=== PATIENT | female | born 1955 | race Caucasian/White ===

== ENCOUNTER 2022-06-25 14:32 | Emergency (ER) | payer BC ==
--- OUTSIDE RECORDS SUMMARY | 2022-06-25 14:35 | XMS REPORT | Clinical Summary ---
:1955 Author Organization [facility] MD [facility] Address [address] [place] [address] Care Team Providers Name Role Phone Luis Marti MD Unavailable MD Mac Primary Care Provider Kade Johnson MD Unavailable Allergies Active Allergy Reactions Severity Noted Date Comments Antihistamines - GI Intolerance Low 06/07/2020 Alkylamine Codeine GI Intolerance Low 09/19/2018 Other reactio n(s): nausea/vomiting Etodolac GI Intolerance, Low 10/07/2018 Extreme diar sonny Diarrhea Hydralazine Analogues Other (See Comments) 10/31/2020 migraine Hydrocodone GI Intolerance Low 09/19/2018 Other reactio n(s): nausea/vomiting Ibuprofen GI Intolerance Low 09/19/2018 Other reactio n(s): nausea/vomiting Morphine GI Intolerance Low 09/19/2018 Fuzzy head, n ot sure where she is Other reaction( s): nausea/vomiting Nabumetone Low 09/19/2018 Other reaction( s): nausea/vomiting Medications Medication Sig Dispensed Refills Start Date End Date Status alendronate once a week. 0 03/29/2020 Acti ve (FOSAMAX) 70 mg tablet cholecalciferol, Take 2,000 0 Ac tive vitamin D3, 25 mcg Units by mouth (1,000 unit) every other capsule day. cyanocobalamin Take 1,000 mcg 0 Active (VITAMIN B-12) 1000 by mouth every mcg tablet other day. rosuvastatin Take 20 mg by 0 Act kenan (CRESTOR) 20 mg mouth daily. tablet amLODIPine twice daily. 0 10/19/2020 Activ e (NORVASC) 5 mg tablet loperamide (IMODIUM Take 2 mg by 0 Active A-D) 2 mg tablet mouth as needed for diarrhea. bisoprolol (ZEBETA) daily. 0 09/19/20 Discontinued 5 mg tablet 21 (Therapy completed) spironolactone daily. 0 10/03/2020 09/19/20 Disc ontinued (ALDACTONE) 25 mg 21 (T herapy tablet completed) magnesium oxide 500 Take 1 tablet 90 tablet 1 12/13/202009/19 Discontinued mg (500 mg) by 21 (Therapy tabletIndications: mouth twice completed) Malignant neoplasm daily. of unspecified part of left bronchus or lung, not otherwise specified, Hypomagnesemia mupirocin APPLY 22 g 0 01/16/2021 09/19/20 Discontin ued (BACTROBAN) 2% TOPICALLY TO 21 (T herapy ointmentIndications AFFECTED completed) : Malignant AREA(S) TWICE neoplasm of DAILY. unspecified part of left bronchus or lung, not otherwise specified triamcinolone Apply 454 g 0 12/31/2020 09/19/20 Disco ntinued (KENALOG) 0.1% topically to 21 (T herapy creamIndications: affected co mpleted) Rash area(s) twice daily. to itchy red areas of rash (avoid face, armpit, groin) clobetasol Apply 45 g 1 12/31/2020 09/19/20 Disconti nued (TEMOVATE) 0.05% topically to 21 (Therapy creamIndications: affected co mpleted) Rash area(s) twice daily. thin smear to areas of most severe itching,inflam mation (avoid face, armpit, groin) mupirocin Apply 15 g 0 12/31/2020 09/19/20 Discontin ued (BACTROBAN) 2% topically to 21 (T herapy ointmentIndications affected completed) : Malignant area(s) twice neoplasm of daily. unspecified part of left bronchus or lung, not otherwise specified Active Problems Patient Care Coordination Note Formatting of this note might be differe nt from the original. Patient declines COVID-19 testing before radiation. Her last negative test was 09/11/20. Problem Noted Date Hyposmolality and/or hyponatremia 12/13/2020 Last Assessment & Plan: Formatting of th is note might be different from the original. Likely secondary to volume depletion fro m chronic diarrhea. Improved with hydration and IVF. She remains asymptomatic. We will recheck labs on 12/13 when she returns to clinic. Hyponatremia should improve as diarrhea is controlled. 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 Borderline prolon ged SC interval. Borderline rt axis deviation. nonspec ST depression, anterior leads 06/07/20: CT CHEST: IMPRESSION: 1. Enlarging lobulated 3.2 cm left uppe r lobe mass, suspicious for primary lung malignancy. 2. Nonspecific small pulmonary nodules, including a left upper lobe nodular opacity adjacent to the left major fissure that appears slightly more prominent, a new a small right upper lobe nodule, and o ther small stable pulmonary nodules. Alt catina those nodules are more likely related to infectious/inflammatory process, metastatic disease is also a consideration. Short-term follow-up CT advised for further assessment. 06/07/20: PETCT: IMPRESSION: There is a left upper lobe mass suspicio us for a primary lung malignancy. Degradation of image quality as a result of respiratory motion precludes evaluation of small pulmonary nodules of uncertain etio logy detected on breath-held imaging. 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 Overview: Degeneration Menopause 12/01/2001 Peripheral arterial occlusive disease (aka Peripheral artery disease) Overview: rt femoral stent 2008 and left femoral s tent 2017 Current use of anticoagulant Overview: xarelto Arteriosclerosis of carotid artery Overview: carotid artery stent lacement 2008 Coronary arteriosclerosis Encounters Date Type Specialty Care Team Description 05/15/2022 Office Visit Thoracic Medicine Carmencita Salamanca MD Primary m ucinous adenocarcinoma of lung <Unspecifi ed side> (Primary Dx) 05/15/2022 Ancillary Procedure Radiology Jean Paul Arzate, ALEJANDRA Prima ry mucinous adenocarcinoma of lung <Unspecifi ed side> 05/15/2022 Documentation Thoracic Medicine Mallory Ham 05/15/2022 Travel 01/23/2022 Office Visit Thoracic Medicine Carmencita Salamanca MD Primary m ucinous adenocarcinoma of lung <Unspecified side> (Primary Dx); Primary mucinou s adenocarcinoma of lung <Right side> 01/23/2022 Ancillary Procedure Radiology Primary mucinous adenocarcinoma of lung <Right christy e> 01/23/2022 Travel 10/10/2021 Office Visit Radiation Lakesha Watts, Malignant ne oplasm of Oncology unspecified part of [place], [place], right bronchu s or lung, not other shore specified 10/10/2021 Travel 09/19/2021 Office Visit Thoracic Medicine Carmencita Salamanca MD Primary m ucinous adenocarcinoma of lung <Right side> (Primary Dx); Malignant neopl asm of unspecified part of unspecified bronchus or lung 09/19/2021 Ancillary Procedure Radiology Carmencita Salamanca MD Maligna nt neoplasm of unspecified par t of unspecified bro nchus or lung 09/19/2021 Travel after 06/25/2021 Immunizations Name Administration Dates Next Due Pfizer SARS-CoV-2 Vaccination (Purple Cap) 02/25/2021, 030 05/2021 Surgical History Surgery Date Site/Laterality Comments HIP ARTHROPLASTY 11/01/2008 Right hip SECTION, CLASSIC 12/01/1994 - 11/30/1995 SECTION, CLASSIC 12/01/1993 - 11/30/1994 CYST REMOVAL 12/01/1999 - gangliion cyst r emoved 11/30/2000 L&R feet TOTAL HIP ARTHROPLASTY 11/01/2008 Right CAROTID STENT 08/09/2009 FEMORAL ARTERY STENT 10/13/2009 WRIST SURGERY 12/01/2009 - Left 11/30/2010 WRIST SURGERY 04/13/2013 Right FEMORAL ARTERY STENT 10/09/2018 [facility] EB[facility] 09/12/2020 N/A Procedure : BRONCHOSCOPY DX/TX INTERVENTION PERPH WITH EB US PERIPHERAL LES LESION-RADIAL SC OBE; Surgeon: Lavon Fitzgerald MD; Location: M AIN PULM PROC; Service: PULMONARY [facility] EBUS GUIDED 09/12/2020 N/A Procedure : BRONCHOSCOPY SAMPL 3/> NODE WITH EBUS 3 OR M ORE STATION/STRUX NODES; Surgeon: Lavon Fitzgerald MD; Lo cation: MAIN PULM PROC; Service: PULMONARY Medical History Medical History Date Comments Hypertension 2005 Hyperlipidemia 2016 Tooth disorder 2002 Degeneration Menopause 2001 Anemia 2014 Hemachromatosis Osteoporosis 2012 Arthritis 2011 Coronary arteriosclerosis Peripheral arterial occlusive disease rt femoral stent 2008 and left femoral stent 2018 Current use of anticoagulant xarelto Arteriosclerosis of carotid artery carot id artery stent lacement 2008 Social History Tobacco Use Types Packs/Day Years Used Date Former Smoker Cigarettes 1.5 25 02/17/1983 - 0 06/19/2011 Smokeless Tobacco: Never Used Comments: No longer smokes. Alcohol Use Standard Drinks/Week Comments Yes 14 (1 standard drink = 0.6 oz pure alcoh ol) Sex Assigned at Date Recorded Not on file Job Start Date Occupation Industry Not on file Not on file Not on file Obstetrics History Last Filed Vital Signs Vital Sign Reading Time Taken Comments Blood Pressure 152/69 05/15/2022 2:18 PM CDT Pulse 77 05/15/2022 2:18 PM CDT Temperature 36.8 C (98.2 F) 05/15/2022 2:18 PM CDT Respiratory Rate 18 05/15/2022 2:18 PM CDT Oxygen Saturation - - Inhaled Oxygen Concentration - - Weight 66.9 kg (147 lb 7.8 oz) 05/15/2022 2:18 PM CDT Height - - Body Mass Index 25.49 10/19/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 Plan of Treatment Date Type Specialty Care Team Description 08/14/2022 Lab Lab Patti Hughes, [employer] [address] [place], [place] [address] (Wo rk) 08/14/2022 Ancillary Procedure Radiology Julien Hughes, [employer] [address] [place], [place] [address] (Wo rk) 08/14/2022 Office Visit Thoracic Medicine Carmencita Salamanca MD [address] [place], [place] [address] (Wo rk) Health Maintenance Due Date Last Done Comments COVID-19 Vaccination (3 - Pfizer risk 03/25/2021 02/25/2021 , 02/03/2021 series) Medical Devices Implanted Type Area Aviation Safety Officer Device Identifier Shelf Exp iration Model / Date Serial / L ot Rt Wrist Plate Procedures Procedure Name Priority Date/Time Associated Diagnosis Comme nts PETCT SUBSEQUENT Routine 05/15/2022 12:09 Primary mucinous Res ults for this TREATMENT STRATEGY PM CDT adenocarcinoma of proc edure are in lung <Unspecified the result s side> section. FRACTIONATED BILIRUBIN Routine 05/15/2022 10:14 Primary mucino us Results for this AM CDT adenocarcinoma of procedure are in lung <Unspecified the result s side> section. TOTAL PROTEIN Routine 05/15/2022 10:14 Primary mucinous Result s for this AM CDT adenocarcinoma of procedure are in lung <Unspecified the result s side> section. ASPARTATE Routine 05/15/2022 10:14 Primary mucinous Results for this AMINOTRANSFERASE AM CDT adenocarcinoma of proced ure are in lung <Unspecified the result s side> section. ALANINE Routine 05/15/2022 10:14 Primary mucinous Results for this AMINOTRANSFERASE AM CDT adenocarcinoma of proced ure are in lung <Unspecified the result s side> section. ALKALINE PHOSPHATASE Routine 05/15/2022 10:14 Primary mucinous Results for this AM CDT adenocarcinoma of procedure are in lung <Unspecified the result s side> section. ALBUMIN LEVEL Routine 05/15/2022 10:14 Primary mucinous Result s for this AM CDT adenocarcinoma of procedure are in lung <Unspecified the result s side> section. CALCIUM LEVEL TOTAL Routine 05/15/2022 10:14 Primary mucinous Results for this AM CDT adenocarcinoma of procedure are in lung <Unspecified the result s side> section. .GLOMERULAR FILTRATION Routine 05/15/2022 10:14 Primary mucino us Results for this RATE AM CDT adenocarcinoma of procedure are in lung <Unspecified the result s side> section. SERUM CREATININE Routine 05/15/2022 10:14 Primary mucinous Res ults for this AM CDT adenocarcinoma of procedure are in lung <Unspecified the result s side> section. ELECTROLYTE PANEL Routine 05/15/2022 10:14 Primary mucinous Re sults for this AM CDT adenocarcinoma of procedure are in lung <Unspecified the result s side> section. BLOOD UREA NITROGEN Routine 05/15/2022 10:14 Primary mucinous Results for this AM CDT adenocarcinoma of procedure are in lung <Unspecified the result s side> section. GLUCOSE LEVEL Routine 05/15/2022 10:14 Primary mucinous Result s for this AM CDT adenocarcinoma of procedure are in lung <Unspecified the result s side> section. MANUAL DIFFERENTIAL Routine 05/15/2022 10:14 Primary mucinous Results for this AM CDT adenocarcinoma of procedure are in lung <Unspecified the result s side> section. Results CBC Routine 05/15/2022 10:14 Primary mucinous Results for this AM CDT adenocarcinoma of procedure are in lung <Unspecified the result s side> section. MAGNESIUM LEVEL Routine 05/15/2022 10:14 Primary mucinous Resu lts for this AM CDT adenocarcinoma of procedure are in lung <Unspecified the result s side> section. COMPREHENSIVE METABOLIC Routine 05/15/2022 10:14 Primary mucin ous PANEL AM CDT adenocarcinoma of lung <Unspecified side> COMPLETE BLOOD COUNT W/ Routine 05/15/2022 10:14 Primary mucin ous DIFFERENTIAL AM CDT adenocarcinoma of lung <Unspecified side> FRACTIONATED BILIRUBIN Routine 01/23/2022 10:32 Primary mucino us Results for this AM UPSETTER HELPER adenocarcinoma of procedure are in lung <Right side> the result s section. TOTAL PROTEIN Routine 01/23/2022 10:32 Primary mucinous Result s for this AM UPSETTER HELPER adenocarcinoma of procedure are in lung <Right side> the result s section. ASPARTATE Routine 01/23/2022 10:32 Primary mucinous Results for this AMINOTRANSFERASE AM UPSETTER HELPER adenocarcinoma of proced ure are in lung <Right side> the result s section. ALANINE Routine 01/23/2022 10:32 Primary mucinous Results for this AMINOTRANSFERASE AM UPSETTER HELPER adenocarcinoma of proced ure are in lung <Right side> the result s section. ALKALINE PHOSPHATASE Routine 01/23/2022 10:32 Primary mucinous Results for this AM UPSETTER HELPER adenocarcinoma of procedure are in lung <Right side> the result s section. ALBUMIN LEVEL Routine 01/23/2022 10:32 Primary mucinous Result s for this AM UPSETTER HELPER adenocarcinoma of procedure are in lung <Right side> the result s section. CALCIUM LEVEL TOTAL Routine 01/23/2022 10:32 Primary mucinous Results for this AM UPSETTER HELPER adenocarcinoma of procedure are in lung <Right side> the result s section. .GLOMERULAR FILTRATION Routine 01/23/2022 10:32 Primary mucino us Results for this RATE AM UPSETTER HELPER adenocarcinoma of procedure are in lung <Right side> the result s section. SERUM CREATININE Routine 01/23/2022 10:32 Primary mucinous Res ults for this AM UPSETTER HELPER adenocarcinoma of procedure are in lung <Right side> the result s section. ELECTROLYTE PANEL Routine 01/23/2022 10:32 Primary mucinous Re sults for this AM UPSETTER HELPER adenocarcinoma of procedure are in lung <Right side> the result s section. BLOOD UREA NITROGEN Routine 01/23/2022 10:32 Primary mucinous Results for this AM UPSETTER HELPER adenocarcinoma of procedure are in lung <Right side> the result s section. GLUCOSE LEVEL Routine 01/23/2022 10:32 Primary mucinous Result s for this AM UPSETTER HELPER adenocarcinoma of procedure are in lung <Right side> the result s section. MANUAL DIFFERENTIAL Routine 01/23/2022 10:32 Primary mucinous Results for this AM UPSETTER HELPER adenocarcinoma of procedure are in lung <Right side> the result s section. Results CBC Routine 01/23/2022 10:32 Primary mucinous Results for this AM UPSETTER HELPER adenocarcinoma of procedure are in lung <Right side> the result s section. LACTATE DEHYDROGENASE Routine 01/23/2022 10:32 Primary mucinou s Results for this AM UPSETTER HELPER adenocarcinoma of procedure are in lung <Right side> the result s section. MAGNESIUM LEVEL Routine 01/23/2022 10:32 Primary mucinous Resu lts for this AM UPSETTER HELPER adenocarcinoma of procedure are in lung <Right side> the result s section. COMPREHENSIVE METABOLIC Routine 01/23/2022 10:32 Primary mucin ous PANEL AM UPSETTER HELPER adenocarcinoma of lung <Right side> COMPLETE BLOOD COUNT W/ Routine 01/23/2022 10:32 Primary mucin ous DIFFERENTIAL AM UPSETTER HELPER adenocarcinoma of lung <Right side> PETCT SUBSEQUENT Routine 01/23/2022 10:03 Primary mucinous Res ults for this TREATMENT STRATEGY AM UPSETTER HELPER adenocarcinoma of proc edure are in lung <Right side> the result s section. PETCT SUBSEQUENT Routine 09/19/2021 12:48 Malignant neoplasm o f Results for this TREATMENT STRATEGY PM CDT unspecified part of pr ocedure are in unspecified bronchus the res ults or lung section. FRACTIONATED BILIRUBIN Routine 09/19/2021 11:25 Malignant neop lasm of Results for this AM CDT unspecified part of procedur e are in unspecified bronchus the res ults or lung section. TOTAL PROTEIN Routine 09/19/2021 11:25 Malignant neoplasm of R esults for this AM CDT unspecified part of procedur e are in unspecified bronchus the res ults or lung section. ASPARTATE Routine 09/19/2021 11:25 Malignant neoplasm of Re sults for this AMINOTRANSFERASE AM CDT unspecified part of proc edure are in unspecified bronchus the res ults or lung section. ALANINE Routine 09/19/2021 11:25 Malignant neoplasm of Re sults for this AMINOTRANSFERASE AM CDT unspecified part of proc edure are in unspecified bronchus the res ults or lung section. ALKALINE PHOSPHATASE Routine 09/19/2021 11:25 Malignant neopla sm of Results for this AM CDT unspecified part of procedur e are in unspecified bronchus the res ults or lung section. ALBUMIN LEVEL Routine 09/19/2021 11:25 Malignant neoplasm of R esults for this AM CDT unspecified part of procedur e are in unspecified bronchus the res ults or lung section. CALCIUM LEVEL TOTAL Routine 09/19/2021 11:25 Malignant neoplas m of Results for this AM CDT unspecified part of procedur e are in unspecified bronchus the res ults or lung section. .GLOMERULAR FILTRATION Routine 09/19/2021 11:25 Malignant neop lasm of Results for this RATE AM CDT unspecified part of procedur e are in unspecified bronchus the res ults or lung section. SERUM CREATININE Routine 09/19/2021 11:25 Malignant neoplasm o f Results for this AM CDT unspecified part of procedur e are in unspecified bronchus the res ults or lung section. ELECTROLYTE PANEL Routine 09/19/2021 11:25 Malignant neoplasm of Results for this AM CDT unspecified part of procedur e are in unspecified bronchus the res ults or lung section. BLOOD UREA NITROGEN Routine 09/19/2021 11:25 Malignant neoplas m of Results for this AM CDT unspecified part of procedur e are in unspecified bronchus the res ults or lung section. GLUCOSE LEVEL Routine 09/19/2021 11:25 Malignant neoplasm of R esults for this AM CDT unspecified part of procedur e are in unspecified bronchus the res ults or lung section. MANUAL DIFFERENTIAL Routine 09/19/2021 11:25 Malignant neoplas m of Results for this AM CDT unspecified part of procedur e are in unspecified bronchus the res ults or lung section. Results CBC Routine 09/19/2021 11:25 Malignant neoplasm of Re sults for this AM CDT unspecified part of procedur e are in unspecified bronchus the res ults or lung section. MAGNESIUM LEVEL Routine 09/19/2021 11:25 Malignant neoplasm of Results for this AM CDT unspecified part of procedur e are in unspecified bronchus the res ults or lung section. COMPREHENSIVE METABOLIC Routine 09/19/2021 11:25 Malignant treasure plasm of PANEL AM CDT unspecified part of unspecified bronchus or lung COMPLETE BLOOD COUNT W/ Routine 09/19/2021 11:25 Malignant treasure plasm of DIFFERENTIAL AM CDT unspecified part of unspecified bronchus or lung POC GLUCOSE SCREEN Routine 09/19/2021 11:21 Resul ts for this AM CDT procedure are i n the results section. after 06/25/2021 Results PETCT Subsequent Treatment Strategy (05/15/2022 12:09 PM CDT)Only the most recent of3 resultswithin the time period is included. Anatomical Region Laterality Modality Whole Body Positron Emission To mography (PET) Specimen (Source) Anatomical Collection Method Collection Time Re ceived Time Location / / Volume Laterality 05/15/2022 1:24 PM CDT Impressions 05/15/2022 2:02 PM CDT Stable post radiation findings in the left upper lobe Increase in density and development of F DG uptake in a right lower lobe mix attenuation lesion. This may represent lung adenocarcinoma or inflammatory process. Consider tissue sampling for further evaluation Narrative 05/15/2022 2:02 PM CDT FULL RESULT: Examination: FDG-PET/CT, 05/15/2022 12:09 PM Tumor Type: Mucinous adenocarcinoma of l hiren Clinical History: Mucinous adenocarcinom a of lung Indication: FDG-PET/CT is obtained to as sess extent of disease prior to subsequent treatment decisions. Comparison: 01/23/2022 Technique: Radiopharmaceutical: F-18 fluorodeoxyglu cose Administered activity: 9.1 mCi Route of administration: Intravenous via the right antecubital vein Localization time: 64 minutes Scan range: Vertex of the skull to the p roximal thighs CT scanning: Dose-optimized noncontrast CT Findings: Head and Neck: Nonspecific small thyroid nodules are st able. There is no hypermetabolic lymph node in the neck. Chest: Left upper lobe opacity with associated volume loss is unchanged. 2.5 cm mixed attenuation lesion in the medial right lower lobe (image 244) has increased in density compared to 01/23/2022 and was not pr esent on CT of 02/19/2021. This lesion no w has SUV max of 3.0. There is no hypermetabolic mediastinal or hilar lymph nodes. Atherosclerotic calcification of aorta and coronary arteries is noted. Small hiatal hernia is noted. Abdomen and Pelvis: There is no hydronephrosis. Hypodense ri ght renal lesion is stable. Heterogeneous FDG uptake in the liver is likely physiologic. Physiologic FDG uptake is noted in the spleen. Adrenal glands are within normal limits Musculoskeletal: Right hip prosthesis is again noted with streak artifacts obscuring adjacent structures. There are degenerative changes of osseous structures noted. Procedure Note Scarlett Strickland MD - 05/15/2022 FULL RESULT: Examination: FDG-PET/CT, 05/15/2022 12:09 PM Tumor Type: Mucinous adenocarcinoma of l hiren Clinical History: Mucinous adenocarcinom a of lung Indication: FDG-PET/CT is obtained to as sess extent of disease prior to subsequent treatment decisions. Comparison: 01/23/2022 Technique: Radiopharmaceutical: F-18 fluorodeoxyglu cose Administered activity: 9.1 mCi Route of administration: Intravenous via the right antecubital vein Localization time: 64 minutes Scan range: Vertex of the skull to the p roximal thighs CT scanning: Dose-optimized noncontrast CT Findings: Head and Neck: Nonspecific small thyroid nodules are st able. There is no hypermetabolic lymph node in the neck. Chest: Left upper lobe opacity with associated volume loss is unchanged. 2.5 cm mixed attenuation lesion in the medial right lower lobe (image 244) has increased in density compared to 01/23/2022 and was not present on CT of 02/19/2021. This lesion now has SUV max o f 3.0. There is no hypermetabolic mediastinal or hilar lymph nodes. Atherosclerotic calcification of aorta and coronary arteries is noted. Small hiatal hernia is noted. Abdomen and Pelvis: There is no hydronephrosis. Hypodense ri ght renal lesion is stable. Heterogeneous FDG uptake in the liver is likely physiologic. Physiologic FDG uptake is noted in the spleen. Adrenal glands are within normal limits Musculoskeletal: Right hip prosthesis is again noted with streak artifacts obscuring adjacent structures. There are degenerative changes of osseous structures noted. IMPRESSION: Stable post radiation findings in the le ft upper lobe Increase in density and development of F DG uptake in a right lower lobe mix attenuation lesion. This may represent lung adenocarcinoma or inflammatory process. Consider tissue sampling for further evaluation Jean Paul Arzate NP IMG PETCT ORDERABLES .Serum Creatinine (05/15/2022 10:14 AM CDT)Only the most recent of3 results within the time period is included. athologist Signature Creatinine 0.53 0.51 - 0.95 [facility] mg/dL REGION Comment: Testing performed at [facility], [address], [place] [address] Specimen Anatomical Collection Method Collection Time Receive d Time (Source) Location / / Volume Laterality Blood 05/15/2022 10:14 05/15/2022 AM CDT 11:36 AM CDT Jean Paul Arzate NP LAB BLOOD ORDERABLES Performing Organization Address City/State/[place] [phone] (ABNORMAL) .CBC (05/15/2022 10:14 AM CDT)Only the most recent of3 resultswithin the time period is included. P athologist Signature WBC 7.5 4.0 - 11.0 [facility] K/uL REGION Comment: All components of the CBC perfo rmed at [facility], [address] [facility], [place] [address] RBC 3.28 (L) 4.00 - 5.50 M/uL [facility] Comment: All components of the CBC perfo rmed at [facility], [address] [facility], [place] [address] Hgb 11.6 (L) 12.0 - 16.0 gm/dL [facility] Comment: As part of CBC or as an individ ual orderable testing performed at [facility], [address] [place] [address] Hct 34.3 (L) 37.0 - 47.0 % [facility] REG ION Comment: As part of CBC or as an individ ual orderable testing performed at [facility], [address] [facility], [place] [address] MCV 105 (H) 82 - 98 fL [facility] Comment: All components of the CBC perfo rmed at [facility], [address] [facility], [place] [address] MCH 35.4 (H) 27.0 - 31.0 pg [facility] RE GIEL Comment: All components of the CBC perfo rmed at [facility], [address] [facility], [place] [address] MCHC 33.8 31.0 - 36.0 gm/dL [facility] Comment: All components of the CBC perfo rmed at [facility], [address] [facility], [place] [address] RDW-SD 53.3 (H) 35.1 - 46.3 fL [facility] RE GION Comment: All components of the CBC perfo rmed at [facility], [address] [facility], [place] [address] RDW-CV 13.9 12.0 - 15.5 % [facility] REG ION Comment: All components of the CBC perfo rmed at [facility], [address] [facility], [place] [address] Platelet count 327 140 - 440 K/uL [facility] REGION Comment: As part of CBC or as an individ ual orderable testing performed at [facility], [address] [facility], [place] [address] MPV 9.6 4.0 - 10.4 fL [facility] REG ION Comment: All components of the CBC perfo rmed at [facility], [address] [facility], [place] [address] Specimen Anatomical Collection Method Collection Time Receive d Time (Source) Location / / Volume Laterality Blood 05/15/2022 10:14 05/15/2022 AM CDT 11:34 AM CDT Jean Paul Arzate NP LAB BLOOD ORDERABLES Performing Organization Address City/State/[place] [address] [phone] [facility] Glomerular Filtration Rate (05/15/2022 10:14 AM CDT)Only the most recent of3 resultswithin the time period is included. athologist Signature eGFR-AA 114 >=60 [facility] mL/min/1.73 REGION sq. m Comment: Normal eGFR >= 60 mL/min/1.73 m2 Note: The eGFR is calculated using the C KD-EPI equation. The eGFR declines with age. eGFR <60 mL/min/1.73 m2 is considered as "decreased". This equation should only be used for patients 18 and older. According to the National [employer] ion's Kidney Disease Outcome Quality Initiative (KDOQI) classification and 2012 Kidney Disease Improving Global Outcomes (KDIGO) Clinical Practice Guideline, the stage of CKD should be categorized based on estimated GFR. Stage Description GFR mL/min/1. 73 m2 1 Normal or high GFR >=90 2 Mildly decreased GFR 60-89 3a Mildly to moderately decreased GFR 45-59 3b Moderately to severely decreased GFR 30-44 4 Severely decreased GFR 15-29 5 Kidney failure <15 Testing performed at [facility], [address] [facility], [place] [address] eGFR-RD 99 >=60 mL/min/1.73 sq. m [facility] Comment: Normal eGFR >= 60 mL/min/1.73 m2 Note: The eGFR is calculated using the C KD-EPI equation. The eGFR declines with age. eGFR <60 mL/min/1.73 m2 is considered as "decreased". This equation should only be used for patients 18 and older. According to the National [employer] ion's Kidney Disease Outcome Quality Initiative (KDOQI) classification and 2012 Kidney Disease Improving Global Outcomes (KDIGO) Clinical Practice Guideline, the stage of CKD should be categorized based on estimated GFR. Stage Description GFR mL/min/1. 73 m2 1 Normal or high GFR >=90 2 Mildly decreased GFR 60-89 3a Mildly to moderately decreased GFR 45-59 3b Moderately to severely decreased GFR 30-44 4 Severely decreased GFR 15-29 5 Kidney failure <15 Testing performed at [facility], [address] [place] [address] Specimen Anatomical Collection Method Collection Time Receive d Time (Source) Location / / Volume Laterality Blood 05/15/2022 10:14 05/15/2022 AM CDT 11:36 AM CDT Jean Paul Arzate NP LAB BLOOD ORDERABLES Performing Organization Address City/State/ZIP Code Phon e Number [facility] [place] [phone] [facility] Fractionated Bilirubin (05/15/2022 10:14 AM CDT)Only the most recent of3 results within the time period is included. athologist Signature Bili Total 0.7 <=1.2 mg/dL [facility] Comment: Indocyanine Green (ICG) may cause falsel y elevated bilirubin results. Total and direct bilirubin must not be measured from samples containing indocyanine green. False elevation of total bilirubin can b e seen in patients with IgG concentrations above 28 g/L. Testing [facility] [address] [facility] [place] [address] Bili Direct <0.2 <=0.3 mg/dL [facility] REG ION Comment: Indocyanine Green (ICG) may cause falsel y elevated bilirubin results. Total and direct bilirubin must not be measured from samples containing indocyanine green. Testing performed at [facility], [address] [facility], [place] [address] Bili Indirect See Note 0.0 - 0.9 mg/dL [facility] REGION Comment: Unable to calculate Indirect Bilirubin r esult due to some parameters are outside reportable range Testing performed at [facility], [address] [place] [address] Specimen Anatomical Collection Method Collection Time Receive d Time (Source) Location / / Volume Laterality Blood 05/15/2022 10:14 05/15/2022 AM CDT 11:36 AM CDT Jean Paul Arzate NP LAB BLOOD ORDERABLES Performing Organization Address City/State/Z[place] [address] [phone] [facility] (ABNORMAL) Differential (05/15/2022 10:14 AM CDT)Only the most recent of3 resultswithin the time period is included. athologist Signature Neutrophil % 69.3 (H) 42.0 - [facility] 66.0 % REGION Comment: As part of Differential perform ed at [facility], [address] [place] [address] Lymphocyte % 18.1 (L) 24.0 - 44.0 % [facility] Comment: As part of Differential perform ed at [facility], [address] [place] [address] Monocyte % 11.0 (H) 2.0 - 7.0 % [facility] CHANCE ON Comment: As part of Differential perform ed at [facility], [address] [place] [address] Eosinophil % 0.9 (L) 1.0 - 4.0 % [facility] RE GION Comment: As part of Differential perform ed at [facility], [address] [place] [address] Basophil % 0.4 0.0 - 1.0 % [facility] CHANCE ON Comment: As part of Differential perform ed at [facility], [address] [place] [address] IGRE % 0.3 0.0 - 0.4 % [facility] REGIO N Comment: IGRE % count includes Metamyelocytes, My elocytes, and Promyelocytes. As part of Differential performed at [facility], [address] [place] [address] Neutrophil Abs 5.18 1.70 - 7.30 K/uL [facility] REGION Comment: As part of Differential perform ed at [facility], [address] [place] [address] Lymphocyte Abs 1.35 1.00 - 4.80 K/uL [facility] REGION Comment: As part of Differential perform ed at [facility], [address], [place] [address] Monocyte Abs 0.82 (H) 0.08 - 0.70 K/uL [facility] Comment: As part of Differential perform ed at [facility], [address] [facility], [place] [address] Eosinophil Abs 0.07 0.04 - 0.40 K/uL [facility] REGION Comment: As part of Differential perform ed at [facility], [address] [facility], [place] [address] Basophil Abs 0.03 0.00 - 0.10 K/uL [facility] Comment: As part of Differential perform ed at [facility], [address] [facility], [place] [address] IG Abs 0.02 0.00 - 0.04 K/uL [facility] REGION Comment: As part of Differential perform ed at [facility], [address] [facility], [place] [address] Specimen Anatomical Collection Method Collection Time Receive d Time (Source) Location / / Volume Laterality Blood 05/15/2022 10:14 05/15/2022 AM CDT 11:34 AM CDT Jean Paul Arzate NP LAB BLOOD ORDERABLES Performing Organization Address City/State/[place] [phone] BUN (05/15/2022 10:14 AM CDT)Only the most recent of3 resultswithin the time period is included. P athologist Signature BUN 14 6 - 23 [facility] mg/dL REGION Comment: Testing performed at [facility], [address] [facility], [place] [address] Specimen Anatomical Collection Method Collection Time Receive d Time (Source) Location / / Volume Laterality Blood 05/15/2022 10:14 05/15/2022 AM CDT 11:36 AM CDT Jean Paul Arzate NP LAB BLOOD ORDERABLES Performing Organization Address City/State/[place] [phone] ALT (05/15/2022 10:14 AM CDT)Only the most recent of3 resultswithin the time period is included. P athologist Signature ALT 11 <=33 U/L [facility] Comment: Testing performed at [facility], [address], [place] [address] Specimen Anatomical Collection Method Collection Time Receive d Time (Source) Location / / Volume Laterality Blood 05/15/2022 10:14 05/15/2022 AM CDT 11:36 AM CDT Jean Paul Arzate NP LAB BLOOD ORDERABLES Performing Organization Address City/State/Z[place] [address] [phone] Aspartate Aminotransferase (05/15/2022 10:14 AM CDT)Only the most recent of3 resultswithin the time period is included. P athologist Signature AST 20 <=32 U/L [facility] Comment: Testing performed at [facility], [address], [place] [address] Specimen Anatomical Collection Method Collection Time Receive d Time (Source) Location / / Volume Laterality Blood 05/15/2022 10:14 05/15/2022 AM CDT 11:36 AM CDT Jean Paul Arzate NP LAB BLOOD ORDERABLES Performing Organization Address City/State/[place] [address] [phone] Total Protein (05/15/2022 10:14 AM CDT)Only the most recent of3 resultswithin the time period is included. P athologist Signature Total Protein 7.7 6.4 - 8.3 [facility] g/dL REGION Comment: Testing performed at [facility], [address] [facility], [place] [address] Specimen Anatomical Collection Method Collection Time Receive d Time (Source) Location / / Volume Laterality Blood 05/15/2022 10:14 05/15/2022 AM CDT 11:36 AM CDT Jean Paul Arzate NP LAB BLOOD ORDERABLES Performing Organization Address City/State/[place] [phone] (ABNORMAL) Alkaline Phosphatase (05/15/2022 10:14 AM CDT)Only the most recent of 3 resultswithin the time period is included. P athologist Signature Alk Phos 151 (H) 35 - 104 [facility] U/L REGION Comment: Testing performed at [facility], [address] [facility], [place] [address] Specimen Anatomical Collection Method Collection Time Receive d Time (Source) Location / / Volume Laterality Blood 05/15/2022 10:14 05/15/2022 AM CDT 11:36 AM CDT Jean Paul Arzate NP LAB BLOOD ORDERABLES Performing Organization Address City/State/[place] [phone] (ABNORMAL) Magnesium Level (05/15/2022 10:14 AM CDT)Only the most recent of3 resultswithin the time period is included. athologist [facility] Magnesium 1.4 (L) 1.6 - 2.6 [facility] mg/dL REGION Comment: Testing performed at [facility], [address], [place] [address] Specimen Anatomical Collection Method Collection Time Receive d Time (Source) Location / / Volume Laterality Blood 05/15/2022 10:14 05/15/2022 AM CDT 11:36 AM CDT Jean Paul Arzate NP LAB BLOOD ORDERABLES Performing Organization Address City/State/[place] [phone] (ABNORMAL) Glucose Level (05/15/2022 10:14 AM CDT)Only the most recent of3 resultswithin the time period is included. P athologist Signature Glucose Level 106 (H) 70 - 99 [facility] mg/dL REGION Comment: Effective 06/26/16, the glucose reference intervals have been updated based on [place] [employer] guidelines (Standards of Medical Care in Diabetes 2016. Diabetes Care 2016; 39: S13-S22). Fasting blood glucose: Normal: 70-99 mg/dL Impaired fasting glucose (increased risk for diabetes or pre-diabetes): 100- 125 mg/dL Diabetes mellitus: >/=126 mg/dL Random blood glucose: Normal: 70-199 mg/dL Note: Random glucose >100 mg/dL is assoc iated with increased risk for diabetes Testing performed at [facility], [address] [place] [address] Specimen Anatomical Collection Method Collection Time Receive d Time (Source) Location / / Volume Laterality Blood 05/15/2022 10:14 05/15/2022 AM CDT 11:36 AM CDT Jean Paul Arzate NP LAB BLOOD ORDERABLES Performing Organization Address City/State/[place] [phone] Calcium Level (05/15/2022 10:14 AM CDT)Only the most recent of3 resultswithin the time period is included. P athologist Signature Calcium Lvl 10.2 8.4 - 10.2 [facility] mg/dL REGION Comment: Testing performed at [facility], [address] [facility], [place] [address] Specimen Anatomical Collection Method Collection Time Receive d Time (Source) Location / / Volume Laterality Blood 05/15/2022 10:14 05/15/2022 AM CDT 11:36 AM CDT Jean Paul Arzate NP LAB BLOOD ORDERABLES Performing Organization Address City/[facility]/ZIP [place] [phone] Albumin Level (05/15/2022 10:14 AM CDT)Only the most recent of3 resultswithin the time period is included. P athologist Signature Albumin Lvl 4.4 3.5 - 5.2 [facility] gm/dL REGION Comment: Testing performed at [facility], [address] [facility], [place] [address] Specimen Anatomical Collection Method Collection Time Receive d Time (Source) Location / / Volume Laterality Blood 05/15/2022 10:14 05/15/2022 AM CDT 11:36 AM CDT Jean Paul Arzate NP LAB BLOOD ORDERABLES Performing Organization Address City/State/[place] [phone] (ABNORMAL) Electrolyte Panel (05/15/2022 10:14 AM CDT)Only the most recent of3 resultswithin the time period is included. athologist Signature Sodium Lvl 139 136 - 145 [facility] mEq/L REGION Comment: Testing performed at [facility], [address] [facility], [place] [address] Potassium Lvl 3.4 (L) 3.5 - 5.1 mEq/L [facility] ON REGION Comment: Testing performed at [facility], [address] [facility], [place] [address] Chloride 97 (L) 98 - 107 mEq/L [facility] RE GION Comment: Testing performed at [facility], [address] [facility], [place] [address] CO2 30 (H) 22 - 29 mEq/L [facility] REG ION Comment: Testing performed at [facility], [address] [facility], [place] [address] Anion Gap 12 4 - 14 mEq/L [facility] CHANCE ON Comment: Testing performed at [facility], [address] [facility], [place] [address] Specimen Anatomical Collection Method Collection Time Receive d Time (Source) Location / / Volume Laterality Blood 05/15/2022 10:14 05/15/2022 AM CDT 11:36 AM CDT Jean Paul Arzate NP LAB BLOOD ORDERABLES Performing Organization Address City/State/Z[place] [phone] LDH (01/23/2022 10:32 AM UPSETTER HELPER) athologist Signature LDH 171 135 - 214 [facility] U/L Comment: Results greater than 1651 U/L may not be reliable due to matrix effect with extended dilution as it exceeds the dyeing machine feeder s recommended limit. Caution should be exercised when interpreting such fouzia ues and done in conjunction with clinica l context. Testing performed at [facility], [address] [place] [address] Specimen Anatomical Collection Method Collection Time Receive d Time (Source) Location / / Volume Laterality Blood 01/23/2022 10:32 01/23/2022 AM UPSETTER HELPER 10:39 AM UPSETTER HELPER Jean Paul Arzate NP LAB BLOOD ORDERABLES Performing Organization Address City/State/ZIP Code Phon e Number [facility] [place] [address] [address] [facility] [place] [address] [facility] (ABNORMAL) POC Glucose Screen (09/19/2021 11:21 AM CDT) athologist Signature POC Glucose 116 (H) 70 - 99 POC [facility] mg/dL Comment: Capillary blood samples, e.g. obtained b y fingerstick, may have inaccurate results in patients with decreased peripheral blood flow. Method description: All results are mimi ured using Electrochemistry test methodology. The glucose in the sample mixes with the reagents on the test strip. The reaction produces an electric current. The amount of current produced is proportion al to the glucose concentration in the blood. PO Sample Type Venous POC [facility] Performing Lab [facility] POC [facility] Comment: Diagnostic Imaging [facility], [address] [place] [address]; Point of Care Loan Originator: Meron Alston MD Specimen Anatomical Collection Method Collection Time Receive d Time (Source) Location / / Volume Laterality Blood 09/19/2021 11:21 09/19/2021 AM CDT 11:21 AM CDT Carmencita Salamanca MD POCT ORDERABLES - DEVICE Performing Organization Address City/State/ZIP Code Phon e Number POC [facility] after 06/25/2021 Insurance Payer Benefit Plan / Subscriber ID Effective Dates Phone Addre ss Type Group [employer] PPO POS [id number] 1995-Present [address] [place] [address] Guarantor Name Account Type Relation to Date of Phone Bill ing Patient Address Jesusita Rodriguez Personal/Family Self 1955 [address] (Home) [place] [address] Jesusita Rodriguez Personal/Family Self 1955 [address]) [place] [address] Care Teams Pumper Gager Relationship Specialty Start Date End Date Luis Marti MD PCP - External Internal Medicine 05/23/[address] [place] [id number] Lakesha Watts MD PCP - General Cardiothoracic Surgery 05/23/20 [address] [place], [place] [id number] Medardo Johnson 09/20/20 MD [address]ade
--- OUTSIDE RECORDS SUMMARY | 2022-06-25 14:37 | XMS REPORT | Continuity of Care Document ---
:1955 Author Organization [facility] t Address [address] [place] [address] Care Team Providers Name Role Phone [phone] Primary Care Physician Unavailable SYSTEM, NOT IN Attending Clinician Unavailable JOSE Attending Clinician Unavailable ROBSON Attending Clinician Unavailable Cheikh JULES Attending Clinician Ne ROBERTS Attending Clinician Jitendra Attending Clinician Unavailable CHEIKH Attending Clinician Unavailable Mac JULES Attending Clinician Christi JULES Attending Clinician MAC Attending Clinician Unavailable CHRISTI Attending Clinician Unavailable NE Attending Clinician Unavailable Andrea CARDENAS Attending Clinician Unavailable Dilcia FOSS Attending Clinician Unavailable Fortunato ARGUETA Attending Clinician Unavailable Spencer TALBOT Attending Clinician Unavailable DAMON MARTINEZ Attending Clinician Unavailable Andrea CARDENAS Admitting Clinician Unavailable Payers Payer Name Policy Type Policy Number Effective Date Expiration Date S ource [place] POS [id number] 1995 00:00:00 Problems Condition Condition Condition Status Onset Resolution Last Treating Co mments Source Name Details Category Date Date Treatment Clinician Date Hyposmolal Hyposmolal Disease Active Last U nivers ity and/or ity and/or 1-13 Assessmen ity of hyponatrem hyponatrem 00:00: t & Plan: [place] 00 Formatroge JULES g of this Anders note n might be Cancer different Center from the original. Likely secondary to volume depletion from chronic diarrhea. Improved with hydration and IVF. She remains asymptoma tic. We will recheck labs on 12/13 when she returns to clinic. Hyponatre tasha should improve as diarrhea is controlle d. 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 Center 06/27/20: EK, SR. Borderlin e prolonged [place] interval. Borderlin e rt axis deviation . nonspec ST depressio n, anterior leads 06/07/20: CT CHEST: IMPRESSIO N:1. Enlarging lobulated 3.2 cm left upper lobe mass, suspiciou s for primary lung malignanc y.2. Nonspecif ic small pulmonary nodules, including a left upper lobe nodular opacity adjacent to the left major fissure that appears slightly more prominent , a new a small right upper lobe nodule, and other small stable pulmonary nodules. Although those nodules are more likely related to infectiou s/inflamm atory process, metastati c disease is also a considera tion. Short-ter m follow-up CT advised for further assessmen t. 0: PETCT: IMPRESSIO N:There is a left upper lobe mass suspiciou s for a primary lung malignanc y. Degradati on of image quality as a result of respirato ry motion precludes evaluatio n of small pulmonary nodules of uncertain etiology detected on breath-he ld imaging. There are no chu or distant-e xtrathora cic systemic metastase s Hypertensi Hypertensi Disease Active U nivers on on 06-07 ity of 00:00: [place] 00 MD [facility] Stented Stented Disease Active Overview: Univ ers artery artery 06-07 Formattin ity of 00:00: g of this note might be Andshermano different n from the Cancer original. Center Bilateral femoral Anticoagul Anticoagul Disease Active 2020- U [place]by ant ant 7 ity of therapy therapy 00:00: MD [facility] Cerebrovas Cerebrovas Disease Active 2020-0 U [place] cular cular 06-07 ity of disease disease 00:00: 00 MD [facility] Peripheral Peripheral Disease Active 2020-0 U [place] vascular vascular 06-07 ity of disease disease 00:00: 00 MD [facility] Other Other Disease Active Univers dietary dietary 06-07 ity of vitamin vitamin 00:00: [place] B12 B12 00 deficiency deficiency An derso anemia anemia n Cancer Center Lung mass Lung mass Disease Active Uni vers 6-30 ity of 00:00: 00 MD [facility] 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 0-16 ity of pain pain 00:00: [place] syndrome syndrome 00 of lower of lower Percy o limb limb n Cancer Center Myofascial Myofascial Disease Active 2018-12 U nivsherman pain pain 0-16 ity of 00:00: [place] 00 MD [facility] Pain in Pain in Disease Active 2018-12 Univers left knee left knee 0-16 ity of 00:00: 00 MD [facility] Hyperlipid Hyperlipid Disease Active U shelby emia emia 12-01 ity of 00:00: [place] 00 MD [facility] Anemia Anemia Disease Active Overview: Univer s 12-01 Formattin ity of 00:00: g of this note might be Anderso different n from the Cancer original. 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 Center Degenerat ion Menopause Menopause Disease Active Uni vers 12-01 ity of 00:00: [place] 00 MD [facility] [place] Peripheral Peripheral Disease Active Overview : Univers arterial arterial Formattin ity of occlusive occlusive g of this [place] disease disease note (aka (aka might be Anderso Peripheral Peripheral different n artery artery from the Cancer disease) disease) original. [address] ter rt femoral stent 2008 and left femoral stent 2017 Current Current Disease Active Overview: Univ ers use of use of Formattin ity of anticoagul anticoagul g of this [place] ant ant note might be Anderso different n from the Cancer original. [place] xarelto Arterioscl Arterioscl Disease Active Overview : Univers erosis of erosis of Formattin i ty of carotid carotid g of this [place] artery artery note might be Anderso different n from the Cancer original. Center carotid artery stent lacement 2008 Coronary Coronary Disease Active Unive rs arterioscl arterioscl it y of erosis erosis [place] MD [facility] Allergies, Adverse Reactions, Alerts Allergy Allergy Status Severity Reaction(s) Onset Inactive Treating Comm ents Source Name Type Date Date Clinician Hydralaspencer Propmadhavi Active Other (See 2019-12 migraine Univers ine ty to Comments) 01-01 ity of Analogue adverse 00:00: [place] s reaction 00 MD samantha [facility]ant[facility] Antihist Drug Active GI Univers amines - Allergy Intolerance 06-07 it y of Alkylami 00:00: [place] ne 00 MD Aec santana [facility] Etodolac Drug Active Diarrhea 2017-12 Extreme Unive rs Allergy 12-07 diarrhea ity of 00:00: [place] 00 MD [facility] etodolac DA Active SV 2017-12 [facility] 12-07 [place] 00:00: [address] etodolac DA Active SV DIARRHEA 2017-12 [facility] 12-07 [place] 00:00: [address] ibuprofe DA Active SV 2017-12 [facility] n 0-20 [place] 00:00: [address] nabumeto DA Active SV 2017-12 [facility] ne 0-20 [place] 00:00: [address] antiflam DA Active SV 2017-12 [facility] matory 0-20 [place] medicati 00:00: [address] morphine DA Active SV nausea/vomit 2017-12 HC A ing 0-20 00:00: [address] codeine DA Active SV nausea/vomit 2017-12 [facility] ing 0-20 00:00: [address] hydrocod DA Active SV nausea/vomit 2017-12 HC A one ing 0-20 West 00:00: [address] ibuprofe DA Active SV nausea/vomit 2017-12 HC A n ing 0-20 00:00: [address] nabumeto DA Active SV nausea/vomit 2017-12 HC A ne ing 0-20 West 00:00: [address] Codeine Drug Active GI 2017-12 Other Univers Allergy Intolerance 0-20 reaction( i ty of 00:00: s): [place] nausea/vo MD robin Bello [facility] Hydrocod Drug Active GI 2017-12 Other Univers one Allergy Intolerance 0-20 reaction( i ty of 00:00: s): [place] nausea/vo MD robin santana [facility] Ibuprofe Drug Active GI 2017-12 Other Univers n Allergy Intolerance 0-20 reaction( i ty of 00:00: s): [place] nausea/vo MD robin santana [facility] Morphine Drug Active GI 2017-12 Fuzzy Univers Allergy Intolerance 0-20 head, not i ty of 00:00: sure [place] where she MD Finesse Bello reaction( n s): Cancer nausea/vo Center [facility] Nabumeto Drug Active 2017-12 Other Univers ne Allergy 0-20 reaction( ity of 00:00: s): [place] nausea/vo MD robin Bello [facility] morphine DA Active SV 2017-12 [facility] 0-20 [place] 00:00: [address] codeine DA Active SV 2017-12 [facility] 0-20 [place] 00:00: [address] hydrocod DA Active SV 2017-12 [facility] one 0-20 00:00: [address] ANTIHIST DA Active U 2003-0 [facility] AMINE - 00:00: [address] No Known DA Active U 2003-0 [facility] Contrast - [place] Allergie 00:00: [address] No Known DA Active U 2003-0 [facility] Food - [place] Allergie 00:00: [address] No Known DA Active U 2003-0 [facility] Other 6-02 [place] Allergie 00:00: [address] Social History Social Habit Start Date Stop Date Quantity Comments Source Alcohol intake 2022-01-22 2022-01-22 Current drinker Unive rsity of 00:00:00 00:00:00 of alcohol [facility] ([facility] Cigarettes smoked 2020-06-07 2020-06-07 Univers ity of current (pack per 00:00:00 00:00:00 [place] Fortunato Raza Jimbo ) - Reported Cancer Ce nter Cigarette 2020-06-07 2020-06-07 University of pack-years 00:00:00 00:00:00 Ethan sanderson [facility] Tobacco use and 2020-06-07 2020-06-07 Smokeless Universit y of exposure 00:00:00 00:00:00 tobacco non-user [facility] Tobacco Comment 2020-06-07 2020-06-07 No longer Universit y of 00:00:00 00:00:00 smokes. Ethan sanderson [facility] History of tobacco 1983-02-17 2011-06-19 Current smoker Un iversity of use 00:00:00 00:00:00 Ethan sanderson [facility] Sex [birth year] Universit y of 00:00:00 00:00:00 Ethan sanderson [facility] Smoking Status Start Date Stop Date Source Ex-smoker 2020-06-07 00:00:00 2020-06-07 00:00:00 Universi ty of [facility] Medications Ordered Filled Start Stop Current Ordering Indication Dosage Frequency Signature Comments Components Source Medication Medication Date Date Medication? Clinician (SIG) Name Name cholecalcif Yes 2000U Take 2,000 Univers ramírez, 6-15 Units by ity of vitamin D3, 14:39: mouth [place] 25 mcg 02 every MD (1,000 other day. Anderso unit) n capsule Cancer Center cyanocobala Yes 1000ug Take 1,000 Univers min 6-15 mcg by ity of (VITAMIN 14:39: mouth [place] B-12) 1000 02 every MD mcg tablet other day. And erso n Cancer Center rosuvastati Yes 20mg Take 20 mg Univers n (CRESTOR) 6-15 by mouth ity of 20 mg 14:39: daily. [place] tablet 02 MD [facility] loperamide Yes 2mg Take 2 mg Un [place] (IMODIUM 6-15 by mouth ity of A-D) 2 mg 14:39: as needed Doug as tablet 02 for MD [facility] bisoprolol 2020-12- No daily. Univ ers (ZEBETA) 5 0-20 10-20 ity of mg tablet 15:16: 00:00 [place] 30 :00 MD Ace [facility] mupirocin 2020- No Malignant APPLY U nivers (BACTROBAN) 2-16 10-20 neoplasm of TOPICALLY ity of 2% ointment 00:00: 00:00 unspecified TO [place] 00 :00 part of AFFECTED MD left AREA(S) Anderso bronchus or TWICE n lung, not DAILY. Cancer otherwise Center specified triamcinolo 2020- No Rash Apply Univ ers ne 12-31 10-20 topically ity of (KENALOG) 00:00: 00:00 to [place] 0.1% cream 00 :00 affected MD area(s) Anderso twice n daily. to Cancer itchy red Center areas of rash (avoid face, armpit, groin) clobetasol 2020- No Rash Apply Unive rs (TEMOVATE) 12-31 10-20 topically ity of 0.05% cream 00:00: 00:00 to [place] 00 :00 affected MD area(s) Anderso twice n daily. Cancer thin smear Center to areas of most severe itching,in flammation (avoid face, armpit, groin) mupirocin 2020- No Malignant Apply U nivers (BACTROBAN) 12-31 10-20 neoplasm of topically ity of 2% ointment 00:00: 00:00 unspecified to [place] 00 :00 part of affected MD left area(s) Anderso bronchus or twice n lung, not daily. Cancer otherwise Center specified magnesium 2020- No Hypomagnese 500mg Take 1 Univers oxide 500 1-13 10-20 tasha tablet ity of mg tablet 00:00: 00:00 (500 mg) Doug as 00 :00 by mouth MD twice Ace daily. n Cancer Center amLODIPine 2019-12 Yes twice Univer s (NORVASC) 5 1-19 daily. ity of mg tablet 00:00: [place] 00 MD [facility] spironolact 2019-12- No daily. Uni vers one 12-03 10-20 ity of (ALDACTONE) 00:00: 00:00 [place] 25 mg 00 :00 MD [facility] alendronate Yes once a Univ ers (FOSAMAX) 4-29 week. ity of 70 mg 00:00: [place] tablet 00 MD [facility] Immunizations Ordered Filled Immunization Date Status Comments Sour e Immunization Name Name Pfizer SARS-CoV-2 2021-02-25 Completed Univer sity of Vaccination (Purple 00:00:00 Etahn [facility]) [facility] Pfizer SARS-CoV-2 2021-02-03 Completed Univer sity of Vaccination (Purple 00:00:00 [place] MD Choi [facility]) [facility] Center Vital Signs Vital Name Observation Time Observation Value Comments Source WEIGHT 2020-09-20 10:48:12 70.4 kg WEIGHT 2020-09-06 08:50:00 71.1 kg WEIGHT 2020-06-27 13:44:00 71.2 kg HEIGHT 2020-06-07 00:00:00 162 cm WEIGHT 2020-06-07 00:00:00 72 kg Systolic blood 2022-05-15 19:18:00 152 mm[Hg] Univer sity of pressure [facility] Diastolic blood 2022-05-15 19:18:00 69 mm[Hg] Unive rsity of pressure [facility] Heart rate 2022-05-15 19:18:00 77 /min Universi ty [facility] Body temperature 2022-05-15 19:18:00 36.78 [place] Univ ersity Oxana [facility] Respiratory rate 2022-05-15 19:18:00 18 /min Univ ersity Oxana [facility] Body weight 2022-05-15 19:18:00 66.9 kg Universi ty [facility] BMI 2022-05-15 19:18:00 25.49 kg/m2 Universi ty [facility] Procedures Procedure Date / Time Performing Clinician Source Performed PETCT SUBSEQUENT TREATMENT 2022-05-15 17:09:55 Jean Paul Arzate [facility] STRATEGY [facility] COMPLETE BLOOD COUNT W/ 2022-05-15 15:14:00 Jean Paul Arzate [facility] DIFFERENTIAL [facility] COMPREHENSIVE METABOLIC 2022-05-15 15:14:00 Jean Paul Arzate [facility] PANEL [facility] Center MAGNESIUM LEVEL 2022-05-15 15:14:00 Jean Paul Arzate [facility] Results CBC 2022-05-15 15:14:00 Iván Arzateharjinder [facility] Center MANUAL DIFFERENTIAL 2022-05-15 15:14:00 Jean Paul Arzate [facility] GLUCOSE LEVEL 2022-05-15 15:14:00 Jean Paul Arzate [facility] BLOOD UREA NITROGEN 2022-05-15 15:14:00 Jean Paul Arzate [facility] ELECTROLYTE PANEL 2022-05-15 15:14:00 Iván Arzateharjinder [facility] SERUM CREATININE 2022-05-15 15:14:00 Iván Arzateharjinder [facility] .GLOMERULAR FILTRATION 2022-05-15 15:14:00 Jean Paul Arzate [facility] RATE [facility] CALCIUM LEVEL TOTAL 2022-05-15 15:14:00 Jean Paul Arzate [facility] Center ALBUMIN LEVEL 2022-05-15 15:14:00 Jean Paul Arzate [facility] Center ALKALINE PHOSPHATASE 2022-05-15 15:14:00 Jean Paul Arzate [facility] ALANINE AMINOTRANSFERASE 2022-05-15 15:14:00 [facility] ASPARTATE AMINOTRANSFERASE 2022-05-15 15:14:00 Jean Paul Arzate [facility] TOTAL PROTEIN 2022-05-15 15:14:00 Jean Paul Arzate o [facility] FRACTIONATED BILIRUBIN 2022-05-15 15:14:00 [facility] ELECTROL[facility]TE PANEL 2022-01-23 16:32:00 Jean Paul Arzate [facility] SERUM CREATININE 2022-01-23 16:32:00 Jean Paul Arzate [facility] .GLOMERULAR FILTRATION 2022-01-23 16:32:00 [facility] [place] R[facility] CALCIUM LEVEL TOTAL 2022-01-23 16:32:00 Jean Paul Arzate [facility] ALBUMIN LEVEL 2022-01-23 16:32:00 Jean Paul Arzate [facility] ALKALINE PHOSPHATASE 2022-01-23 16:32:00 Jean Paul Arzate y [facility] ALANINE AMINOTRANSFERASE 2022-01-23 16:32:00 [facility] ASPARTATE AMINOTRANSFERASE 2022-01-23 16:32:00 [facility] TOTAL PROTEIN 2022-01-23 16:32:00 Jean Paul Arzate [facility] FRACTIONATED BILIRUBIN 2022-01-23 16:32:00 [facility] COMPLETE BLOOD COUNT W/ 2022-01-23 16:32:00 Jean Paul Arzate [facility] DIFFERENTIAL [facility] COMPREHENSIVE METABOLIC 2022-01-23 16:32:00 Jean Paul Arzate [facility] PANEL [facility] MAGNESIUM LEVEL 2022-01-23 16:32:00 Jean Paul Arzate [facility] LACTATE DEHYDROGENASE 2022-01-23 16:32:00 Jean Paul Arzate sity [facility] Results CBC 2022-01-23 16:32:00 Jean Paul Arzate [facility] MANUAL DIFFERENTIAL 2022-01-23 16:32:00 [facility] GLU[facility]SE LEV[facility] 2022-01-23 16:32:00 Ne [facility] BLOOD UREA NITROGEN 2022-01-23 16:32:00 Jean Paul Arzate [facility] PETCT SUBSEQUENT TREATMENT 2022-01-23 16:03:30 Jean Paul Arzate [facility] PETCT SUBSEQUENT TREATMENT 2021-09-19 17:48:13 Tu, Carmencita [facility] COMPLETE BLOOD COUNT W/ 2021-09-19 16:25:00 Tu, [facility] DIFFERENTIAL [facility] COMPREHENSIVE METABOLIC 2021-09-19 16:25:00 Tu, [facility] PANEL [facility] MAGNESIUM LEVEL 2021-09-19 16:25:00 Tu, [facility] Results CBC 2021-09-19 16:25:00 Tu, [facility] MANUAL DIFFERENTIAL 2021-09-19 16:25:00 Tu, [facility] GLUCOSE LEVEL 2021-09-19 16:25:00 Tu, [facility] BLOOD UREA NITROGEN 2021-09-19 16:25:00 Tu, [facility] ELECTROLYTE PANEL 2021-09-19 16:25:00 Tu, [facility] SERUM CREATININE 2021-09-19 16:25:00 Tu, [facility] .GLOMERULAR FILTRATION 2021-09-19 16:25:00 Tu, [facility] RATE [facility] CALCIUM LEVEL TOTAL 2021-09-19 16:25:00 Tu, [facility] ALBUMIN LEVEL 2021-09-19 16:25:00 Tu, [facility] ALKALINE PHOSPHATASE 2021-09-19 16:25:00 Tu, [facility] ALANINE AMINOTRANSFERASE 2021-09-19 16:25:00 Tu, Carmencita [facility] ASPARTATE AMINOTRANSFERASE 2021-09-19 16:25:00 Tu, [facility] TOTAL PROTEIN 2021-09-19 16:25:00 Tu, Carmencita Dolan o f [facility] FRACTIONATED BILIRUBIN 2021-09-19 16:25:00 Tu, Carmencita [facility] POC GLUCOSE SCREEN 2021-09-19 16:21:00 Tu, Carmencita [facility] Plan of Care Planned Activity Planned Date Details Comments Source Future Scheduled 2022-06-04 COVID-19 Vaccination [facility] Test 12:17:41 (3 - Pfizer risk [facility] Cancer series) [code = Center COVID-19 Vaccination (3 - Pfizer risk series)] Encounters Start End Encounter Admission Attending Care Care Encounter Source Date/Time Date/Time Type Type Clinicians Facility Department ID 2020-07-05 Outpatient MDA MDA [id number] 11:29:30 Anderso n 2020-07-03 Outpatient SYSTEM, MDA MDA [id number] 11:53:52 PROVIDER Percy o n 2020-06-28 Outpatient MDA MDA [id number] 08:32:30 Anderso n 2020-06-26 Outpatient GARCIA, MDA MDA [id number] 16:03:21 LISA Anderso n 2020-06-23 Outpatient ROBSON, MDA MDA [id number] 13:17:57 LORETA Montelongoer so n 2020-06-13 Outpatient MDA MDA [id number] 10:17:31 Anderso n 2020-05-23 Outpatient SYSTEM, MDA MDA [id number] 15:10:39 PROVIDER Percy o n 2022-05-15 2022-05-15 Office Carmencita Salamanca 1.2.840.1 [id number] [facility] 15:00:00 15:23:06 Visit 26731.1.1 ity of 3.412.2.7 [place] .3.902925 MD .8 [facility]o n [facility] 2022-05-15 2022-05-15 Ancillary Jean Paul Arzate 1.2.840.1 [id number] Univers 10:00:00 12:30:00 Procedure [id number] it y of 3.412.2.7 [place] .3.913044 MD Johnston [facility] 2022-05-15 2022-05-15 Documentat Jitendra, 1.2.840.1 [id number] Univers 00:00:00 00:00:00 ion Mallory 20704.1.1 ity of 3.412.2.7 [place] .3.035637 MD Johnston [facility] 2022-05-15 2022-05-15 Travel 1.2.840.1 [id number] Univers 00:00:00 00:00:00 73135.1.1 350.1.13.41 ity of 3.412.2.7 2.2.7.3.698 [place] .3.299393 084.8 MD Johnston [facility] 2022-01-23 2022-01-23 Office Carmencita Salamanca 1.2.840.1 [id number] Univers 15:00:00 15:15:00 Visit 37564.1.1 ity of 3.412.2.7 [place] .3.317415 MD Johnston [facility] 2022-01-23 2022-01-23 Outpatient CHEIKH CARMENCITA [facility] MDA [id number] 10:44:37 10:44:37 Percy o n 2022-01-23 2022-01-23 Outpatient MDA MDA [id number] MD 10:32:23 10:34:33 Percy o n 2022-01-23 2022-01-23 Ancillary 1.2.840.1 [id number] Univers 08:00:00 10:30:00 Procedure 59834.1.1 it y of 3.412.2.7 [place] .3.386454 MD Johnston [facility] 2022-01-23 2022-01-23 Outpatient [facility] MDA [id number] 08:26:20 08:26:20 Percy o n 2022-01-23 2022-01-23 Travel 1.2.840.1 [id number] Univers 00:00:00 00:00:00 86616.1.1 350.1.13.41 ity of 3.412.2.7 2.2.7.3.698 [place] .3.439983 084.8 MD Carballo8 [facility] 2021-10-10 2021-10-10 Office Lakehsa Watts 1.2.840.1 [id number] [facility] 08:30:00 08:46:32 Visit Sofia Barraza 70758.1.1 ity of 3.412.2.7 [place] .3.430836 MD Carballo8 [facility] 2021-10-10 2021-10-10 Outpatient CELINA WATTS MDA MDA [id number] 08:09:46 08:46:32 LAKESHA [facility] 2021-10-10 2021-10-10 Travel 1.2.840.1 [id number] Univers 00:00:00 00:00:00 [id number] 350.1.13.41 ity of 3.412.2.7 2.2.7.3.698 [place] .3.657755 084.8 MD Johnston [facility] 2021-09-19 2021-09-19 Office Carmencita Salamanca 1.2.840.1 [id number] [facility] 15:15:00 15:30:00 Visit 03575.1.1 ity of 3.412.2.7 [place] .3.325069 MD Carballo8 [facility] 2021-09-19 2021-09-19 Outpatient CARMENCITA SALAMANCA [facility] [id number] 14:32:01 14:32:01 [facility] 2021-09-19 2021-09-19 Ancillary Carmencita Salamanca 1.2.840.1 [id number] Univers 11:00:00 13:30:00 Procedure [id number] it y of 3.412.2.7 [place] .3.935230 .[address] [facility] 2021-09-19 2021-09-19 Outpatient CARMENCITA KIM MDA MDA [id number] 10:31:30 10:31:30 Percy o max 2021-09-19 2021-09-19 Outpatient CARMENCITA KIM MDA MDA [id number] 10:31:15 10:31:15 Percy o max 2021-09-19 2021-09-19 Travel 1.2.840.1 [id number] [id number] [facility] [place] 00:00:00 00:00:00 [id number] ity of [id number] [place] .[id number] [facility] 2021-06-06 2021-06-06 Outpatient CARMENCITA KIM MDA MDA [id number] 09:36:19 09:36:19 Percy o max 2021-06-06 2021-06-06 Outpatient CELINA BARRAZA MDA MDA [id number] 08:58:18 09:27:46 SOFIA Greer o max 2021-06-06 2021-06-06 Outpatient JEAN PAUL CORMIER MDA MDA [id number] 08:38:45 08:53:53 Percy o max 2021-06-05 2021-06-05 Outpatient JEAN PAUL CORMIER MDA MDA [id number] 15:30:44 15:30:44 Percy o max 2020-09-20 2020-09-20 Outpatient CARMENCITA KIM MDA MDA [id number] 14:00:41 14:11:49 Percy o max 2020-09-20 2020-09-20 Outpatient CELINA BARRAZA MDA MDA [id number] 12:38:39 14:08:08 SOFIA Greer o max 2020-09-20 2020-09-20 Outpatient CELINA WATTS MDA MDA [id number] 10:41:33 11:05:43 LAKESHA Greer o max 2020-09-20 2020-09-20 Outpatient CARMENCITA KIM MDA MDA [id number] 11:04:03 11:04:03 Percy santana 2020-09-12 2020-09-12 Outpatient EL RONALD, MDA [facility] [id number] 07:05:00 13:50:00 SANDEE santana 2020-09-12 2020-09-12 Outpatient EL RONALD, MDA MDA [id number] 07:43:13 07:43:13 SANDEE Greer o max 2020-09-11 2020-09-11 Outpatient EL PRUDENCE, MDA MDA [id number] 10:43:27 23:59:00 EB Greer o max 2020-09-11 2020-09-11 Outpatient EL PRUDENCE, MDA MDA [id number] 12:15:33 12:15:33 EB Greer o max 2020-09-11 2020-09-11 Outpatient EL RONALD, MDA MDA [id number] 11:02:26 12:10:53 SANDEE santana 2020-09-07 2020-09-07 Outpatient EL ELLIE, MDA MDA [id number] 11:32:06 11:32:06 TOM Palacios so max 2020-09-06 2020-09-06 Outpatient EL ANTONOFF, MDA MDA [id number] 08:38:10 09:13:32 LAKESHA Greer o max 2020-09-05 2020-09-05 Outpatient EL ELLIE, MDA MDA [id number] MD 09:46:29 09:46:29 TOM Palacios so max 2020-06-30 2020-06-30 Outpatient EL MDA MDA [id number] 14:08:23 23:59:00 Percy o max 2020-06-30 2020-06-30 Outpatient EL MDA MDA [id number] MD 12:13:14 14:07:00 Percy o max 2020-06-30 2020-06-30 Outpatient EL ELLIE, MDA MDA [id number] MD 09:14:58 12:12:00 TOM Palacios so max 2020-06-30 2020-06-30 Outpatient EL ELLIE, MDA MDA [id number] MD 00:00:00 00:00:00 TOM Palacios so max 2020-06-28 2020-06-28 Outpatient EL ANTONOFF, MDA MDA [id number] MD 08:00:00 23:59:00 LAKESHA santana 2020-06-28 2020-06-28 Outpatient EL MAC, MDA MDA [id number] 00:00:00 00:00:00 LAKESHA santana 2020-06-27 2020-06-27 Outpatient CELINA TALBOT, MDA MDA [id number] 12:52:57 23:59:00 EPHRAIM santana 2020-06-27 2020-06-27 Outpatient CELINA MARTINEZ, MDA MDA [id number] 13:35:38 16:04:41 MARKY santana 2020-06-27 2020-06-27 Outpatient CELINA TALBOT, MDA MDA [id number] MD 13:36:09 14:34:39 EPHRAIM santana 2020-06-27 2020-06-27 Outpatient CELINA MARTINEZ, MDA MDA [id number] 12:55:03 13:17:30 MARKY santana 2020-06-27 2020-06-27 Outpatient CELINA TALBOT, MDA MDA [id number] 12:35:50 12:45:28 EPHRAIM santana 2020-06-27 2020-06-27 Outpatient CELINA WATTS, MDA MDA [id number] 00:00:00 00:00:00 LAKESHA santana 2020-06-19 2020-06-19 Outpatient ELLIE, MDA MDA [id number] MD 00:00:00 00:00:00 TOM santana 2020-06-16 2020-06-16 Outpatient CELINA TALBOT, MDA MDA [id number] MD 00:00:00 00:00:00 EPHRAIM santana 2020-06-16 2020-06-16 Outpatient EL DAHIANA, MDA MDA [id number] MD 00:00:00 00:00:00 EPHRAIM santana 2020-06-08 2020-06-08 Outpatient EL ELLIE, MDA MDA [id number] 06:48:42 23:59:00 TOM santana 2020-06-07 2020-06-07 Outpatient EL ELLIE, MDA MDA [id number] MD 12:50:20 12:50:20 TOM santana 2020-06-07 2020-06-07 Outpatient EL ELLIE, MDA MDA [id number] 12:15:53 12:15:53 TOM santana 2020-06-07 2020-06-07 Outpatient EL ELLIE, MDA MDA [id number] MD 09:47:40 09:56:03 TOM Palacios so max 2020-06-07 2020-06-07 Outpatient EL ANTONOFF, MDA MDA [id number] MD 09:53:41 09:53:41 LAKESHA santana 2020-06-07 2020-06-07 Outpatient EL ANTONOFF, MDA MDA [id number] MD 09:53:40 09:53:40 LAKESHA santana 2020-06-07 2020-06-07 Outpatient EL ANTONOFF, MDA MDA [id number] MD 09:53:36 09:53:36 LAKESHA santana 2020-06-07 2020-06-07 Outpatient EL ANTONOFF, MDA MDA [id number] MD 09:53:35 09:53:35 LAKESHA santana 2020-06-07 2020-06-07 Outpatient EL ANTONOFF, MDA MDA [id number] MD 09:53:35 09:53:35 LAKESHA santana 2020-06-07 2020-06-07 Outpatient EL ANTONOFF, MDA MDA [id number] MD 09:53:33 09:53:33 LAKESHA santana 2020-06-07 2020-06-07 Outpatient EL ANTONOFF, MDA MDA [id number] 09:53:32 09:53:32 LAKESHA santana 2020-06-07 2020-06-07 Outpatient EL ANTONOFF, MDA MDA [id number] 08:38:11 09:51:09 LAKESHA santana 2020-06-07 2020-06-07 Outpatient EL ANTONOFF, MDA MDA [id number] 08:31:44 08:31:51 LAKESHA santana 2020-06-03 2020-06-03 Outpatient EL ANTONOFF, MDA MDA [id number] 10:58:20 11:05:59 LAKESHA santana 2020-06-03 2020-06-03 Outpatient EL ANTONOFF, MDA MDA [id number] MD 00:00:00 00:00:00 LAKESHA santana 2020-06-03 2020-06-03 Outpatient EL ANTONOFF, MDA MDA [id number] 00:00:00 00:00:00 LAKESHA santana Results Test Description Test Time Test Comments Results Result Comments Source POC Glucose Screen 2021-09-19 16:32:54 Test Item Value Reference Range Interpretation Comme nts POC Glucose (test code = 16573-1) 116 mg/dL 70-99 H Capillary blood samples, e.g. obtained by zainab dc, may have inaccurate resu lts in patients with decreased peripheral blood flow. Method de scription: All results are pawan sured using Electrochemistr y test methodology. The glucose in the sample mixes with the reagen ts on the test strip. The reac tion produces an electric curren t. The amount of current produce d is proportional to the glucose concentration in the blood. PO Sample Type (test code = 9554) Venous Performing Lab (test code = DI [facility] [address]) [facility] [address] [place] [address]; Point of Care Lab Dir uri: Meron Alston MD Lab Interpretation (test code = Abnormal 88654-5) [facility] GlenVERONICA [id number] 14:15:00 RUN DATE: 10/12/18 [facility] - Lab PAGE 1 RUN TIME: 1415 Specimen Inquiry RUN USER: INTERFACE PATIENT: NATHAN MONTEJO LOC: MARS U #: [id number] AGE/SX: 62/F ROOM: [facility] RE10/09/18REG DR: Timoteo Kang MD : 53 BED: A DIS: 10/11/18 STATUS: DIS IN TLOC: SPEC #: [id number] RECD: 10/11/18 STATUS: RADHA CABALLERO #: [id number] KOURTNEY: 10/09/[address]: Timoteo Kang MD ENTERED: 10/11/18 SP TYPE: ARTERY, PL OTHR DR: Jessica Madsen MD, Gregory S MDORDERED: DECAL, SURG PATH LVL 3 CODES: [id number] - ARTERY, NOS [id number] - ARTERY, NOS DEGENERATION, N [id number] - ARTERY, NOS NEOPLASM, MALIG [id number] - LEFT POPLITEAL PLAQUE, NOS [place]IES [place]: [place] [address] [place] [address] [place] [id number] [facility] [address] [place] [address] [place] [address] [facility] [address] [place] [id number] PROCEDURES: DECAL (10/12/18841) SURG PATH LVL 3 (10/11/18) TISSUES: A. ARTERY, NOS - PLAQUE LT POPLITEAL ARTERY CLINICAL HISTORY SEVERE PERIPHERAL VASCULAR DISEASE CPT CODES CPT CODE(S): 81582 , 14598 , , , , , FINAL DIAGNOSIS Plaque, left popliteal artery, endarterectomy: ATHEROMATOUS PLAQUE WITH CALCIFIC DEGENERATION. NO ATYPIA. CONTINUED ON NEXT PAGE RUN DATE: 10/12/18 [facility] - Lab PAGE 2 RUN TIME: 141 Specimen Inquiry RUN USER: INTERFACE CARMELO Wong #: [id number] PATIENT: NATHAN MONTEJO #[id number] (Continued) FINAL DIAGNOSIS (Continued) NO MALIGNANCY. GROSS DESCRIPTION Plaque from the left popliteal. The specimen consists of several pieces of yellow-ma calcified plaque measuring in aggregate 2.5 x 1.3 x 0.6 cm. Sections submitted for brief decalcification as A1. /tc/pdb MICROSCOPIC DESCRIPTION Plaque from the left popliteal. Benign vascular tissue with dense stromal sclerosis and moderate to marked dystrophic calcification. No atypia. No malignancy. /cm Signed SIGNATURE ON FILE Marcelo Moulton 10/12/18 3686 END OFREPORT
[2022-06-25] MEDS ORDERED: BUPIVACAINE 0.5% PF 10 ML VIAL ONE (14:58)
[2022-06-25] MEDS ORDERED: LIDOCAINE 1% 20 ML MDV ONE (14:58)
--- NOTE | 2022-06-25 15:31 | RAD REPORT ---
EXAM DESCRIPTION: RAD - Knee Left 3 View - 06/25/2022 3:15 pm CLINICAL HISTORY: lacerationin patella and patella tendon region COMPARISON: No comparisons FINDINGS: No fracture of the distal femur, proximal tibia or proximal fibula seen. No acute bone fin ding in the structures. Fracture of the patella is not identifiable. No avulsion from the inferior ma rgin of the patella. Dense bandaging is in place obscuring visualization of the patella tendon. The p atella is in a slightly altered configuration. The possibility of a patella tendon injury cannot be e xcluded and needs correlation with exam findings. No joint effusion or evidence for hemarthrosis. Eloisa in film findings do not indicate the laceration extended into the joint space.Surgical clips are pres ent from prior vein harvesting. Arterial tree calcifications are present. No joint space narrowing. N o soft tissue abnormality. IMPRESSION: No acute bone finding identifiable. No plain film finding to indicate laceration extends intra-articular. The patella tendon is obscured. Partial-thickness or full-thickness tear of the tendon cannot be excl uded.
--- NOTE | 2022-06-25 16:46 | ER ---
Nurse's Notes [facility] Name: Jesusita Rodriguez Age: 66 yrs Sex: Female : 1955 Arrival Date: 06/25/2022 Time: 14:35 Bed 10 Private MD: Luis Marti Diagnosis: Laceration without foreign body, left knee Presentation: 06/25 14:41 Chief complaint: Left knee pain after mechanical fall from standing yesterday. Large hb laceration noted to left knee, bleeding controlled. Coronavirus screen: At this time, the client does not indicate any symptoms associated with coronavirus-19. Ebola Screen: No symptoms or risks identified at this time. Initial Sepsis Screen: Does the patient meet any 2 criteria? No. Patient's initial sepsis screen is negative. Does the patient have a suspected source of infection? No. Patient's initial sepsis screen is negative. Risk Assessment: Do you want to hurt yourself or someone else? Patient reports no desire to harm self or others. Onset of symptoms was June 04, 2022. 14:41 Method Of Arrival: Wheelchair hb 14:41 Acuity: ROSMERY 4 hb Triage Assessment: 14:42 General: Appears in no apparent distress. Behavior is calm, cooperative. Pain: Pain hb currently is 8 out of 10 on a pain scale. Neuro: Level of Consciousness is awake, alert, obeys commands, Oriented to person, place, time, situation. Musculoskeletal: Reports left knee pain. Historical: - Allergies: 14:42 Antihistamine; hb 14:42 antinflammatory; hb 14:42 Codeine; hb 14:42 HYDROCODONE; hb 14:42 Ibuprofen; hb 14:42 Morphine; hb 14:42 relafen; hb - Home Meds: 14:42 candasartine [Active]; Chlorthalidone Oral [Active]; hb - PMHx: 14:42 DVT; Hypertension; hb - Immunization history:: Adult Immunizations up to date. - Social history:: Smoking status: Patient denies any tobacco usage or history of. Screenin:00 Abuse screen: Denies threats or abuse. Denies injuries from another. Nutritional ld1 screening: No deficits noted. Tuberculosis screening: No symptoms or risk factors identified. Fall Risk None identified. Assessment: 15:00 General: Appears in no apparent distress. uncomfortable, Behavior is calm, cooperative, ld1 appropriate for age. Pain: Complains of pain in left knee Pain does not radiate. Pain currently is 8 out of 10 on a pain scale. Neuro: Level of Consciousness is awake, alert, obeys commands, Oriented to person, place, time, situation. Cardiovascular: Capillary refill < 3 seconds Patient's skin is warm and dry. Respiratory: Airway is patent Respiratory effort is even, unlabored, Respiratory pattern is regular, symmetrical. GI: Abdomen is flat, non-distended. : No signs and/or symptoms were reported regarding the genitourinary system. EENT: No signs and/or symptoms were reported regarding the EENT system. Derm: No signs and/or symptoms reported regarding the dermatologic system. Musculoskeletal: No signs and/or symptoms reported regarding the musculoskeletal system. 15:00 Injury Description: Laceration sustained to left knee. ld1 Vital Signs: 14:41 BP 149 / 58; Pulse 82; Resp 16; Temp 97.7; Pulse Ox 100% ; Weight 66.22 kg; Height 5 hb ft. 4 in. (162.56 cm); Pain 8/10; 15:00 BP 139 / 62; Pulse 81; Resp 18; Pulse Ox 100% ; Pain 8/10; ld1 14:41 Body Mass Index 25.06 (66.22 kg, 162.56 cm) hb ED Course: 14:35 Patient arrived in ED. mr 14:35 Luis Marti MD is Private Physician. mr 14:42 Triage completed. hb 14:42 Arm band placed on. hb 14:47 Clay Solares NP is PHCP. pm1 14:47 Rigoberto Choi MD is Attending Physician. pm1 14:58 Rubina Richard, LORENZA is Primary Nurse. ld1 15:00 Patient has correct armband on for positive identification. Placed in gown. Bed in low ld1 position. Call light in reach. Side rails up X2. technical assistance consultant on. Pulse ox on. NIBP on. Door closed. Noise minimized. Visitors limited. Warm blanket given. 15:00 Assist provider with laceration repair on left leg using sutures. Set up tray. ld1 Performed by Clay Solares TOLL TICKET CLERK Dressed with 4X4s, Patient tolerated well. 15:17 Knee Left 3 View XRAY In Process Unspecified. EDMS 16:58 Patient did not have IV access during this emergency room visit. ld1 Administered Medications: 16:06 Drug: Marcaine (bupivacaine) (0.5 %) 10 ml {Note: Administered by Clay Solares NP ld1 .} Volume: 10 ml; Route: Infiltration; 16:07 Follow up: Response: No adverse reaction ld1 16:07 Drug: Lidocaine (1 %) 5 ml {Note: Administered by Clay Solares NP.} Volume: 5 ml; ld1 Route: Infiltration; 16:07 Follow up: Response: No adverse reaction ld1 Medication: 16:58 VIS not applicable for this client. ld1 Outcome: 16:45 Discharge ordered by MD. pm1 16:57 Discharged to home via wheelchair, with family. ld1 16:57 Condition: stable 16:57 Discharge instructions given to patient, Instructed on discharge instructions, follow up and referral plans. medication usage, Demonstrated understanding of instructions, follow-up care, medications. 16:58 Patient left the ED. ld1 Signatures: Dispatcher [employer] [facility] Awilda Clark Clay Solares NP TOLL TICKET CLERK pm1 Mayra Gallegos, RN RN Rubina Richard, LORENZA RN ld1 Corrections: (The following items were deleted from the chart) 14:45 14:41 Chief complaint: Left knee pain after mechanical fall from standing yesterday. hb hb 14:45 14:41 Pulse Ox 100%; 66.22 kg; Height 5 ft. 4 in.; BMI: 25.0; Pain 8/10; hb hb 15:01 15:00 VIS not applicable for this client. ld1 ld1
--- NOTE | 2022-06-25 16:46 | EDPHYS ---
Physician Documentation [facility] Name: Jesusita Rodriguez Age: 66 yrs Sex: Female : 1955 Arrival Date: 06/25/2022 Time: 14:35 Bed 10 Private MD: Luis Marti ED Physician Rigoberto Choi HPI: 06/25 14:49 This 66 yrs old Female presents to ER via Wheelchair with complaints of Knee Injury. pm1 14:49 The patient presents with a laceration, irregular. The complaints affect the left knee. pm1 Context: The problem was sustained outdoors, resulted from the patient tripping, the patient can fully bear weight, the patient is able to ambulate. Onset: The symptoms/episode began/occurred yesterday, 22 hour(s) ago. Modifying factors: The symptoms are alleviated by nothing. Associated signs and symptoms: Pertinent negatives numbness, swelling, tingling. Treatment prior to arrival includes: yola wrap. Severity of symptoms: in the emergency department the symptoms are unchanged. The patient has not experienced similar symptoms in the past. The patient has not recently seen a physician. 66-year-old patient presents to the ER with complaints of left knee laceration. Patient was working in her garden and tripped resulting in fall onto one of her ceramic gnomes. Patient with laceration that occurred yesterday approximately 22 hours ago. Historical: - Allergies: 14:42 Antihistamine; hb 14:42 antinflammatory; hb 14:42 Codeine; hb 14:42 HYDROCODONE; hb 14:42 Ibuprofen; hb 14:42 Morphine; hb 14:42 relafen; hb - Home Meds: 14:42 candasartine [Active]; Chlorthalidone Oral [Active]; hb - PMHx: 14:42 DVT; Hypertension; hb - Immunization history:: Adult Immunizations up to date. - Social history:: Smoking status: Patient denies any tobacco usage or history of. ROS: 14:49 Constitutional: Negative for fever, chills, and weight loss, Cardiovascular: Negative pm1 for chest pain, palpitations, and edema, Respiratory: Negative for shortness of breath, cough, wheezing, and pleuritic chest pain, Abdomen/GI: Negative for abdominal pain, nausea, vomiting, diarrhea, and constipation, Back: Negative for injury and pain. 14:49 Neuro: Negative for headache, weakness, numbness, tingling, and seizure. 14:49 MS/extremity: Positive for laceration, of the left knee, Negative for decreased range of motion, deformity. 14:49 Skin: Positive for laceration(s), of the left knee. 14:49 All other systems are negative. Exam: 14:49 Constitutional: This is a well developed, well nourished patient who is awake, alert, pm1 and in no acute distress. Head/Face: Normocephalic, atraumatic. 14:49 Cardiovascular: Exam negative for acute changes, Rate: normal, Rhythm: regular, Pulses: no pulse deficits are appreciated. 14:49 Respiratory: Exam negative for acute changes, respiratory distress, shortness of breath. 14:49 Musculoskeletal/extremity: Extremities: grossly normal except: noted in the left knee: laceration. 14:49 Skin: Appearance: normal except for affected area, injury, laceration(s), that can be described as clean, no foreign body, irregular, without bleeding, 10 cm irregular shaped with skin tear approximately 2 cm at lateral aspect of wound. 14:49 Neuro: Exam negative for acute changes, Orientation: is normal, Mentation: is normal, Motor: is normal, moves all fours. Vital Signs: 14:41 BP 149 / 58; Pulse 82; Resp 16; Temp 97.7; Pulse Ox 100% ; Weight 66.22 kg; Height 5 hb ft. 4 in. (162.56 cm); Pain 8/10; 15:00 BP 139 / 62; Pulse 81; Resp 18; Pulse Ox 100% ; Pain 8/10; ld1 14:41 Body Mass Index 25.06 (66.22 kg, 162.56 cm) hb Laceration: 16:43 Wound Repair of 10cm ( 3.9in ) subcutaneous laceration to left knee. Irregularly pm1 shaped.. Distal neuro/vascular/tendon intact. Anesthesia: Local anesthetic administered with 10 mls of Lido/Marcaine. Wound prep: Extensive cleansing with betadine with hibiclenz by me, Wound irrigation with saline by ut, Wound explored extensively, Copious irrigation. Skin closed with 8 3-0 Prolene using simple sutures and sterile technique. Dressed with 4x4's, yola wrap. Patient tolerated well. MDM: 14:47 Patient medically screened. pm1 16:44 Data reviewed: vital signs. Data interpreted: Pulse oximetry: on room air is 100 %. pm1 Interpretation: normal. Counseling: I had a detailed discussion with the patient and/or guardian regarding: the historical points, exam findings, and any diagnostic results supporting the discharge/admit diagnosis, radiology results, the need for outpatient follow up, a family practitioner, to return to the emergency department if symptoms worsen or persist or if there are any questions or concerns that arise at home. 16:44 Special discussion: I discussed in detail with the patient the higher chance of wound pm1 infection based on his presenting history. 16:44 ED course: Wound closed loosely to allow drainage yet provide ability to reduce the pm1 size of scarring and to prevent infection. 06/25 14:48 Order name: Knee Left 3 View XRAY; Complete Time: 15:34 pm1 06/25 16:43 Order name: Dressing - Wound; Complete Time: 16:43 pm1 06/25 16:43 Order name: Gloves, Sterile; Complete Time: 16:43 pm1 06/25 16:43 Order name: Prolene, Sutures; Complete Time: 16:43 pm1 06/25 16:43 Order name: Setup Suture Tray; Complete Time: 16:43 pm1 Administered Medications: 16:06 Drug: Marcaine (bupivacaine) (0.5 %) 10 ml {Note: Administered by Clay Solares NP ld1 .} Volume: 10 ml; Route: Infiltration; 16:07 Follow up: Response: No adverse reaction ld1 16:07 Drug: Lidocaine (1 %) 5 ml {Note: Administered by Clay Solares NP.} Volume: 5 ml; ld1 Route: Infiltration; 16:07 Follow up: Response: No adverse reaction ld1 Disposition Summary: 06/25/22 16:45 Discharge Ordered Location: Home pm1 Problem: new pm1 Symptoms: have improved pm1 Condition: Stable pm1 Diagnosis - Laceration without foreign body, left knee pm1 Followup: pm1 - With: Emergency Department - When: As needed - Reason: Worsening of condition Followup: pm1 - With: Private Physician - When: 10 - 14 days - Reason: Recheck today's complaints, Continuance of care, Staple/Suture removal, Re-evaluation by your physician Discharge Instructions: - Discharge Summary Sheet pm1 - Laceration Care, Adult pm1 Forms: - Medication Reconciliation Form pm1 - Thank You Letter pm1 - Antibiotic Education pm1 - Prescription Opioid Use pm1 Prescriptions: - Cephalexin 500 mg Oral Capsule - take 1 capsule by ORAL route every 6 hours for 10 days; 40 capsule; Refills: 0, pm1 Product Selection Permitted - Bactrim DS 800-160 mg Oral Tablet - take 1 tablet by ORAL route every 12 hours for 10 days; 20 tablet; Refills: 0, pm1 Product Selection Permitted - Tylenol-Codeine #3 300 mg-30 mg Oral - take 1 tablet by ORAL route every 6 hours As needed; 20 tablet; Refills: 0, pm1 Product Selection Permitted Signatures: Dispatcher [employer] EDClay Benites NP MACHINE CLOTHING WORKER pm1 Mayra Gallegos, RN RN Rubina Richard RN RN ld1
[2022-06-25 17:08] VITALS: TEMP 97.7; O2SAT 100
[2022-06-25 17:10] VITALS: BP 139/62
== END 2022-06-25 16:58 | disposition home or self-care (01) ==
LOC: ER 14:32
PROC: 0JQP0ZZ Repair Left Lower Leg Subcutaneous Tissue and Fascia, Open Approach (ICD-10-PCS; principal; 2022-06-25)
DX: S81.012A Laceration without foreign body, left knee, initial encounter (principal); I10 Essential (primary) hypertension; Z86.718 Personal history of other venous thrombosis and embolism; Z88.5 Allergy status to narcotic agent; Z88.6 Allergy status to analgesic agent; Z88.8 Allergy status to other drugs, medicaments and biological substances
CPT/HCPCS: 99284

== ENCOUNTER 2022-08-13 15:26 | Inpatient (IN) | payer BC ==
--- OUTSIDE RECORDS SUMMARY | 2022-08-13 15:30 | XMS REPORT | Clinical Summary ---
:1955 Author Organization [facility] MD [facility] Center Address [address] [place] [address] Care Team Providers Name Role Phone Luis Marti MD Unavailable Lakesha Watts MD Primary Care Provider Medardo Johnson MD Unavailable Allergies Active Allergy Reactions [...] Overview: 06/27/20: EK, SR. Borderline prolon ged NH interval. Borderline rt axis deviation. nonspec ST depression, anterior leads 06/07/20: CT CHEST: IMPRESSION: 1. Enlarging lobulated 3.2 cm left upper lobe mass, suspicious for primary lung malignancy. 2. Nonspecific small pulmonary nodules, including a left upper lobe nodular opacity adjacent to the left major fissure that appears slightly more prominent, a new a small right upper lobe nodule, and ot her small stable pulmonary nodules. 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) 05/15/2022 Office Visit Thoracic Medicine Carmencita Salamanca [...] of Christi, Sofia, right bronchu s or MD lung, not other shore specified 10/10/2021 Travel 09/19/2021 Office Visit Thoracic Medicine Carmencita Salamanca MD Primary m ucinous adenocarcinoma of lung <Right side> (Primary Dx); Malignant neopl asm of unspecified part of unspecified bronchus or lung 09/19/2021 Ancillary Procedure Radiology Carmencita Salamanca MD Maligna nt neoplasm of unspecified par t of unspecified bro nchus or lung 09/19/2021 Travel after 08/13/2021 Immunizations Name Administration Dates Next Due Pfizer SARS-CoV-2 Vaccination (Purple Cap) 02/25/2021, 05/2021 Surgical History Surgery Date Site/Laterality Comments HIP ARTHROPLASTY 11/01/2008 Right hip SECTION, CLASSIC 12/01/1994 - 11/30/1995 SECTION, CLASSIC 12/01/1993 - 11/30/1994 CYST REMOVAL 12/01/1999 - gangliion cyst r emoved 11/30/2000 L&R feet TOTAL HIP ARTHROPLASTY 11/01/2008 Right CAROTID STENT 08/09/2009 FEMORAL ARTERY STENT 10/13/2009 WRIST SURGERY 12/01/2009 - Left 11/30/2010 WRIST SURGERY 04/13/2013 Right FEMORAL ARTERY STENT 10/09/2018 [facility] EBUS 09/12/2020 N/A Procedure : BRONCHOSCOPY DX/TX INTERVENTION PERPH WITH EB US PERIPHERAL LES LESION-RADIAL NH OBE; Surgeon: Lavon Fitzgerald MD; Location: [place] IN PULM PROC; Service: P ULMONARY [facility] EBUS GUIDED 09/12/2020 N/A Procedure : BRONCHOSCOPY SAMPL 3/> NODE WITH EBUS 3 OR M ORE STATION/STRUX NODES; Surgeon: Lavon Fitzgerald MD; Locat ion: MAIN PULM PROC; Servi ce: PULMONARY Medical History Medical History Date Comments Hypertension 2006 Hyperlipidemia 2017 Tooth disorder 2002 Degeneration Menopause 2001 Anemia 2015 Hemachromatosis Osteoporosis 2012 Arthritis 2012 Coronary arteriosclerosis Peripheral arterial occlusive disease rt femoral stent 2008 and left femoral stent 2017 Current use of anticoagulant xarelto Arteriosclerosis of [...] Body Mass Index 25.49 10/19/2020 9:30 AM [employer]GER Plan of Treatment Date Type Specialty Care Team Description 08/30/2022 Ancillary Procedure Radiology Saul Julien tyshawn, HAND STONE POLISHER [address] [facility] [address] [place] [address] (Wo rk) 08/30/2022 Lab Lab Saul, Patti, HAND STONE POLISHER [address] [facility] [address] [place], [place] [address] (Wo rk) 08/30/2022 Office Visit Thoracic Medicine Carmencita Salamanca MD [address] [place], [place] [address] (Wo rk) Health Maintenance Due Date Last Done Comments COVID-19 Vaccination (3 - Pfizer risk 03/25/2021 02/25/2021 , 02/03/2021 series) Medical Devices Implanted Type Area Reed Repairer Device Identifier Shelf Exp iration Model / [...] Primary mucino us Results for this AM [employer]GER adenocarcinoma of procedure are in lung <Right side> the result s section. TOTAL PROTEIN Routine 01/23/2022 10:32 Primary mucinous Result s for this AM [employer] adenocarcinoma of procedure are in lung <Right side> the result s section. ASPARTATE Routine 01/23/2022 10:32 Primary mucinous Results for this AMINOTRANSFERASE AM [employer] adenocarcinoma of proced ure are in lung <Right side> the result s section. ALANINE Routine 01/23/2022 10:32 Primary mucinous Results for this AMINOTRANSFERASE AM [employer] adenocarcinoma of proced ure are in lung <Right side> the result s section. ALKALINE PHOSPHATASE Routine 01/23/2022 10:32 Primary mucinous Results for this AM [employer]GER adenocarcinoma of procedure are in lung <Right side> the result s section. ALBUMIN LEVEL Routine 01/23/2022 10:32 Primary mucinous Result s for this AM [employer] adenocarcinoma of procedure are in lung <Right side> the result s section. CALCIUM LEVEL TOTAL Routine 01/23/2022 10:32 Primary mucinous Results for this AM [employer] adenocarcinoma of procedure are in lung <Right side> the result s section. .GLOMERULAR FILTRATION Routine 01/23/2022 10:32 Primary mucino us Results for this RATE AM [employer]GER adenocarcinoma of procedure are in lung <Right side> the result s section. SERUM CREATININE Routine 01/23/2022 10:32 Primary mucinous Res ults for this AM [employer] adenocarcinoma of procedure are in lung <Right side> the result s section. ELECTROLYTE PANEL Routine 01/23/2022 10:32 Primary mucinous Re sults for this AM [employer] adenocarcinoma of procedure are in lung <Right side> the result s section. BLOOD UREA NITROGEN Routine 01/23/2022 10:32 Primary mucinous Results for this AM [employer] adenocarcinoma of procedure are in lung <Right side> the result s section. GLUCOSE LEVEL Routine 01/23/2022 10:32 Primary mucinous Result s for this AM [employer] adenocarcinoma of procedure are in lung <Right side> the result s section. MANUAL DIFFERENTIAL Routine 01/23/2022 10:32 Primary mucinous Results for this AM [employer]GER adenocarcinoma of procedure are in lung <Right side> the result s section. Results CBC Routine 01/23/2022 10:32 Primary mucinous Results for this AM [employer] adenocarcinoma of procedure are in lung <Right side> the result s section. LACTATE DEHYDROGENASE Routine 01/23/2022 10:32 Primary mucinou s Results for this AM [employer] adenocarcinoma of procedure are in lung <Right side> the result s section. MAGNESIUM LEVEL Routine 01/23/2022 10:32 Primary mucinous Resu lts for this AM [employer]GER adenocarcinoma of procedure are in lung <Right side> the result s section. COMPREHENSIVE METABOLIC Routine 01/23/2022 10:32 Primary mucin ous PANEL AM [employer]GER adenocarcinoma of lung <Right side> COMPLETE BLOOD COUNT W/ Routine 01/23/2022 10:32 Primary mucin ous DIFFERENTIAL AM [employer] adenocarcinoma of lung <Right side> PETCT SUBSEQUENT Routine 01/23/2022 10:03 Primary mucinous Res ults for this TREATMENT STRATEGY AM [employer] adenocarcinoma of proc edure are in lung [...] are i n the results section. after 08/13/2021 Results PETCT Subsequent Treatment Strategy (05/15/2022 12:09 [...] athologist Signature Creatinine 0.53 0.51 - 0.95 [facility] mg/dL REGION Comment: [facility], [address], [place] [address] Specimen Anatomical Collection Method Collection Time Receive d Time (Source) Location / / Volume Laterality Blood 05/15/2022 10:14 05/15/2022 AM CDT 11:36 AM CDT Jean Paul Arzate NP LAB BLOOD ORDERABLES Performing Organization Address City/State/[place] [address] [phone] (ABNORMAL) .CBC (05/15/2022 10:14 AM CDT)Only the most recent of3 resultswithin the time period is included. athologist Signature WBC 7.5 4.0 - 11.0 [facility] K/uL REGION Comment: All components of the CBC perfo rmed at [facility], [address], [place] [address] RBC 3.28 (L) 4.00 - 5.50 M/uL [facility] Comment: All components of the CBC perfo rmed at [facility], [address] [facility], [place] [address] Hgb 11.6 (L) 12.0 - 16.0 gm/dL [facility] Comment: As part of CBC or as an individ ual orderable testing performed at [facility], [address] [facility], [place] [address] Hct 34.3 (L) 37.0 - 47.0 % [facility] REG ION Comment: As part of CBC or as an individ ual orderable testing performed at [facility], [address] [facility], [place] [address] MCV 105 (H) 82 - 98 fL [facility] Comment: All components of the CBC perfo rmed at [facility], [address] [facility], [place] [address] MCH 35.4 (H) 27.0 - 31.0 pg [facility] JOSEFINA BRUNNER Comment: All components of the CBC perfo rmed at [facility], [address] [facility], [place] [address] MCHC 33.8 31.0 - 36.0 gm/dL [facility] Comment: All components of the CBC perfo rmed at [facility], [address] [facility], [place] [address] RDW-SD 53.3 (H) 35.1 - 46.3 fL [facility] JOSEFINA BRUNNER Comment: All components of the CBC perfo rmed at [facility], [address], [place] [address] RDW-CV 13.9 12.0 - 15.5 % [facility] REG ION Comment: All components of the CBC perfo rmed at [facility], [address] [facility], [place] [address] Platelet count 327 140 - 440 K/uL [facility] ON REGION Comment: As part of CBC or as an individ ual orderable testing performed at [facility], [address] [facility], [place] [address] MPV 9.6 4.0 - 10.4 fL [facility] REG ION Comment: All components of the CBC perfo rmed at [facility], [address] [facility] [place] [address] Specimen Anatomical Collection Method Collection Time Receive d Time (Source) Location / / Volume Laterality Blood 05/15/2022 10:14 05/15/2022 AM CDT 11:34 AM CDT Jean Paul Arzate NP LAB BLOOD ORDERABLES Performing Organization Address City/State/[place] [phone] [facility] Glomerular Filtration Rate (05/15/2022 10:14 AM CDT)Only the most recent of3 resultswithin the time period is included. P athologist Signature eGFR-AA 114 >=60 [facility] mL/min/1.73 REGION sq. m Comment: Normal [...] 5 Kidney failure <15 Testing performed at [facility], [address] [facility] [place] [address] eGFR-RD 99 >=60 mL/min/1.73 sq. m [facility] Comment: Normal eGFR >= 60 mL/min/1.73 [...] 5 Kidney failure <15 Testing performed at [facility], [address] [place] [address] Specimen Anatomical Collection Method Collection Time Receive d Time (Source) Location / / Volume Laterality Blood 05/15/2022 10:14 05/15/2022 AM CDT 11:36 AM CDT Jean Paul Arzate NP LAB BLOOD ORDERABLES Performing Organization Address City/State/ZIP Code Phon e Number [facility] [place] [address] [phone] Fractionated Bilirubin (05/15/2022 10:14 AM CDT)Only the [...] concentrations above 28 g/L. Testing performed at [facility], [address] [facility], [place] [address] Bili Direct <0.2 <=0.3 mg/dL [facility] REG ION Comment: Indocyanine Green (ICG) may cause falsel y elevated bilirubin results. Total and direct bilirubin must not be measured from samples containing indocyanine green. Testing performed at [facility], [address], [place] [address] Bili Indirect See Note 0.0 - 0.9 mg/dL [facility] [place] [facility] Comment: Unable to calculate Indirect Bilirubin r esult due to some parameters are outside reportable range Testing performed at [facility], [address] [place] [address] Specimen Anatomical Collection Method Collection Time Receive d Time (Source) Location / / Volume Laterality Blood 05/15/2022 10:14 05/15/2022 AM CDT 11:36 AM CDT Jean Paul Arzate NP LAB BLOOD ORDERABLES Performing Organization Address City/State/[place] [phone] [address] (ABNORMAL) Differential (05/15/2022 10:14 AM CDT)Only the most recent of3 resultswithin the time period is included. athologist Signature Neutrophil % 69.3 (H) 42.0 - [facility] 66.0 % REGION Comment: As part of Differential perform ed at [facility], [address] [place] [address] Lymphocyte % 18.1 (L) 24.0 - 44.0 % [facility] REGION Comment: As part of Differential perform ed at [facility], [address] [place] [address] Monocyte % 11.0 (H) 2.0 - 7.0 % [facility] CHANCE ON Comment: As part of Differential perform ed at [facility], [address] [place] [address] Eosinophil % 0.9 (L) 1.0 - 4.0 % [facility] RE GION Comment: As part of Differential perform ed at [facility], [address] [place] [address] Basophil % 0.4 0.0 - 1.0 % [facility] CHANCE ON Comment: As part of Differential perform ed at [facility], [address] [place] [address] IGRE % 0.3 0.0 - 0.4 % [facility] REGIO N Comment: IGRE % count includes Metamyelocytes, My elocytes, and Promyelocytes. As part of Differential performed at [facility], [address] [place] [address] Neutrophil Abs 5.18 1.70 - 7.30 K/uL [facility] REGION Comment: As part of Differential perform ed at [facility], [address] [place] [address] Lymphocyte Abs 1.35 1.00 - 4.80 K/uL [facility] REGION Comment: As part of Differential perform ed at [facility], [address], [place] [address] Monocyte Abs 0.82 (H) 0.08 - 0.70 K/uL [facility] Comment: As part of Differential perform ed at [facility], [address] [place] [address] Eosinophil Abs 0.07 0.04 - 0.40 K/uL [facility] REGION Comment: As part of Differential perform ed at [facility], [address] [facility], [place] [address] Basophil Abs 0.03 0.00 - 0.10 K/uL [facility] Comment: As part of Differential perform ed at [facility], [address] [place] [address] IG Abs 0.02 0.00 - 0.04 K/uL [facility] REGION Comment: As part of Differential perform ed at [facility], [address] [facility], [place] [address] Specimen Anatomical Collection Method Collection Time Receive d Time (Source) Location / / Volume Laterality Blood 05/15/2022 10:14 05/15/2022 AM CDT 11:34 AM CDT Jean Paul Arzate NP LAB BLOOD ORDERABLES Performing Organization Address City/State/[place] [phone] [address] BUN (05/15/2022 10:14 AM CDT)Only the most recent of3 resultswithin the time period is included. P athologist Signature BUN 14 6 - 23 [facility] mg/dL REGION Comment: Testing performed at [facility], [address] [facility], [place] [address] Specimen Anatomical Collection Method Collection Time Receive d Time (Source) Location / / Volume Laterality Blood 05/15/2022 10:14 05/15/2022 AM CDT 11:36 AM CDT Jaimy Huey RIB[employer] CLEANER LAB BLOOD ORDERABLES Performing Organization Address City/[facility]/[place] [phone] ALT (05/15/2022 10:14 AM CDT)Only the most recent of3 resultswithin the time period is included. P athologist Signature ALT 11 <=33 U/L [facility] Comment: Testing performed at [facility], [address], [place] [address] Specimen Anatomical Collection Method Collection Time Receive d Time (Source) Location / / Volume Laterality Blood 05/15/2022 10:14 05/15/2022 AM CDT 11:36 AM CDT Jean Paul Arzate [employer] CLE[employer]ER LAB BLOOD ORDERABLES Performing Organization Address City/[facility]/[place] [phone] Aspartate Aminotransferase (05/15/2022 10:14 AM CDT)Only the most recent of3 resultswithin the time period is included. athologist Signature AST 20 <=32 U/L [facility] Comment: Testing performed at [facility], [address], [place] [address] Specimen Anatomical Collection Method Collection Time Receive d Time (Source) Location / / Volume Laterality Blood 05/15/2022 10:14 05/15/2022 AM CDT 11:36 AM CDT Jean Paul Arzate R[employer] LAB BLOOD ORDERABLES Performing Organization Address City/[facility]/[place] [phone] Total Protein (05/15/2022 10:14 AM CDT)Only the most recent of3 resultswithin the time period is included. P athologist Signature Total Protein 7.7 6.4 - 8.3 [facility] g/dL REGION Comment: Testing performed at [facility], [address], [place] [address] Specimen Anatomical Collection Method Collection Time Receive d Time (Source) Location / / Volume Laterality Blood 05/15/2022 10:14 05/15/2022 AM CDT 11:36 AM CDT Jean Paul Arzate R[employer] CLE[employer]ER LAB BLOOD ORDERABLES Performing Organization Address City/[facility]/[place] [phone] (ABNORMAL) Alkaline Phosphatase (05/15/2022 10:14 AM CDT)Only the most recent of 3 resultswithin the time period is included. athologist Signature Alk Phos 151 (H) 35 - 104 [facility] U/L REGION Comment: Testing performed at [facility], [address] [facility], [place] [address] Specimen Anatomical Collection Method Collection Time Receive d Time (Source) Location / / Volume Laterality Blood 05/15/2022 10:14 05/15/2022 AM CDT 11:36 AM CDT Jean Paul Arzate R[employer] CLE[employer]ER LAB BLOOD ORDERABLES Performing Organization Address [facility] [place] [phone] (ABNORMAL) Magnesium Level (05/15/2022 10:14 AM CDT)Only the most recent of3 resultswithin the time period is included. athologist [facility] Magnesium 1.4 (L) 1.6 - 2.6 [facility] mg/dL REGION Comment: Testing performed at [facility], [address] [facility], [place] [address] Specimen Anatomical Collection Method Collection Time Receive d Time (Source) Location / / Volume Laterality Blood 05/15/2022 10:14 05/15/2022 AM CDT 11:36 AM CDT Jean Paul Arzate [employer] LAB BLOOD ORDERABLES Performing Organization Address City/[facility]/[place] [phone] (ABNORMAL) Glucose Level (05/15/2022 10:14 AM CDT)Only the most recent of3 resultswithin the time period is included. P athologist Signature Glucose Level 106 (H) 70 - 99 [facility] mg/dL REGION Comment: Effective 06/26/16, the glucose reference intervals have been updated based on [place] [employer] guidelines (Standards of Medical Care in Diabetes 2016. Diabetes Care 2016; 39: S13-S22). Fasting blood glucose: Normal: 70-99 mg/dL Impaired fasting glucose (increased risk for diabetes or pre-diabetes): 100- 125 mg/dL Diabetes mellitus: >/=126 mg/dL Random blood glucose: Normal: 70-199 mg/dL Note: Random glucose >100 mg/dL is assoc iated with increased risk for diabetes Testing performed at [facility], [address] [place] [address] Specimen Anatomical Collection Method Collection Time Receive d Time (Source) Location / / Volume Laterality Blood 05/15/2022 10:14 05/15/2022 AM CDT 11:36 AM CDT Jean Paul Arzate NP LAB BLOOD ORDERABLES Performing Organization Address City/State/[place] [phone] Calcium Level (05/15/2022 10:14 AM CDT)Only the most recent of3 resultswithin the time period is included. athologist Signature Calcium Lvl 10.2 8.4 - 10.2 [facility] mg/dL REGION Comment: Testing performed at [facility], [address] [facility], [place] [address] Specimen Anatomical Collection Method Collection Time Receive d Time (Source) Location / / Volume Laterality Blood 05/15/2022 10:14 05/15/2022 AM CDT 11:36 AM CDT Jean Paul Arzate NP LAB BLOOD ORDERABLES Performing Organization Address City/[facility]/[place] [phone] Albumin Level (05/15/2022 10:14 AM CDT)Only the most recent of3 resultswithin the time period is included. P athologist Signature Albumin Lvl 4.4 3.5 - 5.2 [facility] gm/dL REGION Comment: Testing performed at [facility], [address] [facility], [place] [address] Specimen Anatomical Collection Method Collection Time Receive d Time (Source) Location / / Volume Laterality Blood 05/15/2022 10:14 05/15/2022 AM CDT 11:36 AM CDT Jean Paul Arzate NP LAB BLOOD ORDERABLES Performing Organization Address [facility]/[place] [phone] [address] (ABNORMAL) Electrolyte Panel (05/15/2022 10:14 AM CDT)Only the most recent of3 resultswithin the time period is included. athologist [facility] Sodium Lvl 139 136 - 145 [facility] mEq/L REGION Comment: Testing performed at [facility], [address] [facility], [place] [address] Potassium Lvl 3.4 (L) 3.5 - 5.1 mEq/L [facility] ON REGION Comment: Testing performed at [facility], [address] [facility], [place] [address] Chloride 97 (L) 98 - 107 mEq/L [facility] RE GION Comment: Testing performed at [facility], [address] [facility] [place] [address] CO2 30 (H) 22 - 29 mEq/L [facility] REG ION Comment: Testing performed at [facility], [address] [facility], [place] [address] Anion Gap 12 4 - 14 mEq/L [facility] CHANCE ON Comment: Testing performed at [facility], [address] [address] [facility], [place] [address] Specimen Anatomical Collection Method Collection Time Receive d Time (Source) Location / / Volume Laterality Blood 05/15/2022 10:14 05/15/2022 AM CDT 11:36 AM CDT Jean Paul Arzate NP LAB BLOOD ORDERABLES Performing Organization Address City/State/[place] [id number] [facility] (01/23/2022 10:32 AM [facility] WEDGER) [facility] [phone] [facility] [place] U/L Comment: Results greater than 1651 U/L may not be reliable due to matrix effect with extended dilution as it exceeds the optometry professor s recommended limit. Caution should be exercised when interpreting such fouzia ues and done in conjunction with clinica l context. [facility] [address] [facility], [place] [address] Specimen Anatomical Collection Method Collection Time Receive d Time (Source) Location / / Volume Laterality Blood 01/23/2022 10:32 01/23/2022 AM [facility]ER AND WEDGER 10:39 AM [employer] AND WEDGER Jean Paul Arzate NP LAB BLOOD ORDERABLES Performing Organization Address City/[facility]/ZIP [facility] [place] [address] [address] [facility] [place] [place] [address] [address] [facility] (ABNORMAL) POC Glucose Screen (09/19/2021 11:21 [...] Sample Type Venous POC [facility] Performing Lab [facility] POC [facility] Comment: Diagnostic [facility], [address] [place] [address]; Point of Care [employer] Mechanical Designer: Meron Alston MD Specimen Anatomical Collection Method Collection Time Receive d Time (Source) Location / / Volume Laterality Blood 09/19/2021 11:21 09/19/2021 AM CDT 11:21 AM CDT Carmencita Salamanca MD POCT ORDERABLES - DEVICE Performing Organization Address City/[facility]/ZIP [facility] Phon e Number POC [facility] after 08/13/2021 Insurance Payer Benefit Plan / Subscriber ID Effective Dates Phone Addre ss Type Group [employer] PPO POS [id number] 1995-Present [address] [place] [address] Guarantor Name Account Type Relation to Date of Phone Bill ing Patient Address Jesusita Rodriguez Personal/Family Self 1955 [address] (Home) [place] [address] Med Rodriguezma Personal/Family Self 1955 [address] [place] [address] Care Teams Director Digital Strategy Relationship Specialty Start Date End Date Luis Marti MD PCP - External Internal Medicine 05/23/[address] [place] [phone] Lakesha Watts MD PCP - General Cardiothoracic Surgery 05/23/[address] [place] [id number] Medardo Johnson 09/20/20 MD Kade
--- OUTSIDE RECORDS SUMMARY | 2022-08-13 15:31 | XMS REPORT | Continuity of Care Document ---
:1955 Author Organization [facility] t Address [address] [place] [address] Care Team Providers Name Role Phone Lakesha Watts MD Primary Care Physician SYSTEM, PROVIDER NOT IN Attending Clinician Unavailable LISA GARCIA Attending Clinician Unavailable LORETA CHANCE Attending Clinician Unavailable Mallory Ham Attending Clinician Unavailable Estela Salamanca MD Attending Clinician Jean Paul Olivia NP Attending Clinician Lakesha Watts MD Attending Clinician Sofia Barraza MD Attending Clinician ESTELA SALAMANCA Attending Clinician Unavailable SOFIA BARRAZA Attending Clinician Unavailable JEAN PAUL OLIVIA Attending Clinician Unavailable LAKESHA WATTS Attending Clinician Unavailable SANDEE CARDENAS Attending Clinician Unavailable EB FOSS Attending Clinician Unavailable TOM ARGUETA Attending Clinician Unavailable EPHRAIM TALBOT Attending Clinician Unavailable MARKY MARTINEZ Attending Clinician Unavailable SANDEE CARDENAS Admitting Clinician Unavailable Payers Payer Name Policy Type Policy Number Effective Date Expiration Date S [facility] [place] PPO POS [id number] 1995 00:00:00 Problems Condition Condition Condition Status Onset Resolution Last Treating Co mments Source Name Details Category Date Date Treatment Clinician Date Hyposmolal Hyposmolal Disease Active Last U nivers ity and/or ity and/or 12-13 Assessmen ity of hyponatrem hyponatrem 00:00: t & Plan: [place] ia ia 00 Formattin MD g of this Anderso note n might be Cancer different Center [...] [place] noma of [facility] Claustroph Disease Active 2019-12 U nivers obia obia 0-07 ity of 00:00: [place] 00 [facility] Other Other Disease Active Overview: Univer s specified specified 06-27 Formattin i ty of preoperati preoperati 00:00: g of this [place] ve ve 00 note examinatio examinatio might be Ace santana n different n from the Cancer original. Center 06/27/20: EK, SR. Borderlin e prolonged AK interval. Borderlin e rt axis deviation . [...] systemic metastase s Hypertensi Hypertensi Disease Active 2020-0 U nivers on on 06-07 ity of 00:00: 00 MD [facility] Stented Stented Disease Active Overview: Univ ers artery artery 06-07 Formattin ity of 00:00: g of this note might be Anderso different n from the Cancer original. Center Bilateral femoral Anticoagul Anticoagul Disease Active 2020-0 U nivers ant ant 06-07 ity of therapy therapy 00:00: MD [facility] Cerebrovas Cerebrovas Disease Active 2020-0 U nivers cular cular 06-07 ity of disease disease 00:00: MD [facility] Peripheral Peripheral Disease Active 2020-0 U nivers vascular vascular 06-07 ity of disease disease 00:00: MD [facility] Other Other Disease Active 2020-0 Univers dietary dietary 06-07 ity of vitamin vitamin 00:00: [place] B12 B12 00 deficiency deficiency An derso anemia anemia n Cancer Center Lung mass Lung mass Disease Active 2019- Uni vers 6-30 ity of 00:00: 00 MD [facility] 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 [place] Degenerat ion Menopause Menopause Disease Active Uni vers 12-01 ity of 00:00: [place] 00 MD [facility] Peripheral Peripheral Disease Active Overview : Univers [...] Anderso different n from the Cancer original. [place] xarelto Arterioscl Arterioscl Disease Active Overview : Univers erosis of erosis of Formattin i ty of carotid carotid g of this [place] artery artery note might be Anderso different n from the Cancer original. [place] carotid artery stent lacement 2008 Coronary Coronary Disease [facility] arterioscl arterioscl it y of erosis erosis [place] MD Ace santana [facility] Center Allergies, Adverse Reactions, Alerts Allergy Allergy Status Severity Reaction(s) Onset Inactive Treating Comm ents Source Name Type Date Date Clinician Tomas Bocanegra Active Other (See 2019-12 migraine Univers ine ty to Comments) 01-01 ity of Analogue adverse 00:00: [place] s reaction 00 MD samantha santana [facility] Center Antihist Drug Active GI Univers amines - Allergy Intolerance 06-07 it y of Alkylami 00:00: [place] ne 00 MD Ace santana [facility] etodolac DA Active SV 2017-12 [facility] 12-07 [facility] 00:00: [address] Etodolac Drug Active Diarrhea 2017-12 Extreme Unive rs Allergy 12-07 diarrhea ity of 00:00: [place] 00 MD Ace santana [facility] etodolac DA Active SV DIARRHEA 2017-12 [facility] 1-07 [place] 00:00: [address] ibuprofe DA Active SV 2017-12 [facility] n 0-20 [facility] 00:00: [address] nabumeto DA Active SV 2017-12 [facility] ne 0-20 [facility] 00:00: [address] antiflam DA Active SV 2017-12 [facility] matory 0-20 [place] medicati 00:00: [address] morphine DA Active SV nausea/vomit 2017-12 HC A ing 0-20 [place] 00:00: [address] codeine DA Active SV nausea/vomit 2017-12 [facility] ing 0-20 [facility] 00:00: [address] hydrocod DA Active SV nausea/vomit 2017-12 HC A one ing 0-20 [place] 00:00: [address] ibuprofe DA Active SV nausea/vomit 2017-12 HC A n ing 0-20 West 00:00: [address] nabumeto DA Active SV nausea/vomit 2017-12 HC A ne ing 0-20 West 00:00: [address] Codeine Drug Active GI 2017-12 Other Univers Allergy Intolerance 0-20 reaction( i ty of 00:00: s): nausea/vo MD robin santana [facility] Hydrocod Drug Active GI 2017-12 Other Univers one Allergy Intolerance 0-20 reaction( i ty of 00:00: s): nausea/vo MD robin santana [facility] Ibuprofe Drug Active GI 2017-12 Other Univers n Allergy Intolerance 0-20 reaction( i ty of 00:00: s): nausea/vo MD robin santana [facility] Morphine Drug Active GI 2017-12 Fuzzy Univers Allergy Intolerance 0-20 head, not i ty of 00:00: sure [place] where she MD Finesse Bello reaction( n s): Cancer nausea/vo [facility] Nabumeto Drug Active 2017-12 Other Univers ne Allergy 0-20 reaction( ity of 00:00: s): nausea/vo MD robin santana [facility] Center morphine DA Active SV 2017-12 [facility] 0-20 [facility] 00:00: [address] codeine DA Active SV 2017-12 [facility] 0-20 [facility] 00:00: [address] hydrocod DA Active SV 2017-12 [facility] one 0-20 [facility] 00:00: [address] ANTIHIST DA Active U 2002- [facility] AMINE 6- [place] 00:00: [address] No Known DA Active U [facility] Contrast 05-02 [place] Allergie 00:00: [address] No Known DA Active U [facility] Food 05-02 [place] Allergie 00:00: [address] No Known DA Active U [facility] Other 05-02 [place] Allergie 00:00: [address] Social History Social Habit Start Date Stop Date Quantity Comments Source Alcohol intake 2022-01-22 2022-01-22 Current drinker Unive rsity of 00:00:00 00:00:00 of alcohol [facility]erson ([facility] Cigarettes smoked 2020-06-07 2020-06-07 Univers ity of current (pack per 00:00:00 00:00:00 [place] Fortunato Raza ) - Reported Cancer Ce nter Cigarette 2020-06-07 2020-06-07 University of pack-years 00:00:00 00:00:00 Ethan sanderson [facility] Tobacco use and 2020-06-07 2020-06-07 Smokeless Universit y of exposure 00:00:00 00:00:00 tobacco non-user [facility] Tobacco Comment 2020-06-07 2020-06-07 No longer Universit y of 00:00:00 00:00:00 smokes. Ethan sanderson [facility] History of tobacco 1983-02-17 2011-06-19 Cigarette Smoker University of use 00:00:00 00:00:00 [place] MD Philip sanderson [facility] Sex [birth year] Universit y of 00:00:00 00:00:00 Ethan sanderson [facility] Smoking Status Start Date Stop Date Source Ex-smoker 2020-06-07 00:00:00 2020-06-07 00:00:00 Universi ty of [facility] Medications Ordered Filled Start Stop Current Ordering Indication Dosage Frequency Signature Comments Components Source Medication Medication Date Date Medication? Clinician (SIG) Name Name cholecalcif Yes 2000U Take 2,000 Univers ramírez, 6-15 Units by ity of vitamin D3, 14:39: mouth [place] 25 mcg 02 every MD (1,000 other day. Anderso unit) n capsule Cancer Center cyanocobala 2022-0 Yes 1000ug Take 1,000 Univers min 6-15 mcg by ity of (VITAMIN 14:39: mouth [place] B-12) 1000 02 every MD mcg tablet other day. [facility] rosuvastati Yes 20mg Take 20 mg Univers n (CRESTOR) 6-15 by mouth ity of 20 mg 14:39: daily. [place] tablet 02 [facility] loperamide Yes 2mg Take 2 mg Un [place] (IMODIUM 6-15 by mouth ity of A-D) 2 mg 14:39: as needed Doug as tablet 02 for MD diarrhea. [facility] cholecalcif Yes 2000U Take 2,000 Univers ramírez, 6-15 Units by ity of vitamin D3, 14:39: mouth [place] 25 mcg 02 every MD (1,000 other day. Anderso unit) n capsule [facility] cyanocobala Yes 1000ug Take 1,000 Univers min 6-15 mcg by ity of (VITAMIN 14:39: mouth [place] B-12) 1000 02 every MD mcg tablet other day. And [facility] rosuvastati Yes 20mg Take 20 mg Univers n (CRESTOR) 6-15 by mouth ity of 20 mg 14:39: daily. tablet 02 [facility] loperamide Yes 2mg Take 2 mg Un [place] (IMODIUM 6-15 by mouth ity of A-D) 2 mg 14:39: as needed Doug as tablet 02 for diarrhea. [facility] bisoprolol 2020-12- No daily. [facility] ers (ZEBETA) 5 0-20 10-20 ity of mg tablet 15:16: 00:00 [place] 30 :00 [facility] bisoprolol 2020-12- No daily. [facility] ers (ZEBETA) 5 0-20 10-20 ity of mg tablet 15:16: 00:00 [place] 30 :00 [facility] mupirocin 2020- No Malignant APPLY U nivers (BACTROBAN) 2-16 10-20 neoplasm of TOPICALLY ity of 2% ointment 00:00: 00:00 unspecified TO [place] 00 :00 part of AFFECTED MD left AREA(S) Anderso bronchus or TWICE n lung, not DAILY. Cancer otherwise Center specified mupirocin 2020- No Malignant APPLY U nivers [...] lung, not daily. Cancer otherwise Center specified triamcinolo 2020- No [...] Hypomagnese 500mg Take 1 Univers oxide 500 12-13 10-20 tasha tablet ity of mg tablet 00:00: 00:00 (500 mg) Doug as 00 :00 by mouth MD polo Bello daily. n Cancer Center magnesium 2020- No Hypomagnese 500mg Take 1 Univers oxide 500 12-13 10-20 tasha tablet ity of mg tablet 00:00: 00:00 (500 mg) Doug as 00 :00 by mouth MD polo Bello daily. n Cancer Center amLODIPine 2019-12 Yes twice Univer s (NORVASC) 5 1-19 daily. ity of mg tablet 00:00: [place] 00 MD Ace santana [facility] amLODIPine 2019-12 Yes twice Univer s (NORVASC) 5 1-19 daily. ity of mg tablet 00:00: [place] 00 MD Ace santana [facility] spironolact 2019-12- No daily. Uni vers one - 10-20 ity of (ALDACTONE) 00:00: 00:00 [place] 25 mg 00 :00 MD eli Bello [facility] spironolact 2019-12- No daily. Uni vers one 12-03 10-20 ity of (ALDACTONE) 00:00: 00:00 [place] 25 mg 00 :00 MD eli Bello [facility] alendronate 2020-0 Yes once a Univ ers (FOSAMAX) 4-29 week. ity of 70 mg 00:00: [place] tablet 00 MD Bello [facility] alendronate 2020-0 Yes once a Univ ers (FOSAMAX) 4-29 week. ity of 70 mg 00:00: [place] tablet 00 MD Bello [facility] Immunizations Ordered Filled Immunization Date Status Comments Sour e Immunization Name Name [employer] SARS-CoV-2 2021-02-25 Completed Univer sity of Vaccination (Purple 00:00[facility] Pfizer SARS-CoV-2 2021-02-25 Completed Univer sity of Vaccination (Purple 00:00:00 [facility] Pfizer SARS-CoV-2 2021-02-03 Completed Univer sity of Vaccination (Purple 00:00:00 [facility] Pfizer SARS-CoV-2 2021-02-03 Completed Univer sity of Vaccination (Purple 00:00:00 [facility] Vital Signs Vital Name Observation Time Observation Value Comments Source WEIGHT 2020-09-20 10:48:12 70.4 kg WEIGHT 2020-09-06 08:50:00 71.1 kg WEIGHT 2020-06-27 13:44:00 71.2 kg HEIGHT 2020-06-07 00:00:00 162 cm WEIGHT 2020-06-07 00:00:00 72 kg Systolic blood 2022-05-15 19:18:00 152 mm[Hg] Univer sity of pressure [facility] Diastolic blood 2022-05-15 19:18:00 69 mm[Hg] Unive rsity of pressure [place] MD [facility] Heart rate 2022-05-15 19:18:00 77 [facility] Body temperature 2022-05-15 19:18:00 36.78 Trinidad [facility] ersity [facility] Respiratory rate 2022-05-15 19:18:00 18 /min [facility] Body weight 2022-05-15 19:18:00 66.9 kg [facility] BMI 2022-05-15 19:18:00 25.49 kg/m2 [facility] [place] MD [facility] [place] Procedures Procedure Date / Time Performing Clinician Source Performed PETCT SUBSEQUENT TREATMENT 2022-05-15 17:09:55 Jean Paul [facility] STRATEGY [facility] COMPLETE BLOOD COUNT W/ 2022-05-15 15:14:00 [facility] COMPREHENSIVE METABOLIC 2022-05-15 15:14:00 Jean [facility] PANEL [facility] MAGNESIUM LEVEL 2022-05-15 15:14:00 Jean Paul Olivia [facility] Results CBC 2022-05-15 15:14:00 Jean Paul Olivia [facility] MANUAL DIFFERENTIAL 2022-05-15 15:14:00 Jean Paul Olivia [facility] [place] [facility] GLUCOSE LEVEL 2022-05-15 15:14:00 Jean Paul Olivia [facility] BLOOD UREA NITROGEN 2022-05-15 15:14:00 Jean Paul Olivia [facility] [place] [facility] ELECTROLYTE PANEL 2022-05-15 15:14:00 Jean Paul Olivia [facility] [place] [facility] SERUM CREATININE 2022-05-15 15:14:00 Iván Oliviaharjinder [facility] [place] [facility] .GLOMERULAR FILTRATION 2022-05-15 15:14:00 Jean Paul [facility] [place] RATE [facility] CALCIUM LEVEL TOTAL 2022-05-15 15:14:00 Jean Paul Olivia [facility] ALBUMIN LEVEL 2022-05-15 15:14:00 Jean Paul Olivia [facility] ALKALINE PHOSPHATASE 2022-05-15 15:14:00 Jean Paul Olivia y of [facility] ALANINE AMINOTRANSFERASE 2022-05-15 15:14:00 Jean Paul Olivia Uni versity of [facility] ASPARTATE AMINOTRANSFERASE 2022-05-15 15:14:00 Jean Paul Olivia [facility] TOTAL PROTEIN 2022-05-15 15:14:00 Jean Paul Olivia [facility] FRACTIONATED BILIRUBIN 2022-05-15 15:14:00 Jean Paul [facility] COMPLETE BLOOD COUNT W/ 2022-01-23 16:32:00 Jean Paul [facility] [place] DIFFERENTIAL [facility] COMPREHENSIVE METABOLIC 2022-01-23 16:32:00 Jean Paul Olivia [facility] PANEL [facility] MAGNESIUM LEVEL 2022-01-23 16:32:00 Jean Paul Olivia [facility] LACTATE DEHYDROGENASE 2022-01-23 16:32:00 Jean Paul Olivia [facility] Results CBC 2022-01-23 16:32:00 Jean Paul Olivia [facility] MANUAL DIFFERENTIAL 2022-01-23 16:32:00 Jean Paul Olivia [facility] [place] [facility] GLUCOSE LEVEL 2022-01-23 16:32:00 Jean Paul Olivia [facility] BLOOD UREA NITROGEN 2022-01-23 16:32:00 Jean Paul Olivia [facility] [place] [facility] ELECTROLYTE PANEL 2022-01-23 16:32:00 Jean Paul Olivia [facility] [place] [facility] SERUM CREATININE 2022-01-23 16:32:00 Jean Paul Olivia [facility] [place] [facility] .GLOMERULAR FILTRATION 2022-01-23 16:32:00 Jean Paul Olivia [facility] RATE [facility] CALCIUM LEVEL TOTAL 2022-01-23 16:32:00 Jean Paul Olivia [facility] [place] [facility] ALBUMIN LEVEL 2022-01-23 16:32:00 Jean Paul Olivia [facility] ALKALINE PHOSPHATASE 2022-01-23 16:32:[address] [facility] ALANINE AMINOTRANSFERASE 2022-01-23 16:32:00 [facility] ASPARTATE AMINOTRANSFERASE 2022-01-23 16:32:00 Jean Paul Olivia [facility] TOTAL PROTEIN 2022-01-23 16:32:00 Jean Paul Olivia [facility] FRACTIONATED BILIRUBIN 2022-01-23 16:32:00 Jean Paul Olivia [facility] PETCT SUBSEQUENT TREATMENT 2022-01-23 16:03:30 [facility]AT[facility] 2021-09-19 17:48:13 Tu, [facility] ASPARTATE AMINOTRANSFERASE 2021-09-19 16:25:00 Tu, Estela [facility] TOTAL PROTEIN 2021-09-19 16:25:00 Tu, [place] [facility] FRACTIONATED BILIRUBIN 2021-09-19 16:25:00 Tu, [facility] COMPLETE BLOOD COUNT W/ 2021-09-19 16:25:00 Tu, [facility] DIFFERENTIAL [facility] COMPREHENSIVE METABOLIC 2021-09-19 16:25:00 Tu, [facility] PANEL [facility] MAGNESIUM LEVEL 2021-09-19 16:25:00 Tu, [place] [facility] Results CBC 2021-09-19 16:25:00 Tu, [facility] MANUAL DIFFERENTIAL 2021-09-19 16:25:00 Tu, [facility] GLUCOSE LEVEL 2021-09-19 16:25:00 Tu, [place] [facility] BLOOD UREA NITROGEN 2021-09-19 16:25:00 Tu, [facility] ELECTROLYTE PANEL 2021-09-19 16:25:00 Tu, [facility] SERUM CREATININE 2021-09-19 16:25:00 Tu, [facility] .GLOMERULAR FILTRATION 2021-09-19 16:25:00 Tu, [facility] RATE [facility] CALCIUM LEVEL TOTAL 2021-09-19 16:25:00 Tu, [facility] ALBUMIN LEVEL 2021-09-19 16:25:00 Tu, [place] [facility] ALKALINE PHOSPHATASE 2021-09-19 16:25:00 Tu, [facility] ALANINE AMINOTRANSFERASE 2021-09-19 16:25:00 [facility] POC GLUCOSE SCREEN 2021-09-19 16:21:00 Estela Salamanca y of [facility] Plan of Care Planned Activity Planned Date Details Comments Source Future Scheduled 2022-08-13 COVID-19 [facility] Test 10:17:12 (3 - Pfizer risk MD Jimbo Cancer series) [code = Center COVID-19 Vaccination (3 - Pfizer risk series)] Future Scheduled 2022-06-04 COVID-19 Vaccination Uni versity of [place] Test 12:17:41 (3 - Pfizer risk MD Jimbo Cancer series) [code = Center COVID-19 Vaccination (3 - Pfizer risk series)] Encounters Start End Encounter Admission Attending Care Care Encounter Source Date/Time Date/Time Type Type Clinicians Facility Department ID 2020-07-05 Outpatient MDA MDA [id number] 11:29:30 Anderso max 2020-07-03 Outpatient SYSTEM, [facility] MDA [id number] 11:53:52 PROVIDER Percy santana 2020-06-28 Outpatient MDA MDA [id number] 08:32:30 Anderso n 2020-06-26 Outpatient GARCIA, MDA MDA [id number] 16:03:21 LISA santana 2020-06-23 Outpatient ROBSON, MDA MDA [id number] 13:17:57 LORETA santana 2020-06-13 Outpatient MDA MDA [id number] 10:17:31 Anderso n 2020-05-23 Outpatient SYSTEM, MDA MDA [id number] 15:10:39 PROVIDER Percy o max 2022-08-07 2022-08-07 Orders Jitendra, 1.2.840.1 [id number] Univers 00:00:00 00:00:00 Only Moushumi 12403.1.1 ity of 3.412.2.7 [place] .3.890869 .8 Andliz santana [facility] [place] 2022-05-15 2022-05-15 Office Estela Salamanca 1.2.840.1 [id number] Univers 15:00:00 15:23:06 Visit 03623.1.1 ity of 3.412.2.7 [place] .3.263750 MD Johnston [facility] 2022-05-15 2022-05-15 Office Estela Salamanca 1.2.840.1 [id number] Univers 15:00:00 15:23:06 Visit 66730.1.1 ity of 3.412.2.7 [place] .3.410078 MD Carballo8 [facility] 2022-05-15 2022-05-15 Ancillary Jean Paul Olivia 1.2.840.1 [id number] Univers 10:00:00 12:30:00 Procedure 33111.1.1 it y of 3.412.2.7 [place] .3.959430 MD Carballo8 [facility] 2022-05-15 2022-05-15 Ancillary Jean Paul Olivia 1.2.840.1 [id number] Univers 10:00:00 12:30:00 Procedure 22973.1.1 it y of 3.412.2.7 [place] .3.883371 MD Johnston [facility] 2022-05-15 2022-05-15 Documentat Jitendra, 1.2.840.1 [id number] Univers 00:00:00 00:00:00 ion Moushumi 19283.1.1 ity of 3.412.2.7 [place] .3.628903 MD Johnston [facility] 2022-05-15 2022-05-15 Travel 1.2.840.1 [id number] [id number] Univers 00:00:00 00:00:00 00827.1.1 350.1.13.41 ity of 3.412.2.7 2.2.7.3.698 [place] .3.553506 084.8 MD Johnston [facility] 2022-05-15 2022-05-15 Documentat Jitendra, 1.2.840.1 [id number] Univers 00:00:00 00:00:00 ion Moushumi 93790.1.1 ity of 3.412.2.7 [place] .3.571019 MD Johnston [facility] 2022-05-15 2022-05-15 Travel 1.2.840.1 1.2.762.151 [id number] Univers 00:00:00 00:00:00 23054.1.1 350.1.13.41 ity of 3.412.2.7 2.2.7.3.698 [place] .3.154939 084.8 .8 [facility] 2022-01-23 2022-01-23 Office EL Estela Salamanca 1.2.840.1 [id number] Univers 15:00:00 15:15:00 Visit 98473.1.1 ity of 3.412.2.7 [place] .3.422032 MD Carballo8 [facility] 2022-01-23 2022-01-23 Office Estela Salamanca 1.2.840.1 [id number] Univers 15:00:00 15:15:00 Visit 83151.1.1 ity of 3.412.2.7 [place] .3.104383 MD Carballo8 [facility] 2022-01-23 2022-01-23 Outpatient EL MDA MDA [id number] MD 10:32:23 10:34:33 [facility] 2022-01-23 2022-01-23 Ancillary EL 1.2.840.1 [id number] Univers 08:00:00 10:30:00 Procedure 37457.1.1 it y of 3.412.2.7 [place] .3.846350 MD Johnston [facility] 2022-01-23 2022-01-23 Ancillary 1.2.840.1 [id number] Univers 08:00:00 10:30:00 Procedure 63055.1.1 it y of 3.412.2.7 [place] .3.729326 MD Johnston [facility] 2022-01-23 2022-01-23 Travel 1.2.840.1 1.2.869.696 [id number] Univers 00:00:00 00:00:00 44530.1.1 350.1.13.41 ity of 3.412.2.7 2.2.7.3.698 [place] .3.781867 084.8 MD Johnston [facility] 2022-01-23 2022-01-23 Travel 1.2.840.1 1.2.689.082 [id number] Univers 00:00:00 00:00:00 92023.1.1 350.1.13.41 ity of 3.412.2.7 2.2.7.3.698 [place] .3.645206 084.8 MD Carballo8 [facility] 2021-10-10 2021-10-10 Office Lakesha Thomas 1.2.840.1 [id number] Univers 08:30:00 08:46:32 Visit Sofia Barraza 35938.1.1 ity of 3.412.2.7 [place] .3.606110 MD Johnston [facility] 2021-10-10 2021-10-10 Office Lakesha Watts 1.2.840.1 [id number] Univers 08:30:00 08:46:32 Visit Sofia Barraza 83471.1.1 ity of 3.412.2.7 [place] .3.760717 MD Johnston [facility] 2021-10-10 2021-10-10 Travel 1.2.840.1 1.2.182.173 [id number] Univers 00:00:00 00:00:00 88677.1.1 350.1.13.41 ity of 3.412.2.7 [place]7.3.698 [place] .3.562301 084.8 MD Carballo8 [facility] 2021-10-10 2021-10-10 Travel 1.2.840.1 1.2.404.465 [id number] Univers 00:00:00 00:00:00 46318.1.1 350.1.13.41 ity of 3.412.2.7 [place]3.698 [place]3.895215 084.8 .[place] [facility] 2021-09-19 2021-09-19 Office Estela Salamanca 1.2.840.1 [id number] Univers 15:15:00 15:30:00 Visit 04233.1.1 ity of 3.412.2.7 [place] .3.796142 MD Carballo8 [facility] 2021-09-19 2021-09-19 Office Estela Salamanca 1.2.840.1 [id number] Univers 15:15:00 15:30:00 Visit 99717.1.1 ity of 3.412.2.7 [place] .3.345217 MD Carballo8 [facility] 2021-09-19 2021-09-19 Ancillary Estela Salamanca 1.2.840.1 [id number] Univers 11:00:00 13:30:00 Procedure 04155.1.1 it y of 3.412.2.7 [place] .3.247795 MD Johnston [facility] 2021-09-19 2021-09-19 Ancillary Estela Salamanca 1.2.840.1 [id number] Univers 11:00:00 13:30:00 Procedure 38896.1.1 it y of 3.412.2.7 [place] .3.745611 MD Carballo8 [facility] 2021-09-19 2021-09-[address] [facility] [id number] 10:31:15 10:31:15 [facility] 2021-09-19 2021-09-19 Travel 1.2.840.1 1.2.407.401 [id number] Univers 00:00:00 00:00:00 77629.1.1 350.1.13.41 ity of 3.412.2.7 2.[place]7.3.698 [place] .3.158836 084.8 MD Johnston [facility] 2021-09-19 2021-09-19 Travel 1.2.840.1 1.2.810.252 [id number] Univers 00:00:00 00:00:00 36290.1.1 350.1.13.41 ity of 3.412.2.7 2.[place]7.3.698 [place] .3.331331 084.8 MD .8 Ace santana [facility] 2021-06-06 2021-06-06 Outpatient ESTELA KIM MDA MDA [id number] 09:36:19 09:36:19 Percy o max 2021-06-06 2021-06-06 Outpatient CELINA BARRAZA MDA MDA [id number] 08:58:18 09:27:46 SOFIA Greer o max 2021-06-06 2021-06-06 Outpatient JEAN PAUL CORMIER MDA MDA [id number] 08:38:45 08:53:53 Percy santana 2021-06-05 2021-06-05 Outpatient JEAN PAUL CORMIER MDA MDA [id number] 15:30:44 15:30:44 Percy o max 2020-09-20 2020-09-20 Outpatient ESTELA KIM MDA MDA [id number] 14:00:41 14:11:49 Percy o max 2020-09-20 2020-09-20 Outpatient CELINA BARRAZA MDA MDA [id number] 12:38:39 14:08:08 SOFIA Greer o max 2020-09-20 2020-09-20 Outpatient CELINA WATTS MDA MDA [id number] 10:41:33 11:05:43 LAKESHA Greer o max 2020-09-20 2020-09-20 Outpatient ESTELA KIM MDA MDA [id number] 11:04:03 11:04:03 Percy o max 2020-09-12 2020-09-12 Outpatient CELINA CARDENAS, MDA Pul Med [id number] 07:05:00 13:50:00 SANDEE santana 2020-09-12 2020-09-12 Outpatient CELINA CARDENAS, MDA MDA [id number] 07:43:13 07:43:13 SANDEE santana 2020-09-11 2020-09-11 Outpatient CELINA FOSS MDA MDA [id number] 10:43:27 23:59:00 EB santana 2020-09-11 2020-09-11 Outpatient EL PRUDENCE, MDA MDA [id number] 12:15:33 12:15:33 EB santana 2020-09-11 2020-09-11 Outpatient EL RONALD, MDA MDA [id number] 11:02:26 12:10:53 SANDEE santana 2020-09-07 2020-09-07 Outpatient EL ELLIE, MDA MDA [id number] 11:32:06 11:32:06 TOM Palacios so max 2020-09-06 2020-09-06 Outpatient EL ANTONOFF, MDA MDA [id number] 08:38:10 09:13:32 LAKESHA santana 2020-09-05 2020-09-05 Outpatient EL ELLIE, MDA MDA [id number] MD 09:46:29 09:46:29 TOM Palacios so max 2020-06-30 2020-06-30 Outpatient EL MDA MDA [id number] 14:08:23 23:59:00 Percy santana 2020-06-30 2020-06-30 Outpatient EL MDA MDA [id number] 12:13:14 14:07:00 Percy santana 2020-06-30 2020-06-30 Outpatient EL ELLIE, MDA MDA [id number] MD 09:14:58 12:12:00 TOM santana 2020-06-30 2020-06-30 Outpatient EL ELLIE, MDA MDA [id number] MD 00:00:00 00:00:00 TOM Palacios so max 2020-06-28 2020-06-28 Outpatient EL ANTONOFF, MDA MDA [id number] 08:00:00 23:59:00 LAKESHA Greer o max 2020-06-28 2020-06-28 Outpatient EL ANTONOFF, MDA MDA [id number] 00:00:00 00:00:00 LAKESHA santana 2020-06-27 2020-06-27 Outpatient EL DAHIANA, MDA MDA [id number] MD 12:52:57 23:59:00 EPHRAIM santana 2020-06-27 2020-06-27 Outpatient EL MARTINEZ, MDA MDA [id number] 13:35:38 16:04:41 MARKY Greer o max 2020-06-27 2020-06-27 Outpatient EL DAHIANA, MDA MDA [id number] 13:36:09 14:34:39 EPHRAIM santana 2020-06-27 2020-06-27 Outpatient EL JUAN, MDA MDA [id number] 12:55:03 13:17:30 MARKY santana 2020-06-27 2020-06-27 Outpatient EL DAHIANA, MDA MDA [id number] 12:35:50 12:45:28 EPHRAIM santana 2020-06-27 2020-06-27 Outpatient EL ANTONOFF, MDA MDA [id number] 00:00:00 00:00:00 LAKESHA santana 2020-06-19 2020-06-19 Outpatient ELLIE, MDA MDA [id number] MD 00:00:00 00:00:00 TOM santana 2020-06-16 2020-06-16 Outpatient EL DAHIANA, MDA MDA [id number] MD 00:00:00 00:00:00 EPHRAIM santana 2020-06-16 2020-06-16 Outpatient EL DAHIANA, MDA MDA [id number] MD 00:00:00 00:00:00 EPHRAIM santana 2020-06-08 2020-06-08 Outpatient EL ELLIE, MDA MDA [id number] 06:48:42 23:59:00 TOM santana 2020-06-07 2020-06-07 Outpatient EL ELLIE, MDA MDA [id number] 12:50:20 12:50:20 TOM santana 2020-06-07 2020-06-07 Outpatient EL ELLIE, MDA MDA [id number] MD 12:15:53 12:15:53 TOM santana 2020-06-07 2020-06-07 Outpatient EL ELLIE, MDA MDA [id number] MD 09:47:40 09:56:03 TOM santana 2020-06-07 2020-06-07 Outpatient EL ANTONOFF, MDA MDA [id number] 09:53:41 09:53:41 LAKESHA santana 2020-06-07 2020-06-07 Outpatient EL ANTONOFF, MDA MDA [id number] 09:53:40 09:53:40 LAKESHA santana 2020-06-07 2020-06-07 Outpatient EL ANTONOFF, MDA MDA [id number] 09:53:36 09:53:36 LAKESHA Montelongoers o n 2020-06-07 2020-06-07 Outpatient EL ANTONOFF, MDA MDA [id number] 09:53:35 09:53:35 LAKESHA Montelongoers o n 2020-06-07 2020-06-07 Outpatient EL ANTONOFF, MDA MDA [id number] 09:53:35 09:53:35 LAKESHA Montelongoers o n 2020-06-07 2020-06-07 Outpatient EL ANTONOFF, MDA MDA [id number] 09:53:33 09:53:33 LAKESHA Percy o n 2020-06-07 2020-06-07 Outpatient EL ANTONOFF, MDA MDA [id number] 09:53:32 09:53:32 LAKESHA Greer o n 2020-06-07 2020-06-07 Outpatient EL ANTONOFF, MDA MDA [id number] 08:38:11 09:51:09 LAKESHA Montelongoers o n 2020-06-07 2020-06-07 Outpatient EL ANTONOFF, MDA MDA [id number] 08:31:44 08:31:51 LAKESHA Montelongoers o n 2020-06-03 2020-06-03 Outpatient EL ANTONOFF, MDA MDA [id number] 10:58:20 11:05:59 LAKESHA Greer o max 2020-06-03 2020-06-03 Outpatient EL ANTONOFF, MDA MDA [id number] 00:00:00 00:00:00 LAKESHA santana 2020-06-03 2020-06-03 Outpatient EL ANTONOFF, MDA MDA [id number] 00:00:00 00:00:00 LAKESHA santana Results Test Description Test Time Test Comments Results Result Comments Source POC Glucose Screen 2021-09-19 16:32:54 Test Item Value Reference Range Interpretation Comme nts POC Glucose (test code = 93621-4) 116 mg/dL 70-99 H Capillary blood samples, e.g. obtained by [place], may have inaccurate resu lts in patients [...] Venous Performing Lab (test code = DI [facility] [address]) of [place] -[facility], [address] [place] [address]; Point of Care Lab Dir uri: Meron Alston MD Lab Interpretation (test code = Abnormal 15813-3) [facility] Glucose [id number] 16:32:54 Test Item Value Reference Range Interpretation Comments POC Glucose (test 116 mg/dL 70-99 H Capillary blood code = 32416-3) samples, e.g . obtained by fingerstick, may have inaccurate results in patients wit h decreased perip heral blood flow. Met hod description: Al bernie results are apwan sured using Electroch emistry test methodolog y. The glucose in the sample mixes with the reagents on the test str ip. The reaction produc es an electric curren t. The amount of curre nt produced is proportional to the glucose concent ration in the blood. PO Sample Type (test Venous code = 9554) Performing Lab (test DI [facility] [place] code = 05010) [facility], [address] [place], [place] [address]; Point of Care L ab Director: Meron lewis MD Lab Interpretation Abnormal (test code = 78687-5) [facility],[id number] 14:15:00 RUN DATE: 10/12/18 [facility] - Lab PAGE 1 RUN TIME: 1415 Specimen Inquiry RUN USER: INTERFACE PATIENT: NATHAN MONTEJO LOC: MARS U #: [id number] AGE/SX: 62/F ROOM: [facility] RE10/09/18REG DR: Timoteo Kang MD : 53 BED: A DIS: 10/11/18 STATUS: DIS IN TLOC: SPEC #: [id number] RECD: 10/11/18 STATUS: RADHA REQ #: [id number] KOURTNEY: 10/09/[address] [facility] DR: Timoteo Kang MD ENTERED: 10/11/18 SP TYPE: ARTERY, PL OTHR DR: Jessica Madsen MD, Gregory S MDORDERED: DECAL, SURG PATH LVL 3 CODES: T70377 - ARTERY, NOS [id number] - ARTERY, NOS DEGENERATION, N S77013 U75754 - ARTERY, NOSNEOPLASM, MALIG [id number] [id number] - LEFT POPLITEAL PLAQUE, NOS COPIES [place]: [place] [address] [place] [address] [place] [id number] [facility] [address] [place], [place] [phone] [place] [address] [facility] [address] [place], [place] [id number] PROCEDURES:DECAL (10/12/18) SURG PATH LVL 3 (10/11/18) TISSUES: A. ARTERY, NOS - PLAQUE LT POPLITEAL ARTERY CLINICAL HISTORY SEVERE PERIPHERAL VASCULAR DISEASE CPT CODES CPT CODE(S): 91810 , 45816 , , , , , FINAL DIAGNOSIS Plaque, left popliteal artery, endarterectomy: ATHEROMATOUS PLAQUE WITH CALCIFIC DEGENERATION. NO ATYPIA. CONTINUED ON NEXT PAGE RUN DATE: 10/12/18 [facility] PAGE 2 RUN TIME: 1415 Specimen Inquiry RUN USER: INTERFACE SPEC #: [id number] PATIENT: NATHAN MONTEJO #[id number] (Continued ) FINAL DIAGNOSIS (Continued) NO MALIGNANCY. GROSS DESCRIPTION [...] Signed SIGNATURE ON FILE Marcelo Moulton 10/12/18 1415 - END OF REPORT
[2022-08-13 15:55] LABS: Hematocrit 38.3 % (36.0-45.0); Lymphocytes % 10.8 % (15.3-44.8); MCV 106.8 fL (80-100); MPV 7.4 fL (7.6-11.3); RBC Red Blood Cell Count 3.59 M/uL (3.86-4.86)
[2022-08-13 16:11] LABS: Albumin 3.3 g/dL (3.4-5.0); Bilirubin Total 1.2 mg/dL (0.2-1.0); Potassium 3.4 mmol/L (3.5-5.1); Protein, Total 7.6 g/dL (6.4-8.2)
--- NOTE | 2022-08-13 16:28 | RAD REPORT ---
EXAM DESCRIPTION: RAD - Femur Left - 08/13/2022 4:10 pm CLINICAL HISTORY: DEFORMITY Fall, pain COMPARISON: No comparisons FINDINGS: Intratrochanteric fracture is seen of the proximal left femur. Mild varus angulation.
--- NOTE | 2022-08-13 16:28 | RAD REPORT ---
EXAM DESCRIPTION: RAD - Knee Right 3 View - 08/13/2022 4:10 pm CLINICAL HISTORY: DEFORMITY Pain and swelling COMPARISON: Femur Left dated 08/13/2022 FINDINGS: Diffuse osteopenia is noted. Soft tissue swelling is seen anterior to the left knee. Heavy atherosclerosis. No fracture or dislocation seen.
--- NOTE | 2022-08-13 18:00 | ER ---
Nurse's Notes [facility] Name: Jesusita Rodriguez Age: 66 yrs Sex: Female : 1955 Arrival Date: 08/13/2022 Time: 15:27 Bed 27 Private MD: Diagnosis: Intertrochanteric fracture of femur Presentation: 08/13 15:29 Chief complaint: Patient states: Pt fell 24 hours ago outside on gravel and grass. jh5 OBVIOUS DEFORMITY to left femur. Coronavirus screen: Vaccine status: Patient reports receiving the 2nd dose of the covid vaccine. Client denies travel out of the [place] in the last 14 days. Ebola Screen: Patient negative for fever greater than or equal to 101.5 degrees Fahrenheit, and additional compatible Ebola Virus Disease symptoms Patient denies exposure to infectious person. Patient denies travel to an Ebola-affected area in the 21 days before illness onset. Initial Sepsis Screen: Does the patient meet any 2 criteria? No. Patient's initial sepsis screen is negative. Does the patient have a suspected source of infection? No. Patient's initial sepsis screen is negative. Risk Assessment: Do you want to hurt yourself or someone else? Patient reports no desire to harm self or others. 15:29 Method Of Arrival: EMS: [facility] 15:29 Acuity: ROSMERY 2 5 15:36 Onset of symptoms was August 12, 2022. 5 Triage Assessment: 15:32 General: Appears uncomfortable, well groomed, Behavior is calm, cooperative, jh5 appropriate for age. Pain: Complains of pain in left leg. Historical: - Allergies: 15:32 Antihistamine; jh5 15:32 antinflammatory; jh5 15:32 Codeine; jh5 15:32 HYDROCODONE; jh5 15:32 Ibuprofen; jh5 15:32 Morphine; jh5 15:32 relafen; 5 - PMHx: 15:32 DVT; Hypertension; 5 - Immunization history:: Adult Immunizations up to date. - Social history:: Smoking status: Patient reports the use of cigarette tobacco products, denies chronic smoking, but will smoke occasionally. Screenin:33 Abuse screen: Denies threats or abuse. Denies injuries from another. Nutritional 5 screening: No deficits noted. Tuberculosis screening: No symptoms or risk factors identified. Fall Risk None identified. Assessment: 19:27 Reassessment: No changes from previously documented assessment. Patient and/or family ll3 updated on plan of care and expected duration. Pain level reassessed. Patient is alert, oriented x 3, equal unlabored respirations, skin warm/dry/pink. States pain is only with movement. Vital Signs: 15:29 BP 167 / 64; Pulse 80; Resp 18; Temp 98.6; Pulse Ox 97% ; Weight 74.84 kg; Height 5 ft. jh5 5 in. (165.10 cm); Pain 10/10; 16:28 BP 150 / 55; Pulse 79; Pulse Ox 98% ; ap3 17:29 BP 160 / 58; Pulse 79; Pulse Ox 97% ; ap3 18:51 BP 153 / 59; Pulse 75; Pulse Ox 98% on R/A; ap3 19:27 BP 145 / 57; Pulse 72; Resp 18; Pulse Ox 97% on R/A; ll3 15:29 Body Mass Index 27.46 (74.84 kg, 165.10 cm) [facility] ED Course: 15:27 Patient arrived in ED. 5 15:29 Dyan Sultana, LORENZA is Primary Nurse. 5 15:32 Rambo Parsons PA is PHCP. [facility] 15:32 Rigoberto Choi MD is Attending Physician. [facility] 15:32 Triage completed. jh5 15:33 Patient has correct armband on for positive identification. jh5 15:33 Arm band placed on right wrist. ap3 15:33 No provider procedures requiring assistance completed. Maintain EMS IV. Dressing jh5 intact. Good blood return noted. Site clean \T\ dry. Gauge \T\ site: 20g right ac. 15:35 CPK Sent. jh5 15:35 CMP Sent. jh5 15:35 CBC with Diff Sent. jh5 16:12 XRAY Femur LEFT In Process Unspecified. EDMS 16:12 XRAY Knee RIGHT 3 view In Process Unspecified. EDMS 17:50 Rojas cath inserted, using sterile technique, 16 Fr., by in, balloon inflated, to jh5 gravity drainage. 18:00 Dilcia Marti MD is Hospitalizing Provider. [facility] 19:28 Patient admitted, IV remains in place. 3 Administered Medications: 18:26 Drug: fentaNYL (PF) 50 mcg Route: IVP; Site: right forearm; [facility] 18:51 Follow up: Response: Pain is decreased ap3 Medication: 15:34 VIS not applicable for this client. [facility] Outcome: 18:00 Decision to Hospitalize by Provider. meseret 19:28 Admitted to Med/surg accompanied by nurse, via stretcher, room 204, with chart, Report ll3 called to LORENZA Matthew 19:28 Condition: stable 3 19:28 Instructed on the need for admit. 20:01 Patient left the ED. ll3 Signatures: Dispatcher [employer] EDMS Rambo Parsons PA PA jmm Prokisch, Amanda RN RN ap3 Dyan Sultana RN RN jh5 Narciso Velasquez RN RN ll3
--- NOTE | 2022-08-13 18:01 | EDPHYS ---
Physician Documentation [facility] Name: Jesusita Rodriguez Age: 66 yrs Sex: Female : 1955 Arrival Date: 08/13/2022 Time: 15:27 Bed 27 Private MD: CHANELLE Physician Rigoberto Choi HPI: 08/13 15:39 This 66 yrs old Female presents to ER via EMS with complaints of left hip pain. jmm 15:39 The patient or guardian reports an injury, pain. Onset: The symptoms/episode jmm began/occurred acutely, today. Modifying factors: The symptoms are alleviated by nothing, the symptoms are aggravated by any movement. This is a 66-year-old female with a history of hypertension the presents emerged part with complaints of left hip pain after a fall from a standing position which occurred earlier today.. Historical: - Allergies: 15:32 Antihistamine; jh5 15:32 antinflammatory; jh5 15:32 Codeine; jh5 15:32 HYDROCODONE; jh5 15:32 Ibuprofen; jh5 15:32 Morphine; jh5 15:32 relafen; jh5 - PMHx: 15:32 DVT; Hypertension; jh5 - Immunization history:: Adult Immunizations up to date. - Social history:: Smoking status: Patient reports the use of cigarette tobacco products, denies chronic smoking, but will smoke occasionally. ROS: 17:57 Constitutional: Negative for fever, chills, and weight loss, Cardiovascular: Negative jmm for chest pain, palpitations, and edema, Respiratory: Negative for shortness of breath, cough, wheezing, and pleuritic chest pain. 17:57 MS/extremity: Positive for injury or acute deformity. 17:57 All other systems are negative. Exam: 17:57 Constitutional: This is a well developed, well nourished patient who is awake, alert, jmm and in no acute distress. Head/Face: atraumatic. Eyes: EOMI, no conjunctival erythema appreciated ENT: Moist Mucus Membranes Neck: Trachea midline, Supple Chest/axilla: Normal chest wall appearance and motion. Cardiovascular: Regular rate and rhythm. No edema appreciated Respiratory: Normal respirations, no respiratory distress appreciated Abdomen/GI: Non distended Back: Normal ROM Skin: General appearance color normal 17:57 Musculoskeletal/extremity: Deformity noted to the left hip, compartments are soft, full dorsalis pedis pulse, painful flexion of the left hip, neurovascular intact. 17:57 Skin: Appearance: Color: normal in color. 17:57 Neuro: Orientation: is normal, Mentation: is normal, Memory: is normal. 17:57 Psych: Behavior/mood is pleasant, cooperative. Vital Signs: 15:29 BP 167 / 64; Pulse 80; Resp 18; Temp 98.6; Pulse Ox 97% ; Weight 74.84 kg; Height 5 ft. [facility] 5 in. (165.10 cm); Pain 10/10; 16:28 BP 150 / 55; Pulse 79; Pulse Ox 98% ; ap3 17:29 BP 160 / 58; Pulse 79; Pulse Ox 97% ; ap3 18:51 BP 153 / 59; Pulse 75; Pulse Ox 98% on R/A; ap3 19:27 BP 145 / 57; Pulse 72; Resp 18; Pulse Ox 97% on R/A; ll3 15:29 Body Mass Index 27.46 (74.84 kg, 165.10 cm) [facility] MDM: 15:32 Patient medically screened. [facility] 17:59 Data reviewed: vital signs, nurses notes. Counseling: I had a detailed discussion with [facility] the patient and/or guardian regarding: the historical points, exam findings, and any diagnostic results supporting the discharge/admit diagnosis, lab results, radiology results, the need for further work-up and treatment in the hospital. ED course: I discussed the patient with orthopedics, Dr. Quiles who will consult on the patient's admission. I discussed the patient Dr. Marti who will accept the patient to his service. 08/13 15:33 Order name: CBC with Diff; Complete Time: 16:05 [facility] 08/13 15:33 Order name: CMP; Complete Time: 16:14 [facility] 08/13 15:33 Order name: CPK; Complete Time: 16:14 [facility] 08/13 16:57 Order name: SARS RAPID; Complete Time: 18:14 [facility] 08/13 18:05 Order name: Troponin High Sensitivity [facility] 08/13 18:06 Order name: Basic Metabolic Panel [facility] 08/13 15:28 Order name: XRAY Femur LEFT; Complete Time: 16:31 [facility] 08/13 15:36 Order name: XRAY Knee RIGHT 3 view; Complete Time: 16:28 [facility] 08/13 18:05 Order name: Chest Single View XRAY [facility] 08/13 18:06 Order name: Basic Metabolic Panel EDMS 08/13 18:06 Order name: CBC with Automated Diff EDMS 08/13 18:06 Order name: CBC with Automated Diff EDMS 08/13 19:23 Order name: RAD; Complete Time: 19:28 EDMS 08/13 15:33 Order name: Saline Lock; Complete Time: 15:35 [facility] 08/13 17:15 Order name: Rojas; Complete Time: 17:50 [facility] 08/13 18:05 Order name: EKG - Nurse/Tech; Complete Time: 19:05 [facility] 08/13 18:06 Order name: Heart Healthy EDIA 08/13 18:06 Order name: NPO EDMS Administered Medications: 18:26 Drug: fentaNYL (PF) 50 mcg Route: IVP; Site: right forearm; [facility] 18:51 Follow up: Response: Pain is decreased ap3 Disposition Summary: 08/13/22 18:00 Hospitalization Ordered Hospitalization Status: Inpatient Admission [facility] Provider: Dilcia Marti Location: Telemetry/MedSurg (Inpatient) [facility] Condition: Stable jm Problem: new jmm Symptoms: are unchanged [facility] Bed/Room Type: Standard [facility] Room Assignment: 204(08/13/22 18:48) Diagnosis - Intertrochanteric fracture of femur [facility] Forms: - Medication Reconciliation Form jm - SBAR form [facility] Signatures: Dispatcher [employer] EDMaki Casanova RN RN dw Mickail, Joel, PA PA jmm Rees, Jessica, RN RN jh5 Prokisch, Amanda RN ap3 Corrections: (The following items were deleted from the chart) 15:47 15:33 Knee Left 3 View+RAD.RAD.BRZ ordered. EDIA EDIA 18:48 18:00 jmluz elena dw
[2022-08-13] MEDS ORDERED: ACETAMINOPHEN 500 MG TAB PO PRN (18:02)
[2022-08-13] MEDS ORDERED: ONDANSETRON 4 MG/2 ML VIAL IV PRN (18:02)
[2022-08-13] MEDS ORDERED: FENTANYL CITR 100 MCG/2 ML ONE (18:03)
[2022-08-13 18:11] LABS: SARS-CoV-2 Antigen Rapid Res Negative (Negative)
[2022-08-13] MEDS ORDERED: NA CHLORIDE 0.9% 1,000 ML IV SCH (19:00)
--- NOTE | 2022-08-13 19:22 | RAD REPORT ---
EXAM DESCRIPTION: RAD - Chest Single View - 08/13/2022 6:51 pm CLINICAL HISTORY: preop Chest pain. COMPARISON: CHEST PA AND LAT 2 VIEW dated 11/02/2013; CHEST PA AND LAT 2 VIEW dated 10/24/2008; CHEST SINGLE VIEW dated 04/24/2008; Thorax Wo Con dated 05/15/2020 FINDINGS: Portable technique limits examination quality. 4 cm opacity is present in the left apex laterally likely representing a mass. The lungs are emphysem atous. The heart is mildly enlarged in size. No displaced fractures. IMPRESSION: 4 cm opacity in the left lung apex laterally likely represents a mass.
[2022-08-13] MEDS: BISOPROLOL 5 MG TABLET PO SCH (21:00)
[2022-08-13] MEDS: AMLODIPINE 5 MG TAB PO SCH (21:34)
[2022-08-13] MEDS: D5 0.9 NS 1,000 ML IV SCH (21:35)
[2022-08-13] MEDS ORDERED: FENTANYL CITR 100 MCG/2 ML IV PRN (22:13)
[2022-08-13] MEDS: FENTANYL CITR 100 MCG/2 ML IV PRN (22:38)
[2022-08-14 05:56] LABS: Absolute Lymphocytes (CBC) 0.8 K/uL (0.7-4.9); Hematocrit 35.5 % (36.0-45.0); Lymphocytes % 9.2 % (15.3-44.8); MCV 108.1 fL (80-100); MPV 7.7 fL (7.6-11.3); RBC Red Blood Cell Count 3.28 M/uL (3.86-4.86)
[2022-08-14 06:06] LABS: Magnesium 1.5 mg/dL (1.8-2.4); Potassium 3.1 mmol/L (3.5-5.1)
--- NOTE | 2022-08-14 06:23 | HP ---
Date of Admission: 08/13/2022 Chief Complaint: Fall and pain in the left hip. History Of Present Illness: This is a 66-year-old pleasant female patient who was walking on uneven ground outside her home, lost balance and fell down. After she fell down, she immediately started complaining of pain in her left hip. She was not able to get up and reports that 3 people actually helped her to get up and she was able to go in her house with assistance and she got back into the bed and since that time she has remained in bed as of yesterday evening. This morning, she realized that she was not able to get out of bed again or to stand or walk, do any activity, so she subsequently came into hospital and after she was evaluated, she was admitted to the hospital with fracture of the left hip. I saw her in the emergency room. She denies any head injury. No other complaints reported. Allergies: TO MORPHINE CAUSING NAUSEA AND VOMITING, CODEINE CAUSING NAUSEA AND VOMITING, HYDROCODONE CAUSING NAUSEA AND VOMITING. ADVIL CAUSES NAUSEA AND VOMITING. NABUMETONE CAUSES NAUSEA AND VOMITING, AND ANTIHISTAMINES CAUSING HALLUCINATIONS. Review of Systems: Musculoskeletal: As mentioned above. All other systems reviewed are negative. Medications: Fosamax 70 mg once a week, amlodipine 5 mg 2 times a day, bisoprolol 5 mg daily, vitamin D3 2000 units daily, magnesium oxide 500 mg daily, rosuvastatin 20 mg daily at bedtime. Past Medical History: Significant for hypertension, mixed hyperlipidemia, peripheral vascular disease, left-sided carotid artery stenosis, hemochromatosis, renal cyst, anemia, and osteoporosis. She was diagnosed as having left lung cancer in 2019 and was treated with chemotherapy and radiation therapy at [facility] and sees her oncologist every three months. Past Surgical History: Significant for carotid artery stent placement in left carotid in 2008, right leg angioplasty with stent placement in 2008, left leg angioplasty with stent placement in 2018, , surgery for right wrist fracture and left wrist laceration surgery. Prior hip surgery because of osteoarthritis and foot surgery because of ganglion cyst. Family History: Father , had [place] and stroke. Mother , had dementia. Sister with diabetes. Social History: Prior history of smoking, not at present time. Use of alcohol, 2 glasses of wine daily. Physical Examination: General: Awake, alert, oriented, not in distress. Vital Signs: When she came into emergency room, blood pressure 167/64, pulse 80, respiratory rate 18, temperature 98.6, height 5 feet, weight 74.84 kg. HEENT: Head atraumatic, normocephalic. Conjunctivae nonerythematous. Sclerae white. Mouth, no thrush or edema noted. Ears/Nose, no mass, lesion, discharge noted. Neck: Supple. No JVD, lymph nodes, bruit, thyromegaly noted. Lungs: Bilateral good equal air entry. Clear to auscultation. No rhonchi. No rales. Heart: Normal heart sounds, no murmur or gallop. Abdomen: Soft, bowel sounds normal. No guarding, rigidity, tenderness, mass, hepatosplenomegaly, distention, or bruit noted. Extremities: Left foot is externally rotated. Left knee has dressing present and she has been going [facility] and reports that the area on the left leg for which she started going to [facility] has almost completely healed and she is going to be released from [facility] after her next visit. Skin: No rash, ulcer, cellulitis. Lymphatics: No lymph node enlargement in neck, supraclavicular, infraclavicular region. Neuro: No focal neurological deficit. Chest: Unremarkable. External Genitalia: Deferred. Rectal: Deferred. Laboratory Data: White count 9.3, hemoglobin 13.2, platelets 294. Sodium 135, potassium 3.4, chloride 98, bicarb 26, BUN 7, creatinine 0.52, glucose 125. Liver function tests unremarkable except total bilirubin 1.2. Her total CPK 160. Troponin pending. EKG and chest x-ray pending. X-ray of the left femur shows intertrochanteric fracture of the left femur. Impression: 1. Left hip intertrochanteric fracture. 2. Osteoporosis. 3. Hypertension. 4. Mixed hyperlipidemia. 5. Peripheral vascular disease. 6. Left carotid artery stenosis. 7. Renal cyst. 8. Anemia, unspecified. Plan: Admit patient to hospital for further evaluation and management of this problem. The patient is appropriate for inpatient and is expected to spend 2 midnights in hospital. We will go ahead and keep her n.p.o. after midnight. Consult orthopedic surgeon, Dr. Quiles. We will keep her n.p.o. after midnight and the patient is at acceptable risk from planned surgery. We will give pain medication per order. Give nausea medicine per order. DVT prophylaxis will be given using SCD and after surgery we will start her on appropriate anticoagulation therapy. Home medications will be continued per order for blood pressure and cholesterol problem. Details and plan of treatment discussed with the patient. I will see her tomorrow for followup. BETH/JENNIFER Voice ID: [id number]
[2022-08-14] MEDS ORDERED: Magnesium Sulfate 2gm IVPB 2 G/50 ML BAG IV ONE (07:22)
[2022-08-14] MEDS: KCL 20 MEQ/100 mL IVPB 20 MEQ/100 ML BAG IV SCH ×2 (07:57→13:08)
[2022-08-14] MEDS: AMLODIPINE 5 MG TAB PO SCH ×2 (07:59→20:05)
[2022-08-14] MEDS ORDERED: PNEUMOCOCCAL VACCINE 0.5 ML IMVAC ONE (08:00)
[2022-08-14] MEDS: FENTANYL CITR 100 MCG/2 ML IV PRN ×3 (08:03→22:34)
[2022-08-14] MEDS: TRIAMCINOLONE ACET 0.1% CREAM 80 GM TOP SCH ×2 (08:12→20:07)
[2022-08-14 08:19] LABS: Blood Morphology Comment NOTED (NOT SEEN); Macrocytosis 1+; Platelet Estimate ADEQ
[2022-08-14] MEDS: D5 0.9 NS 1,000 ML IV SCH (10:45)
[2022-08-14] MEDS ORDERED: Ringers Lactate 1,000 ML IV ONE (16:03)
[2022-08-14] MEDS ORDERED: CEFAZOLIN SODIUM 1 GM/VIAL ONE (16:16)
[2022-08-14] MEDS ORDERED: TRANEXAMIC ACID 1,000 MG/10 ML VIAL IV ONE (16:17)
[2022-08-14] MEDS ORDERED: SUCCINYLCHOLINE 20 MG/ML (10 ML) IV ONE (16:39)
[2022-08-14] MEDS ORDERED: MIDAZOLAM HCL 2 MG/2 ML INJ ONE (16:42)
[2022-08-14] MEDS ORDERED: propofoL 200 MG/20 ML VIAL IV ONE (16:42)
[2022-08-14] MEDS ORDERED: FENTANYL CITR 100 MCG/2 ML ONE ×2 (16:42→17:20)
[2022-08-14] MEDS ORDERED: ONDANSETRON 4 MG/2 ML VIAL ONE (16:42)
--- NOTE | 2022-08-14 17:10 | EKG ---
Test Date: 2022-08-13 Test Time: 19:07:35 [facility] Term Care Phlebotomist: BONNIE MEASUREMENT RESULTS: Intervals: Rate: 75 DC: 172 QRSD: 98 QT: 432 QTc: 482 Irving: P: 68 DC: 172 QRS: 84 T: 67 INTERPRETIVE STATEMENTS: Normal sinus rhythm Nonspecific ST abnormality Abnormal ECG Compared to ECG 04/12/2013 14:36:06 ST (T wave) deviation now present Electronically Signed On 08-14-22 17:06:46 CDT by Drew Cortes
--- NOTE | 2022-08-14 17:39 | P.BOP ---
Preoperative diagnosis: right hip intertrochanteric fracture Postoperative diagnosis: same Primary procedure: right hip closed reduction with IMrod fixation Estimated blood loss: 100 ccs Anesthesia: General Complications: None Transferred to: Recovery Room Condition: Good
[2022-08-14] MEDS: FENTANYL CITR 100 MCG/2 ML ONE ×2 (18:11→18:14)
--- NOTE | 2022-08-14 18:33 | RAD REPORT ---
EXAM DESCRIPTION: - Hip in OR Left 1 View - 08/14/2022 6:05 pm CLINICAL HISTORY: LT HIP RODDING COMPARISON: No comparisons FINDINGS/IMPRESSION: Nine intraoperative fluoroscopic images were submitted showing placement of an intramedullary mau and cephalomedullary screw in the left femur. Cumulative dose: 10.7 mGy Fluoro time: 1.1 minutes
[2022-08-14] MEDS: BISOPROLOL 5 MG TABLET PO SCH (20:07)
[2022-08-15] MEDS: CEFAZOLIN 1 GM in NA CHLORIDE 0.9% 50 ML IVPB SCH ×2 (02:00→09:17)
[2022-08-15] MEDS: FENTANYL CITR 100 MCG/2 ML IV PRN ×2 (02:30→09:49)
--- NOTE | 2022-08-15 03:06 | PN ---
Date of Progress Note: 08/14/2022 Subjective: Patient was seen this morning for followup. No new complaints or problems reported by h er. Lying in bed, not in any distress overnight. No chest pain or shortness of breath noted this mo rning. Objective: Vital Signs: Reviewed. HEENT: Unremarkable. Lungs: Clear to auscultation. Heart: Sounds normal. Abdomen: Soft. Bowel sounds normal. No guarding, rigidity, tenderness, or distention. Extremities: No leg edema. Laboratory Data: White count 8.8, hemoglobin 12.2, platelets 240. Sodium 136, potassium 3.1, chlori de 100, bicarb 30, BUN 7, creatinine 0.48, glucose 139, magnesium 1.5. Impression: 1.Left hip fracture. 2.Hypokalemia. 3.Hypomagnesemia. 4.Hypertension. Plan: We will go ahead and continue current medication. IV fluid will be continued. Continue curre nt pain medication and nausea medicine per order. Replace electrolyte per protocol. The patient was kept n.p.o. for surgery and this afternoon she did have surgery and Dr. Quiles did call me and in formed me that surgery was uneventful. I will see her tomorrow morning for followup and we will start anticoagulation therapy starting tomorrow. We will also consult inpatient rehab for her. BETH/MODL Voice ID: [id number] Report ID: [id number]
--- NOTE | 2022-08-15 05:30 | OP ---
Date of Procedure: 08/14/2022 Surgeon: Hector Quiles MD Preoperative Diagnosis: Left hip intertrochanteric fracture. Postoperative Diagnosis: Left hip intertrochanteric fracture. Procedure: Left closed reduction with intramedullary mau fixation, using the Biomet AFFIXUS nail. Estimated Blood Loss: 20 cc. Estimated Fluid Loss: 100 cc. Complications: No complications. Specimen: No pathology specimens sent. Indications For Operation: Ms. Rodriguez is a 66-year-old female who unfortunately fell injuring her le ft hip. She was seen and examined in the emergency department where she was ruled out for other inju saundra; however, x-rays demonstrated a displaced left intertrochanteric fracture. Risks, benefits, and alternatives of methods of treating have been discussed. The patient states she understands things as presented and wishes to proceed. Description Of Procedure: The patient was taken to the operating room and placed in supine position. General anesthesia was obtained by staff. Following this, she was then positioned on the fracture table with all bony prominences being checked. C-arm was then brought in with a good closed reductio n. The left hip was then prepped and draped in usual sterile fashion procedure and a standard incisi on was made which was superior to the greater trochanter. This was taken down carefully through skin and soft tissues and the fascia. A finger was used to palpate the greater trochanter and a starting awl was then used to establish starting point. After this, the mau was then placed without difficul ty across the fracture site into the shaft. The loose hand packer was then used to ream down to pass the l helena trochanter and a size 9 x 125 nail was then placed. The cephalomedullary screw was then placed in appropriate position using biplanar C-arm radiography. This was followed by placement of any rot ation screw. Attention was then turned distally where the distal interlocking screw was placed. The wound was irrigated and the fascia was closed in a watertight fashion using heavy Vicryl sutures, fo llowed by closure of skin with Vicryl followed by blake. The patient then placed Aquacel dressing, awakened, and taken to recovery room in good condition. No complications. SE/MODL Voice ID: [id number] Report ID: [id number]
[2022-08-15 05:37] LABS: Absolute Lymphocytes (CBC) 0.9 K/uL (0.7-4.9); Hematocrit 33.1 % (36.0-45.0); Lymphocytes % 9.9 % (15.3-44.8); MPV 7.5 fL (7.6-11.3); RBC Red Blood Cell Count 3.06 M/uL (3.86-4.86)
[2022-08-15 05:51] LABS: Magnesium 1.7 mg/dL (1.8-2.4); Potassium 3.6 mmol/L (3.5-5.1)
--- NOTE | 2022-08-15 07:06 | CON ---
Date of Consultation: 08/13/2022 History Of Present Illness: I have not seen this patient in the past. She is a 66-year-old female w ho unfortunately fell injuring her left lower extremity. She was seen and examined in the emergency department where she was ruled out for other injuries; however, x-rays demonstrated a slightly displa richa intertrochanteric fracture of the femur on the left. Physical Examination: All of her long bones and joints are palpated without pain or crepitation with the exception of her l eft hip, which is painful to any movement or manipulation. Imaging: Review of x-rays reveal a slightly displaced intertrochanteric fracture on the left. Assessment: Risks, benefits, and alternatives of different methods of treating this have been discus sed with the patient. She says she understands things as presented. At this time, we have selected closed reduction with intramedullary nailing, which will most likely be completed when cleared, tianna morales on the evening of the . Otherwise, all of her questions have been answered. VANIA Voice ID: [id number] Report ID: [id number]
[2022-08-15] MEDS ORDERED: MAGNESIUM HYDROXIDE 8% 30 ML PO PRN (07:30)
[2022-08-15] MEDS: APIXABAN 2.5 MG TABLET PO SCH ×2 (09:00→20:08)
[2022-08-15] MEDS ORDERED: MAGNESIUM SULFATE 1 gm IVPB 1 GM/100 ML BAG IV ONE (09:00)
[2022-08-15] MEDS ORDERED: POTASSIUM CL SA 10 MEQ TAB PO ONE (09:00)
[2022-08-15] MEDS: AMLODIPINE 5 MG TAB PO SCH ×2 (09:16→20:07)
[2022-08-15] MEDS: TRIAMCINOLONE ACET 0.1% CREAM 80 GM TOP SCH ×2 (09:18→20:08)
[2022-08-15] MEDS: MAGNESIUM OXIDE 400 MG TAB PO SCH (09:22)
[2022-08-15] MEDS: LOSARTAN POTASSIUM 50 MG TABLET PO SCH (09:22)
--- NOTE | 2022-08-15 14:07 | PN ---
Date of Progress Note: 08/15/2022 Subjective: The patient was seen this morning for followup. She had her surgery done for left hip f racture yesterday, and postoperatively, she has done very well. Her pain is under better control now after hip surgery . Overnight, she denies any new complaints. No chest pain, shortness o f breath. No nausea, no vomiting. Her last bowel movement was a few days ago. Vital signs reviewed . Blood pressure remains elevated. Physical Examination: HEENT: Examination unremarkable. Lungs: Clear to auscultation. Heart: Sounds normal. Abdomen: Soft. Bowel sounds normal. No guarding, rigidity, tenderness, or distention. Extremities: No leg edema. Laboratory Data: White count 9.3, hemoglobin 11.6, platelets 237 3.6, chloride 102, bicar b 29, BUN 6, creatinine 0.50, glucose 103, magnesium 1.7. Impression: 1.Left hip intertrochanteric fracture, status post surgery. 2.Hypokalemia. 3.Hypomagnesemia. 4.Hypertension. 5.Hyperlipidemia. Plan: We will go ahead and continue current antihypertensive medications which are amlodipine and bi soprolol as she takes at home. We will go ahead and add low-dose losartan 25 mg daily as of this clemente tristan for better blood pressure control. Continue her cholesterol medication, which is rosuvastatin 2 0 mg at bedtime. She takes magnesium oxide at home. We will continue that on a daily basis, and the patient is on electrolyte replacement protocol as well. We will add tramadol 50 mg every 6 hours as needed for moderate pain and change the fentanyl dose now to 25 mcg as needed for severe pain, and w e will discontinue 50 mcg dose on the fentanyl. Stool softener, Senokot-S 2 tablets daily at bedtime and milk of magnesia 30 cc daily as needed was ordered for her. Physical Therapy to continue to wor k with her and consult inpatient rehab. I will be out of town for the next few days, and starting to day, this patient's care will be taken over by hospitalist team, and I have discussed details with nikhil cates hospitalist. BETH/MODL Voice ID: [id number] Report ID: [id number]
[2022-08-15] MEDS: ROSUVASTATIN 10 MG TAB PO SCH (20:07)
[2022-08-15] MEDS: DOCUSATE NA/SENNA CONC 1 TAB PO SCH (20:07)
[2022-08-15] MEDS: BISOPROLOL 5 MG TABLET PO SCH (20:07)
[2022-08-16] MEDS: FENTANYL CITR 100 MCG/2 ML IV PRN (01:50)
[2022-08-16 04:21] LABS: Magnesium 1.9 mg/dL (1.8-2.4); Potassium 3.8 mmol/L (3.5-5.1)
--- NOTE | 2022-08-16 05:19 | PN ---
Date of Progress Note: 08/15/2022 The patient is seen today. She is in bed and eating. Her incision is inspected and it is clean, dry , and intact. Her hemoglobin is 11.6, hematocrit is 33.1. She says she has attempted to work with p hysical therapy, but it was somewhat difficult. However, the physical therapist will come back in to see her. We explained her surgery and that she is to be touchdown weightbearing. All of her other questions have been answered. VANIA Voice ID: [id number] Report ID: [id number]
[2022-08-16] MEDS ORDERED: POTASSIUM CL SA 10 MEQ TAB PO ONE (09:00)
[2022-08-16] MEDS: MAGNESIUM OXIDE 400 MG TAB PO SCH (11:24)
[2022-08-16] MEDS: LOSARTAN POTASSIUM 50 MG TABLET PO SCH (11:24)
[2022-08-16] MEDS: AMLODIPINE 5 MG TAB PO SCH ×2 (11:24→21:00)
[2022-08-16] MEDS: APIXABAN 2.5 MG TABLET PO SCH ×2 (11:33→21:41)
[2022-08-16] MEDS: TRIAMCINOLONE ACET 0.1% CREAM 80 GM TOP SCH ×2 (11:35→21:42)
[2022-08-16] MEDS: TRAMADOL HCL 50 MG TAB PO PRN (17:59)
--- NOTE | 2022-08-16 19:51 | P.PN ---
Subjective Date of Service: 08/16/22 Chief Complaint: Left Hip Fracture Subjective: No new changes No acute events overnight. She reports persistent left hip pain. She is eager to work with PT, but worried her hip may be too painful. Review of Systems 10-point ROS is otherwise unremarkable Musculoskeletal: Other (left hip pain) Physical Examination - Vital Signs Temperature: 98.2 F Blood Pressure: 130/49 Pulse: 71 Respirations: 17 Pulse Ox (%): 96 - Physical Exam General: Alert, In no apparent distress, Oriented x3 HEENT: Atraumatic, PERRLA, Mucous membr. moist/pink, EOMI, Sclerae nonicteric Neck: Supple, JVD not distended Respiratory: Clear to auscultation bilaterally, Normal air movement Cardiovascular: No edema, Regular rate/rhythm, Normal S1 S2, No gallops, No rubs, No murmurs Gastrointestinal: Normal bowel sounds, Soft and benign, Non-distended, No tenderness, No rebound, No guarding Musculoskeletal: No clubbing, Other (left hip surgical site is clean, dry, and intact) Integumentary: No rashes Assessment And Plan - Plan # Traumatic Ground-Level Fall complicated by Left Intertrochanteric Proximal Femur Fracture s/p Closed Reduction with Intermedullary Heri Fixation (08/14/2022) - Post-Op Day #2 - Orthopedic Surgery following - recommendations appreciated - Appears to be improving clinically, and is willing to work with PT - Currently optimizing pain control - Case management involved for acute inpatient rehab placement - Her and her are in agreement with plan - Continue apixaban for post-op VTE prophylaxis # Hypertension - Continue amlodipine, losartan # Hyperlipidemia - Continue rosuvastatin Timoteo Dolan M.D. Discharge Plan: Transfer (acute rehab)
[2022-08-16] MEDS: BISOPROLOL 5 MG TABLET PO SCH (21:00)
[2022-08-16] MEDS: DOCUSATE NA/SENNA CONC 1 TAB PO SCH (21:40)
[2022-08-16] MEDS: ROSUVASTATIN 10 MG TAB PO SCH (21:40)
[2022-08-17 03:16] LABS: Potassium 4.5 mmol/L (3.5-5.1)
[2022-08-17] MEDS: APIXABAN 2.5 MG TABLET PO SCH ×2 (08:48→20:45)
[2022-08-17] MEDS: MAGNESIUM OXIDE 400 MG TAB PO SCH (08:48)
[2022-08-17] MEDS: LOSARTAN POTASSIUM 50 MG TABLET PO SCH (08:48)
[2022-08-17] MEDS: TRIAMCINOLONE ACET 0.1% CREAM 80 GM TOP SCH ×2 (08:49→20:46)
[2022-08-17] MEDS: AMLODIPINE 5 MG TAB PO SCH ×2 (08:49→20:46)
--- NOTE | 2022-08-17 18:16 | P.PN ---
Subjective Date of Service: 08/17/22 Chief Complaint: Left Hip Fracture No acute events overnight. She reports that her pain is well-controlled. She was working with PT this morning during rounds. Review of Systems 10-point ROS is otherwise unremarkable Musculoskeletal: Other (left hip pain) Physical Examination - Vital Signs Temperature: 98.6 F Blood Pressure: 133/53 Pulse: 87 Respirations: 16 Pulse Ox (%): 96 Assessment And Plan - Plan - Physical Exam General: Alert, In no apparent distress, Oriented x3 HEENT: Atraumatic, PERRLA, Mucous membr. moist/pink, EOMI, Sclerae nonicteric Neck: Supple, JVD not distended Respiratory: Clear to auscultation bilaterally, Normal air movement Cardiovascular: No edema, Regular rate/rhythm, Normal S1 S2, No gallops, No rubs, No murmurs Gastrointestinal: Normal bowel sounds, Soft and benign, Non-distended, No tenderness, No rebound, No guarding Musculoskeletal: No clubbing, Other (left hip surgical site is clean, dry, and intact) Integumentary: No rashes # Traumatic Ground-Level Fall complicated by Left Intertrochanteric Proximal Femur Fracture s/p Closed Reduction with Intermedullary Heri Fixation (08/14/2022) - Post-Op Day #3 - Orthopedic Surgery following - recommendations appreciated - Appears to be improving clinically, and is willing to work with PT - Currently optimizing pain control - Case management involved for acute inpatient rehab placement - Her and her are in agreement with plan - Continue apixaban for post-op VTE prophylaxis # Hypertension - Continue amlodipine, losartan # Hyperlipidemia - Continue rosuvastatin No new changes today. Awaiting acceptance into acute rehab. Timoteo Dolan M.D.
[2022-08-17] MEDS: ROSUVASTATIN 10 MG TAB PO SCH (20:45)
[2022-08-17] MEDS: DOCUSATE NA/SENNA CONC 1 TAB PO SCH (20:45)
[2022-08-17] MEDS: BISOPROLOL 5 MG TABLET PO SCH (20:46)
[2022-08-18] MEDS: AMLODIPINE 5 MG TAB PO SCH ×2 (08:02→20:47)
[2022-08-18] MEDS: MAGNESIUM OXIDE 400 MG TAB PO SCH (08:03)
[2022-08-18] MEDS: LOSARTAN POTASSIUM 50 MG TABLET PO SCH (08:03)
[2022-08-18] MEDS: TRIAMCINOLONE ACET 0.1% CREAM 80 GM TOP SCH ×2 (08:04→20:44)
[2022-08-18] MEDS: TRAMADOL HCL 50 MG TAB PO PRN (08:18)
[2022-08-18] MEDS: APIXABAN 2.5 MG TABLET PO SCH ×2 (08:59→20:43)
[2022-08-18] MEDS: FENTANYL CITR 100 MCG/2 ML IV PRN (14:48)
--- NOTE | 2022-08-18 15:48 | P.PN ---
Subjective Date of Service: 08/18/22 Chief Complaint: Left Hip Fracture No acute events overnight. She reports that her pain is well-controlled. She is awaiting placement into acute rehab. Review of Systems 10-point ROS is otherwise unremarkable Musculoskeletal: Other (left hip pain) Physical Examination - Vital Signs Temperature: 97.5 F Blood Pressure: 106/46 Pulse: 75 Respirations: 14 Pulse Ox (%): 94 Assessment And Plan - Plan - Physical Exam General: Alert, In no apparent distress, Oriented x3 HEENT: Atraumatic, PERRLA, Mucous membr. moist/pink, EOMI, Sclerae nonicteric Neck: Supple, JVD not distended Respiratory: Clear to auscultation bilaterally, Normal air movement Cardiovascular: No edema, Regular rate/rhythm, Normal S1 S2, No gallops, No rubs, No murmurs Gastrointestinal: Normal bowel sounds, Soft and benign, Non-distended, No tenderness, No rebound, No guarding Musculoskeletal: No clubbing, Other (left hip surgical site is clean, dry, and intact) Integumentary: No rashes # Traumatic Ground-Level Fall complicated by Left Intertrochanteric Proximal Femur Fracture s/p Closed Reduction with Intermedullary Heri Fixation (08/14/2022) - Post-Op Day #4 - Orthopedic Surgery following - recommendations appreciated - Appears to be improving clinically, and is willing to work with PT - Currently optimizing pain control - Case management involved for acute inpatient rehab placement - Her and her are in agreement with plan - Continue apixaban for post-op VTE prophylaxis # Hypertension - Continue amlodipine, losartan # Hyperlipidemia - Continue rosuvastatin No new changes today. Awaiting acceptance into acute rehab. - Dr. Marti will re-assume her care tomorrow morning at 06:00 AM. Timoteo Dolan M.D. Discharge Plan: Transfer (rehab)
[2022-08-18] MEDS: DOCUSATE NA/SENNA CONC 1 TAB PO SCH (20:43)
[2022-08-18] MEDS: ROSUVASTATIN 10 MG TAB PO SCH (20:44)
[2022-08-18] MEDS: BISOPROLOL 5 MG TABLET PO SCH (20:46)
[2022-08-19 06:16] LABS: Potassium 4.1 mmol/L (3.5-5.1)
[2022-08-19] MEDS ORDERED: BISACODYL 10 MG RECTAL SUPP PR ONE (07:13)
[2022-08-19] MEDS ORDERED: Magnesium Sulfate 2gm IVPB 2 G/50 ML BAG IV ONE (08:02)
[2022-08-19] MEDS: APIXABAN 2.5 MG TABLET PO SCH ×2 (08:47→20:09)
[2022-08-19] MEDS: LOSARTAN POTASSIUM 50 MG TABLET PO SCH (08:47)
[2022-08-19] MEDS: AMLODIPINE 5 MG TAB PO SCH ×2 (08:48→20:09)
[2022-08-19] MEDS: MAGNESIUM OXIDE 400 MG TAB PO SCH (08:48)
[2022-08-19] MEDS: TRIAMCINOLONE ACET 0.1% CREAM 80 GM TOP SCH ×2 (08:48→20:12)
[2022-08-19] MEDS: FENTANYL CITR 100 MCG/2 ML IV PRN ×2 (09:27→14:36)
[2022-08-19 09:58] VITALS: BMI 27.4
[2022-08-19] MEDS: ROSUVASTATIN 10 MG TAB PO SCH (20:08)
[2022-08-19] MEDS: DOCUSATE NA/SENNA CONC 1 TAB PO SCH (20:08)
[2022-08-19] MEDS: BISOPROLOL 5 MG TABLET PO SCH (20:09)
[2022-08-19 21:32] VITALS: TEMP 98
[2022-08-19 22:22] VITALS: O2SAT 98
--- NOTE | 2022-08-20 02:13 | PN ---
Date of Progress Note: 08/19/2022 Subjective: Patient was seen this morning for followup. No new complaints or problems reported by h er except she is still having constipation problem and has not had any bowel movement since she has b een in the hospital. She started to have some uncomfortable feeling in the lower abdomen. No nausea . No vomiting. Objective: Vital Signs: Reviewed. HEENT: Examination unremarkable. Lungs: Clear to auscultation. Heart: Sounds normal. Abdomen: Soft. Bowel sounds normal. No guarding, rigidity, tenderness, or distention. Extremities: No leg edema. Laboratory Data: Sodium 133, potassium 4.1, chloride 101, bicarb 28, BUN 13, creatinine 0.47, glucos e 114. Impression: 1.Left hip fracture. 2.Constipation. 3.Anemia, unspecified. Plan: We will go ahead on medications and give Dulcolax rectal suppository and milk of magnesia per order. Continue Senokot as per order. Continue current pain medication. The patient was encouraged to participate with physical therapy as best as she can and we are waiting for [facility]'s a pproval for the patient to go to inpatient rehab. I will see her tomorrow for followup. Continue current Eliquis for DVT prophylaxis. We will repeat CBC tomorrow morning. BETH/MODL Voice ID: [id number] Report ID: [id number]
[2022-08-20 05:39] LABS: Hematocrit 30.8 % (36.0-45.0); Lymphocytes % 12.5 % (15.3-44.8); MCV 107.1 fL (80-100); MPV 7.6 fL (7.6-11.3); RBC Red Blood Cell Count 2.88 M/uL (3.86-4.86)
[2022-08-20] MEDS: TRIAMCINOLONE ACET 0.1% CREAM 80 GM TOP SCH (09:00)
[2022-08-20] MEDS: MAGNESIUM OXIDE 400 MG TAB PO SCH (09:00)
[2022-08-20] MEDS: APIXABAN 2.5 MG TABLET PO SCH (09:17)
[2022-08-20] MEDS: LOSARTAN POTASSIUM 50 MG TABLET PO SCH (09:18)
[2022-08-20] MEDS: TRAMADOL HCL 50 MG TAB PO PRN (09:18)
[2022-08-20] MEDS: AMLODIPINE 5 MG TAB PO SCH (09:18)
[2022-08-20 09:19] VITALS: BP 115/46
--- NOTE | 2022-08-21 18:43 | DS ---
Date of Discharge: 08/20/2022 Subjective: Patient was seen this morning for followup. No new complaints problems reported by her. Lying in bed, not in distress. Objective: Vital Signs: Reviewed. HEENT: Unremarkable. Lungs: Clear to auscultation. Heart: Sounds normal. Abdomen: Soft. Bowel sounds normal. No guarding, rigidity, tenderness, distention. Extremities: No leg edema. Laboratory Data: Last chemistry yesterday, sodium 133, potassium 4.1, chloride 101, bicarb 28, BUN 1 3, creatinine 0.47, glucose 114. Last CBC today, white count 8, hemoglobin 10.7, platelets 437. Upo n admission; white count 9.3, hemoglobin 13.2, platelets 294. Discharge Medications And Instructions: Continue all current medications and orders and see copy of transfer order for details. Hospital Course: This is a 66-year-old very pleasant female patient who came into emergency room aft er she had fallen down and she was admitted to the hospital with left hip intertrochanteric fracture. Please see dictated H and P for more information. After patient was evaluated, admitted to the [facility]. Orthopedic consultation was requested, and the patient had surgery done. Postoperatively, chad cates did very well. No complications reported. Pain medications will her condition has remained stable . Physical therapy was consulted. Today, rehab was able to accept the patient after getting [facility] approval, and the patient was transferred in stable condition and I will continue to follow up at rehab. Final Diagnoses: 1.Left hip intertrochanteric fracture. 2.Acute blood loss anemia. 3.Osteoporosis. 4.Hypertension. 5.Mixed hyperlipidemia. 6.Peripheral vascular disease. 7.Renal cyst. 8.Left carotid artery stenosis. 9.Anemia, unspecified. BETH/MODL Voice ID: [id number] Report ID: [id number]
== END 2022-08-20 11:03 | DRG 482 ==
LOC: ER 15:26 → ERHOLD 18:01 → 2ND 19:43
PROVIDERS: ADMIT Internal Medicine; ATTEND Internal Medicine
PROC: 0QS706Z Reposition Left Upper Femur with Intramedullary Internal Fixation Device, Open Approach (ICD-10-PCS; principal; 2022-08-14 16:45)
DX: S72.142A Displaced intertrochanteric fracture of left femur, initial encounter for closed fracture (principal); I10 Essential (primary) hypertension; E78.5 Hyperlipidemia, unspecified; D64.9 Anemia, unspecified; K59.00 Constipation, unspecified; F17.210 Nicotine dependence, cigarettes, uncomplicated; Z88.5 Allergy status to narcotic agent; Z88.8 Allergy status to other drugs, medicaments and biological substances; Z86.718 Personal history of other venous thrombosis and embolism; Z79.899 Other long term (current) drug therapy; Z20.822 Contact with and (suspected) exposure to COVID-19
CPT/HCPCS: 36415; 51702; 71045; 80048; 80053; 82550; 82947; 83735; 85025; 87811; 93005; 96374; 97110; 97116; 97161; 97530; 99285; J0330; J0690; J2250; J2405; J2704; J3010; J3475; J3480; J7042; J7120; U0003

== ENCOUNTER 2022-08-16 11:56 | Inpatient (IN) | payer BC ==
--- NOTE | 2022-08-20 07:48 | R.PREADM ---
PRE-ADMISSION SCREENING FORM SCREENING DATE AND TIME 08/16/2022 13:00 (EST) ANTICIPATED REHAB ADMISSION DATE 08/18/2022 REFERRAL ORIGIN/HOSPITAL [facility] REFERRAL DATE AND TIME 08/16/2022 13:00 (CDT) ACUTE ADMIT DATE 08/13/2022 Previous Rehabilitation(s): No. REFERRING PHYSICIAN Luis Marti REHAB FACILITY [facility] CLINICAL LIAISON Lucy Barney PHYSICIAN REVIEWER Dr. Dave King M.D. MR# [id number] NAME NATHAN MONTEJO ADDRESS [address] [place] [address] DATE OF 1955 AGE 66 SSN# [id number] GENDER female MARITAL STATUS RACE Z. None of the above ETHNICITY A. No, not of , /a, or Albanian origin [id number]. LANGUAGE ADMIT FROM 02 - [facility] PRE-HOSPITAL LIVING SETTING 01 - Home (private home/apt. board/care, assisted living, longterm, transitional living) HOME TYPE AND DETAILS Type of home: single family house # of levels in the residence: 1 # of steps to enter the residence: 0 # of steps within the residence: 0 PRE-HOSPITAL LIVING WITH Family/Relatives FAMILY SUPPORT Yes PHONE PRIMARY FAMILY CONTACT ON ADM.? no IS PRIMARY FAMILY CONTACT AUTH. REP.? no PHONE 1ST CONTACT ON ADM. no IS 1ST CONTACT AUTH. REP.? no PHONE 2ND CONTACT ON ADM.? no PATIENT EMPLOYMENT STATUS Retired (for age) PATIENT EMPLOYER No Employer PAYOR INFORMATION: 1ST PAYOR NAME Commerical Insurance 1ST PAYOR INJURY/ILLNESS DUE TO ACCIDENT? No ANOTHER GREEN PARTY RESPONSIBLE? No PRIMARY REHAB/ACUTE DIAGNOSIS: S72.142 intertrochanteric fracture of left femur ONSET DATE 08/13/2022 REHAB IMPAIRMENT CATEGORY (VALENTIN): 07 Fracture of LE (FracLE) MEETS 60% rule AFFECTED EXTREMITIES: LLE PRIMARY DIAGNOSIS-RELATED SURGERIES: closed reduction with IMrod fixation- performed by Hector Cadet on 08/14/2022 COMORBID REHAB/ACUTE DIAGNOSES: - Non-Tiered Hyperkalemia (E87.5) Hypomagnesemia (E83.42) Hyperlipidemia, unspecified (E78.5) Essential (primary) hypertension (I10) INTERVENTIONS: - Hypertension Increase physical activity Implement healthy diet Assess/ Monitor patient B/P and treat with prescribed medications Provide comfort measures - Hyperlipidemia Monitor LDL level and treat with prescribed medications Implement healthy diet Monitor and control blood pressure Monitor blood pressure and maintain within parameters through administering routine medication Regular physical activity - Hypomagnesemia Assess pt cardiac status Administer supplements as prescribed Monitor pt labs - Hypokalemia Monitor pt labs Administer medication per MD order and monitor effectivness - Left Hip Fracture Aggressive PT/OT Assess pt pain and treat with prescribed medication RISK FOR COMPLICATIONS: - Pain Anticipate the need for pain medication for optimal pain managment Assist patient with frequent position changes at least every 2 hours Administer prescribed pain medication as needed Educate patient on relaxation and deep breathing techniques Assess pt for pain and Administer prescribed pain medication as needed - DVT Active and Passive ROM exercises Assist patient with frequent position changes Elevate BLE Administer medications per MD order - Skin Breakdown Use of pillows or foam wedges while in bed Repositioning q 2 hours Encourage ambulation as tolerated - Falls Provide assistance getting out of bed and with ambulation Maintain call light within patient reach for easy access to nursing assistance Assess for medication side effects - Stroke Assess/ Monitor and maintain patient pain level Assess/ Monitor patient blood pressure SUMMARY OF ACUTE HOSPITALIZATION: Pt. is a 66 yo Right-handed WF. Her impairment category is Orthopaedic Disorders 08 - Unilateral Hip Fracture (07.11). Pre-morbidly, Pt. was independent/mod-I in Locomotion and Self-Care; and she had good Balance, Transf ers Control, Endurance, and Safety Awareness. Currently, she has deficits of Locomotion, Safety Awareness, Balance, Transfers Control, Self-Care, a nd Endurance. Pt. is now referred to [facility] for acute in-patient rehabilitation in order to maximize patient's functional independence in activities of daily living, strength, ROM, and mobi lity. Patient has realistic goal of being discharged at assistance level 6-[place]ont to reside at Home with Fam sebastien/Relatives. Pt is a 66 yo female who presented to the hospital after suffering a fall which resulted in an IT fem ur fracture. Pt underwent CR IM Heri fixation on TDWB LLE 08/14/22. Pt has PMH of osteoporosis, HTN, Hy perlipidemia, PVD, Anemia, and Cancer ( Dx 2019). Pt is experiencing significant pain that is compl icated to control due to pt allergies to pain medication. Per PT, pt is MOD A with bed [facility] is unable to perform transfers and ambulate at this time due to fear of pain and jumpiness.Noteabl e decreased LLE strength. Prior to onset pt was independent in ambulation and ADLs. PAST MEDICAL AND SURGICAL HISTORY: - MedicalCardiovascular PVD HTN - Musculoskeletal Fractures RIGHT WRIST Osteoporosis MEDICATION ALLERGIES: Morphine Codeine Advil Hydrocodone Antihistamines Nabumetone ENVIRONMENTAL ALLERGIES: - Substance Allergies None Known - Other Allergies None Known CODE STATUS: Full code WEIGHT/HEIGHT/BMI: WEIGHT 165 lbs HEIGHT 65 BMI 27.45 SKIN DIAGRAM: Sharp Left hip pain; level - 1. [id number]. PRIOR FUNCTIONING: EVERYDAY ACTIVITIES. A. SELF CARE Independent - Patient completed the activities by him/herself, with or without an assistive device, w ith no assistance from a helper. CODE: 3 B. INDOOR MOBILITY (AMBULATION) Independent - Patient completed the activities by him/herself, with or without an assistive device, w ith no assistance from a helper. CODE: 3 C. STAIRS Unknown CODE: 8 D. FUNCTIONAL COGNITION Independent - Patient completed the activities by him/herself, with or without an assistive device, w ith no assistance from a helper. CODE: 3 [id number]. PRIOR DEVICE USE. D. Walker ACTIVE DIAGNOSES I0900. Peripheral Vascular Disease (PVD) or Peripheral Arterial Disease (PAD)I2900. Diabetes Mellitus (DM) (e.g., diabetic retinopathy, nephropathy, and neuropathy)I7900. None of the above (I0900 or I29 00)K0520. NUTRITIONAL APPROACHES.: Z. None of the above VITAL SIGNS Temperature: 98.2 F SBP/DBP: 128/42 Pulse: 89 Resp: 18 Vital signs stable, afebrile MEDICATIONS/TREATMENT: Other- See attached MAR (Medication Administration Record). CURRENT SPHINCTER CONTROL: Pre-hospital bladder status: unspecified # of bladder accidents in the last 7 days prior to screenin Pre-hospital bowel status: unspecified # of bowel accidents in the last 7 days prior to screenin Last Bowel Movement Date: 08/16/2022 DETAILED CURRENT FUNCTIONAL STATUS: - Bladder accident frequency: 7-Ind - No accidents in the past 7 days - Bowel accident frequency: 7-Ind - No accidents in the past 7 days - Walking score based on distance walked: 0(N/A) - Wheelchair score based on distance traveled: 0(N/A) QI SCORES: - Self-Care A. Eating 05-Setup or clean-up assistance B. Oral hygiene 05-Setup or clean-up assistance C. Toileting hygiene 03-Partial/moderate assistance E. Shower/bathe self 02-Substantial/maximal assistance F. Upper body dressing 05-Setup or clean-up assistance G. Lower body dressing 02-Substantial/maximal assistance H. Putting on/taking off footwear 02-Substantial/maximal assistance - Mobility A. Roll left and right 03-Partial/moderate assistance B. Sit to lying 03-Partial/moderate assistance C. Lying to sitting on side of bed 03-Partial/moderate assistance D. Sit to stand 88-Not attempted due to medical condition or safety concerns E. Chair/irf-bk-[id number] transfer 88-Not attempted due to medical condition or safety concerns F. Toilet transfer 88-Not attempted due to medical condition or safety concerns G. Car transfer 88-Not attempted due to medical condition or safety concerns I. Walk 10 feet 88-Not attempted due to medical condition or safety concerns J. Walk 50 feet with two turns 88-Not attempted due to medical condition or safety concerns K. Walk 150 feet 88-Not attempted due to medical condition or safety concerns L. Walking 10 feet on uneven surfaces 88-Not attempted due to medical condition or safety concerns M. 1 step (curb) 88-Not attempted due to medical condition or safety concerns N. 4 steps 88-Not attempted due to medical condition or safety concerns O. 12 steps 88-Not attempted due to medical condition or safety concerns P. Picking up object 88-Not attempted due to medical condition or safety concerns R. Wheel 50 feet with two turns 09-Not applicable S. Wheel 150 feet 09-Not applicable - Bladder and Bowel Bladder continence 0-Always continent Bowel continence 0-Always continent HISTORY OF FALLS. HAS THE PATIENT HAD TWO OR MORE FALLS IN THE PAST YEAR OR ANY FALL WITH INJURY IN T HE PAST YEAR?: Yes PRIOR SURGERY. DID THE PATIENT HAVE MAJOR SURGERY DURING THE 100 DAYS PRIOR TO ADMISSION?: Yes [id number]. SPECIAL TREATMENTS, PROCEDURES, AND PROGRAMS A1. CHEMOTHERAPY: A2. IV B1. RADIATION: B1. Radiation Z1. NONE OF THE ABOVE: No THERAPY NOTES FROM ACUTE CARE: Attached. SAFETY COCERNS/PRECAUTIONS: Fall history/High risk of falls - # of falls this year 1 Balance POST-SURGICAL HIP PRECAUTIONS: Post-surgical hip precautions WEIGHT BEARING STATUS: TDWB SKIN BREAKDOWN RISK: Skin Breakdown Risk DVT RISK: DVT Risk PATIENT NEEDS ACTIVE AND ONGOING THERAPEUTIC INTERVENTION OF MULTIPLE THERAPY DISCIPLINES, INCLUDING: - Dietary and Nutrition Adequate Nutrition. Nutritional Education. Nutritional Supplements. - Occupational Therapy Cognitive Retraining. Patient needs Occupational Therapy for a daily minimum of 1.5 hours at least 5 out of 7 days, to improve Activities of Daily Living, including: Eating, Grooming, Bathing, Dressing, Toileting, Toilet Transfers, Community Reintegration, Higher functional activities, Adaptive Equipme nt, Splinting, Household Tasks, and Other activities as determined. Visual Perceptual Training. - Physical Therapy Patient needs Physical Therapy for a daily minimum of 1.5 hours at least 5 out of 7 days, to improve: Mobility, Strengthening, Transfers, Stretching, ROM, Endurance, Ability to manage stairs, Gait, and Balance. PATIENT NEEDS CLOSE MEDICAL SUPERVISION BY A REHABILITATION PHYSICIAN FOR: Coordination of Treatment Team Medical and Co-Morbidity Management Wound Care Pain Management Bowel and Bladder Management PATIENT REQUIRES 24X7 REHAB NURSING FOR MEDICAL AND FUNCTIONAL MGT. OF THE FOLLOWING DEFICITS: Disease Management Medication Management Patient requires 24x7 Rehabilitation Nursing for: Pain Issues, Identifying and preventing risk factor s, Monitoring and reporting current medical conditions, Assisting with ambulation and transfer, Gale ting with all ADL-s, Teaching patients about disease process and medications, Family teaching, Provid ing safe environment, Bowel and Bladder Issues, Skin Integrity, and Medication Management Patient/Family Education Providing Safe Environment Skin Integrity PATIENT REQUIRES INTENSIVE, COORDINATED INTERDISCIPLINARY APPROACH TO REHAB: Arranging Home Equipment/Services Discharge Planning Family Intervention/Training Patient needs Dietary and Nutrition Services for: Adequate Nutrition, Nutritional Supplements, and Nu tritional Education Patient needs Costumer and/or Case Management for: Discharge Planning, Arranging Home Equipmen t or Services, and Family Interventions Costumer/Case Management PATIENT REHAB POTENTIAL: Jey MONTEJO is able and expected to receive 3 hours of individualized therapy daily on at least 5 of ev mili 7 days Jey MONTEJO's prognosis for significant practical improvement within a reasonable period of time appear s Good Expected level of measurable improvement will be of a practical value to Jey MONTEJO's functional capac ity or adaptations to impairments Has a viable Discharge Plan Medically appropriate; condition is sufficiently stable to participate in intensive rehab program DISCHARGE PLAN: - Estimated Length of Stay (days) 14. - Consensus on plan Discharge plan has been discussed with primary caregiver. Patient/Family is in agreement with the rosanne n. Primary caregiver is in agreement with the plan. - Patient/Family Goals Return home independently. - Planned Living Setting Upon Discharge Home, to live with Family/Relatives. Transitional Living. RECOMMENDED CARE LEVEL: IRF RECOMMENDATION DETAILS: Recommended Admission to Comprehensive Rehabilitation Program to Increase Functional [place] SCREENER'S COMPLETENESS CONFIRMATION: - Screening Confirmation The patient data collection on this preadmission screening form is finished PHYSICIANS REVIEW AND ADMISSION DETERMINATION Admit - Based on my review of the Pre-Admission Screening results, in my medical judgment and experie nce, I concur with the findings and recommend admission to [facility], as this patient requires an IRF level of care. SIGNATURE PANEL: Clinical Liaison - [electronically] signed by Lucy Barney on 08/19/2022 at 21:36 (CDT) Physician Reviewer - [electronically] signed by Dr. Dave King M.D. on 08/20/2022 at 07:47 (CDT )
--- OUTSIDE RECORDS SUMMARY | 2022-08-20 11:12 | XMS REPORT | Clinical Summary ---
:1955 Author Organization [facility] MD [facility] Address [address] [place] [address] Care Team Providers Name Role Phone Lusi Marti MD Unavailable Lakesha Watts MD Primary [...] Overview: 06/27/20: EK, SR. Borderline prolon ged [place] interval. Borderline rt axis deviation. nonspec ST [...] bro nchus or lung 09/19/2021 Travel after 08/20/2021 Immunizations Name Administration Dates Next Due Pfizer [...] SURGERY 04/13/2013 Right FEMORAL ARTERY STENT 10/09/2018 [place] [facility] EB[facility] 09/12/2020 N/A Procedure : BRONCHOSCOPY DX/TX INTERVENTION PERPH WITH EB US PERIPHERAL LES LESION-RADIAL TX OBE; Surgeon: Lavon Fitzgerald MD; Location: [place] IN PULM PROC; Service: P ULMONARY [place] [facility] EBUS GUIDED 09/12/2020 N/A Procedure : BRONCHOSCOPY [...] Body Mass Index 25.49 10/19/2020 9:30 AM SANDSTONE SPLITTER Plan of Treatment Date Type Specialty Care Team Description 08/30/2022 Ancillary Procedure Radiology Saul Julien tyshawn, PLASTER TENDER [address] [facility] [address] [place] [address] (Wo rk) 08/30/2022 Lab Lab Saul, Patti, PLASTER TENDER [address] [facility] [address] [place], [place] [address] (Wo rk) 08/30/2022 Office Visit Thoracic Medicine Carmencita Salamanca MD [address] [place], [place] [address] (Wo rk) Health Maintenance Due Date Last Done Comments COVID-19 Vaccination (3 - Pfizer risk 03/25/2021 02/25/2021 , 02/03/2021 series) Medical Devices Implanted Type Area Denture Contour Wire Specialist Device Identifier Shelf Exp iration Model / [...] 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 ASPARTATE Routine 01/23/2022 10:32 Primary mucinous Results for this AMINOTRANSFERASE AM SANDSTONE SPLITTER adenocarcinoma of proced ure are in lung <Right side> the result s section. ALANINE Routine 01/23/2022 10:32 Primary mucinous Results for this AMINOTRANSFERASE AM SANDSTONE SPLITTER adenocarcinoma of proced ure are in lung <Right side> the result s section. 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 ELECTROLYTE PANEL Routine 01/23/2022 10:32 Primary mucinous Re sults for this AM SANDSTONE SPLITTER adenocarcinoma of procedure are in lung <Right side> the result s section. 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 LACTATE DEHYDROGENASE Routine 01/23/2022 10:32 Primary mucinou s Results for this AM SANDSTONE SPLITTER adenocarcinoma of procedure are in lung <Right side> the result s section. 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 COMPREHENSIVE METABOLIC Routine 01/23/2022 10:32 Primary mucin ous PANEL AM SANDSTONE SPLITTER adenocarcinoma of lung <Right side> COMPLETE BLOOD COUNT W/ Routine 01/23/2022 10:32 Primary mucin ous DIFFERENTIAL AM SANDSTONE SPLITTER adenocarcinoma of lung <Right side> PETCT SUBSEQUENT Routine 01/23/2022 10:03 Primary mucinous Res ults for this TREATMENT STRATEGY AM SANDSTONE SPLITTER adenocarcinoma of proc edure are in lung [...] are i n the results section. after 08/20/2021 Results PETCT Subsequent Treatment Strategy (05/15/2022 12:09 [...] athologist Signature Creatinine 0.53 0.51 - 0.95 [facility] mg/dL REGION Comment: [facility], [address], [place] [address] Specimen Anatomical Collection Method Collection Time Receive d Time (Source) Location / / Volume Laterality Blood 05/15/2022 10:14 05/15/2022 AM CDT 11:36 AM CDT Jean Paul Arzate NP LAB BLOOD ORDERABLES Performing Organization Address City/State/[place] [address] [phone] (ABNORMAL) .CBC (05/15/2022 10:14 AM CDT)Only the most recent of3 resultswithin the time period is included. athologist Signature WBC 7.5 4.0 - 11.0 [facility] K/uL REGION Comment: All components of the CBC perfo rmed at [facility], [address], [place] [address] RBC 3.28 (L) 4.00 - 5.50 M/uL [facility] Comment: All components of the CBC perfo rmed at [facility], [address] [facility], [place] [address] Hgb 11.6 (L) 12.0 - 16.0 gm/dL [facility] Comment: As part of CBC or as an individ ual orderable testing performed at [facility], [address] [facility], [place] [address] Hct 34.3 (L) 37.0 - 47.0 % [facility] REG ION Comment: As part of CBC or as an individ ual orderable testing performed at [facility], [address] [facility], [place] [address] MCV 105 (H) 82 - 98 fL [facility] Comment: All components of the CBC perfo rmed at [facility], [address] [facility], [place] [address] MCH 35.4 (H) 27.0 - 31.0 pg [facility] JOSEFINA BRUNNER Comment: All components of the CBC perfo rmed at [facility], [address] [facility], [place] [address] MCHC 33.8 31.0 - 36.0 gm/dL [facility] Comment: All components of the CBC perfo rmed at [facility], [address] [facility], [place] [address] RDW-SD 53.3 (H) 35.1 - 46.3 fL [facility] JOSEFINA BRUNNER Comment: All components of the CBC perfo rmed at [facility], [address], [place] [address] RDW-CV 13.9 12.0 - 15.5 % [facility] REG ION Comment: All components of the CBC perfo rmed at [facility], [address] [facility], [place] [address] Platelet count 327 140 - 440 K/uL [facility] ON REGION Comment: As part of CBC or as an individ ual orderable testing performed at [facility], [address] [facility], [place] [address] MPV 9.6 4.0 - 10.4 fL [facility] REG ION Comment: All components of the CBC perfo rmed at [facility], [address] [facility] [place] [address] Specimen Anatomical Collection Method Collection Time Receive d Time (Source) Location / / Volume Laterality Blood 05/15/2022 10:14 05/15/2022 AM CDT 11:34 AM CDT Jean Paul Arzate NP LAB BLOOD ORDERABLES Performing Organization Address City/State/[place] [address] [facility] Glomerular Filtration Rate (05/15/2022 10:14 AM CDT)Only the most recent of3 resultswithin the time period is included. P athologist Signature eGFR-AA 114 >=60 [facility] mL/min/1.73 REGION sq. m Comment: Normal [...] performed at [facility], [address] [facility] [place] [address] eGFR-RD 99 >=60 mL/min/1.73 sq. m [facility] [...] performed at [facility], [address] [place] [address] Specimen Anatomical Collection Method Collection Time Receive d Time (Source) Location / / Volume Laterality Blood 05/15/2022 10:14 05/15/2022 AM CDT 11:36 AM CDT Jean Paul Arzate NP LAB BLOOD ORDERABLES Performing Organization Address City/State/ZIP Code Phon e Number [facility] [place] [address] [address] Fractionated Bilirubin (05/15/2022 10:14 AM CDT)Only the most recent of3 results within the time period is included. athologist Signature Bili Total 0.7 <=1.2 mg/dL [facility] Comment: Indocyanine Green (ICG) may cause falsel y elevated bilirubin results. Total and direct bilirubin must not be measured from samples containing indocyanine green. False elevation of total bilirubin can b e seen in patients with IgG concentrations above 28 g/L. Testing performed at [facility], [address] [facility], [place] [address] Bili Direct <0.2 <=0.3 mg/dL [facility] REG ION Comment: Indocyanine Green (ICG) may cause falsel y elevated bilirubin results. Total and direct bilirubin must not be measured from samples containing indocyanine green. Testing performed at [facility], [address], [place] [address] Bili Indirect See Note 0.0 - 0.9 mg/dL [facility] [place] [facility] Comment: Unable to calculate Indirect Bilirubin r esult due to some parameters are outside reportable range Testing performed at [facility], [address] [place] [address] Specimen Anatomical Collection Method Collection Time Receive d Time (Source) Location / / Volume Laterality Blood 05/15/2022 10:14 05/15/2022 AM CDT 11:36 AM CDT Jean Paul Arzate NP LAB BLOOD ORDERABLES Performing Organization Address City/State/[place] [phone] [address] (ABNORMAL) Differential (05/15/2022 10:14 AM CDT)Only the most recent of3 resultswithin the time period is included. athologist Signature Neutrophil % 69.3 (H) 42.0 - [facility] 66.0 % REGION Comment: As part of Differential perform ed at [facility], [address] [place] [address] Lymphocyte % 18.1 (L) 24.0 - 44.0 % [facility] REGION Comment: As part of Differential perform ed at [facility], [address] [place] [address] Monocyte % 11.0 (H) 2.0 - 7.0 % [facility] CHANCE ON Comment: As part of Differential perform ed at [facility], [address] [place] [address] Eosinophil % 0.9 (L) 1.0 - 4.0 % [facility] RE GION Comment: As part of Differential perform ed at [facility], [address] [place] [address] Basophil % 0.4 0.0 - 1.0 % [facility] CHANCE ON Comment: As part of Differential perform ed at [facility], [address] [place] [address] IGRE % 0.3 0.0 - 0.4 % [facility] REGIO N Comment: IGRE % count includes Metamyelocytes, My elocytes, and Promyelocytes. As part of Differential performed at [facility], [address] [place] [address] Neutrophil Abs 5.18 1.70 - 7.30 K/uL [facility] REGION Comment: As part of Differential perform ed at [facility], [address] [place] [address] Lymphocyte Abs 1.35 1.00 - 4.80 K/uL [facility] REGION Comment: As part of Differential perform ed at [facility], [address], [place] [address] Monocyte Abs 0.82 (H) 0.08 - 0.70 K/uL [facility] REG[facility] Comment: As part of Differential perform ed at [facility], [address] [place] [address] Eosinophil Abs 0.07 0.04 - 0.40 K/uL [facility] REGION Comment: As part of Differential perform ed at [facility], [address] [facility], [place] [address] Basophil Abs 0.03 0.00 - 0.10 K/uL [facility] Comment: As part of Differential perform ed at [facility], [address] [place] [address] IG Abs 0.02 0.00 - 0.04 K/uL [facility] REGION Comment: As part of Differential perform ed at [facility], [address] [facility], [place] [address] Specimen Anatomical Collection Method Collection Time Receive d Time (Source) Location / / Volume Laterality Blood 05/15/2022 10:14 05/15/2022 AM CDT 11:34 AM CDT Jean Paul Arzate NP LAB BLOOD ORDERABLES Performing Organization Address City/State/[place] [address] [address] BUN (05/15/2022 10:14 AM CDT)Only the most recent of3 resultswithin the time period is included. P athologist Signature BUN 14 6 - 23 [facility] mg/dL REGION Comment: Testing performed at [facility], [address] [facility], [place] [address] Specimen Anatomical Collection Method Collection Time Receive d Time (Source) Location / / Volume Laterality Blood 05/15/2022 10:14 05/15/2022 AM CDT 11:36 AM CDT Jaimy Huey HUMAN RESOURCES SERVICES SPECIALIST LAB BLOOD ORDERABLES Performing Organization Address City/[facility]/[place] [address] ALT (05/15/2022 10:14 AM CDT)Only the most recent of3 resultswithin the time period is included. P athologist Signature ALT 11 <=33 U/L [facility] Comment: Testing performed at [facility], [address], [place] [address] Specimen Anatomical Collection Method Collection Time Receive d Time (Source) Location / / Volume Laterality Blood 05/15/2022 10:14 05/15/2022 AM CDT 11:36 AM CDT Jean Paul Arzate HUMAN RESOURCES SERVICES SPECIALIST LAB BLOOD ORDERABLES Performing Organization Address City/[facility]/[place] [address] Aspartate Aminotransferase (05/15/2022 10:14 AM CDT)Only the most recent of3 resultswithin the time period is included. athologist Signature AST 20 <=32 U/L [facility] Comment: Testing performed at [facility], [address], [place] [address] Specimen Anatomical Collection Method Collection Time Receive d Time (Source) Location / / Volume Laterality Blood 05/15/2022 10:14 05/15/2022 AM CDT 11:36 AM CDT Jean Paul Arzate HUMAN RESOURCES SERVICES SPECIALIST LAB BLOOD ORDERABLES Performing Organization Address City/[facility]/[place] [address] Total Protein (05/15/2022 10:14 AM CDT)Only the most recent of3 resultswithin the time period is included. P athologist Signature Total Protein 7.7 6.4 - 8.3 [facility] g/dL REGION Comment: Testing performed at [facility], [address], [place] [address] Specimen Anatomical Collection Method Collection Time Receive d Time (Source) Location / / Volume Laterality Blood 05/15/2022 10:14 05/15/2022 AM CDT 11:36 AM CDT Jean Paul Arzate HUMAN RESOURCES SERVICES SPECIALIST LAB BLOOD ORDERABLES Performing Organization Address City/[facility]/[place] [address] (ABNORMAL) Alkaline Phosphatase (05/15/2022 10:14 AM CDT)Only the most recent of 3 resultswithin the time period is included. athologist Signature Alk Phos 151 (H) 35 - 104 [facility] U/L REGION Comment: Testing performed at [facility], [address] [facility], [place] [address] Specimen Anatomical Collection Method Collection Time Receive d Time (Source) Location / / Volume Laterality Blood 05/15/2022 10:14 05/15/2022 AM CDT 11:36 AM CDT Jean Paul Arzate HUMAN RESOURCES SERVICES SPECIALIST LAB BLOOD ORDERABLES Performing Organization Address [facility] [place] [address] (ABNORMAL) Magnesium Level (05/15/2022 10:14 AM CDT)Only the most recent of3 resultswithin the time period is included. athologist [facility] Magnesium 1.4 (L) 1.6 - 2.6 [facility] mg/dL REGION Comment: Testing performed at [facility], [address] [facility], [place] [address] Specimen Anatomical Collection Method Collection Time Receive d Time (Source) Location / / Volume Laterality Blood 05/15/2022 10:14 05/15/2022 AM CDT 11:36 AM CDT Jean Paul Arzate HUMAN RESOURCES SERVICES SPECIALIST LAB BLOOD ORDERABLES Performing Organization Address City/[facility]/[place] [address] (ABNORMAL) Glucose Level (05/15/2022 10:14 AM CDT)Only the most recent of3 resultswithin the time period is included. P athologist Signature Glucose Level 106 (H) 70 - 99 [facility] mg/dL REGION Comment: Effective 06/26/16, the glucose reference intervals have been updated based on [place] Diabetes [employer] guidelines (Standards of Medical Care [...] performed at [facility], [address] [place] [address] Specimen Anatomical Collection Method Collection Time Receive d Time (Source) Location / / Volume Laterality Blood 05/15/2022 10:14 05/15/2022 AM CDT 11:36 AM CDT Jean Paul Arzate NP LAB BLOOD ORDERABLES Performing Organization Address City/State/[place] [address] Calcium Level (05/15/2022 10:14 AM CDT)Only the most recent of3 resultswithin the time period is included. athologist Signature Calcium Lvl 10.2 8.4 - 10.2 [facility] mg/dL REGION Comment: Testing performed at [facility], [address] [facility], [place] [address] Specimen Anatomical Collection Method Collection Time Receive d Time (Source) Location / / Volume Laterality Blood 05/15/2022 10:14 05/15/2022 AM CDT 11:36 AM CDT Jean Paul Arzate NP LAB BLOOD ORDERABLES Performing Organization Address City/[facility]/[place] [address] Albumin Level (05/15/2022 10:14 AM CDT)Only the most recent of3 resultswithin the time period is included. P athologist Signature Albumin Lvl 4.4 3.5 - 5.2 [facility] gm/dL REGION Comment: Testing performed at [facility], [address] [facility], [place] [address] Specimen Anatomical Collection Method Collection Time Receive d Time (Source) Location / / Volume Laterality Blood 05/15/2022 10:14 05/15/2022 AM CDT 11:36 AM CDT Jean Paul Arzate NP LAB BLOOD ORDERABLES Performing Organization Address [facility]/[place] [address] [address] (ABNORMAL) Electrolyte Panel (05/15/2022 10:14 AM CDT)Only the most recent of3 resultswithin the time period is included. athologist [facility] Sodium Lvl 139 136 - 145 [facility] mEq/L REGION Comment: Testing performed at [facility], [address] [facility], [place] [address] Potassium Lvl 3.4 (L) 3.5 - 5.1 mEq/L [facility] ON REGION Comment: Testing performed at [facility], [address] [facility], [place] [address] Chloride 97 (L) 98 - 107 mEq/L [facility] RE GION Comment: Testing performed at [facility], [address] [facility] [place] [address] CO2 30 (H) 22 - 29 mEq/L [facility] REG ION Comment: Testing performed at [facility], [address] [facility], [place] [address] Anion Gap 12 4 - 14 mEq/L [facility] CHANCE ON Comment: Testing performed at [facility], [address] [facility], [place] [address] Specimen Anatomical Collection Method Collection Time Receive d Time (Source) Location / / Volume Laterality Blood 05/15/2022 10:14 05/15/2022 AM CDT 11:36 AM CDT Jean Paul Arzate NP LAB BLOOD ORDERABLES Performing Organization Address City/State/[place] [address] [facility] (01/23/2022 10:32 AM SANDSTONE SPLITTER) [facility] 171 135 - 214 [facility] U/L Comment: Results greater than 1651 U/L may not be reliable due to matrix effect with extended dilution as it exceeds the phosphoric acid supervisor s recommended limit. Caution should be exercised when interpreting such fouzia ues and done in conjunction with clinica l context. [facility] [address] [facility], [place] [address] Specimen Anatomical Collection Method Collection Time Receive d Time (Source) Location / / Volume Laterality Blood 01/23/2022 10:32 01/23/2022 AM SANDSTONE SPLITTER 10:39 AM SANDSTONE SPLITTER Jean Paul Arzate NP LAB BLOOD ORDERABLES Performing Organization Address City/[facility]/ZIP [facility] [place] [address] [address] [facility] [place] [address] [address] [facility] (ABNORMAL) POC Glucose Screen (09/19/2021 11:21 AM [...] Sample Type Venous POC [facility] Performing Lab [facility] POC [facility] Comment: Diagnostic Imaging [facility], [address] [place] [address]; Point of Care Center Director Lead Teacher: Meron Alston MD Specimen Anatomical Collection Method Collection Time Receive d Time (Source) Location / / Volume Laterality Blood 09/19/2021 11:21 09/19/2021 AM CDT 11:21 AM CDT Carmencita Salamanca MD POCT ORDERABLES - DEVICE Performing Organization Address City/[facility]/ZIP [facility] Phon e Number POC [facility] after 08/20/2021 Insurance Payer Benefit Plan / Subscriber ID Effective Dates Phone Addre ss Type Group [employer] [employer] POS [id number] 1995-Present [address] [place] [address] Guarantor Name Account Type Relation to Date of Phone Bill ing Patient Address Jesusita Rodriguez Personal/Family Self 1955 [address] (Home) [place] [address] Med Rodriguezma Personal/Family Self 1955 [address]) [place] [address] Care Teams Sleeve Turner Relationship Specialty Start Date End Date Luis Marti MD PCP - External Internal Medicine 05/23/[address] [place] [phone] Lakesha Watts MD PCP - General Cardiothoracic Surgery 05/23/[address] [place] [id number] Medardo Johnson 09/20/20 MD [address]
--- OUTSIDE RECORDS SUMMARY | 2022-08-20 11:14 | XMS REPORT | Continuity of Care Document ---
:1955 Author Organization [facility] t Address [address] [place] [address] Care Team Providers Name Role Phone Lakesha [...] Policy Number Effective Date Expiration Date S our [place] PPO POS [id number] 1995 00:00:00 Problems Condition Condition Condition Status Onset Resolution Last Treating Co mments Source Name Details Category Date Date Treatment Clinician Date Hyposmolal Hyposmolal Disease Active Last U nivers ity and/or ity and/or 12-13 Assessmen ity of hyponatrem hyponatrem 00:00: t & Plan: [place] ia ia 00 Formattin MD g of [...] [place] noma of noma of lung lung [facility] Claustroph Claustroph Disease Active 2019-12 U nivers obia obia 0-07 ity of 00:00: [place] [facility] Other Other Disease Active Overview: Univer s specified specified 06-27 Formattin i ty of preoperati preoperati 00:00: g of this [place] ve ve 00 note examinatio examinatio might be Ace santana different n from the Cancer original. Center 06/27/20: EK, SR. Borderlin e prolonged IN interval. Borderlin e rt axis deviation . [...] advised for further assessmen t. 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 [place] Degenerat ion Menopause Menopause Disease Active Uni [...] ity of anticoagul anticoagul g of this [place] ant ant note might be Anderso different n from the Cancer original. [place] xarelto Arterioscl Arterioscl Disease Active Overview : Univers erosis of erosis of Formattin i ty of carotid carotid g of this [place] artery artery note might be Anderso different n from the Cancer original. [place] carotid artery stent lacement 2008 Coronary Coronary Disease Active [place] [facility] arterioscl arterioscl it y of erosis erosis [place] MD [facility] Allergies, Adverse Reactions, Alerts Allergy Allergy Status Severity Reaction(s) Onset Inactive Treating Comm ents Source Name Type Date Date Clinician Tomas Bocanegra Active Other (See 2019-12 migraine Univers ine ty to Comments) 01-01 ity of Analogue adverse 00:00: [place] s reaction 00 MD [facility] Antihist Drug Active GI Univers amines - Allergy Intolerance 06-07 it y of Alkylami 00:00: [place] ne 00 MD [facility] etodolac DA Active SV 2017-12 [facility] 12-07 [facility] 00:00: [address] Etodolac Drug Active Diarrhea 2017-12 Extreme Unive rs Allergy 12-07 diarrhea ity of 00:00: [place] 00 MD [facility] etodolac DA Active SV DIARRHEA 2017-12 [facility] 1-07 [place] 00:00: [address] ibuprofe DA Active SV 2017-12 [facility] n 0-20 [place] 00:00: [address] nabumeto DA Active SV 2017-12 [facility] ne 0-20 [place] 00:00: [address] antiflam DA Active SV 2017-12 [facility] matory 0-20 [place] medicati 00:00: [address] morphine DA Active SV nausea/vomit 2017-12 HC A ing 0-20 [place] 00:00: [address] codeine DA Active SV nausea/vomit 2017-12 [facility] ing 0-20 [place] 00:00: [address] hydrocod DA Active SV nausea/vomit 2017-12 HC A one ing 0-20 [place] 00:00: [address] ibuprofe DA Active SV nausea/vomit 2017-12 HC A n ing 0-20 [place] 00:00: [address] nabumeto DA Active SV nausea/vomit 2017-12 HC A ne ing 0-20 West 00:00: [address] Codeine Drug Active GI 2017-12 Other Univers Allergy Intolerance 0-20 reaction( i ty of 00:00: s): nausea/vo MD robin Bello [facility] Hydrocod Drug Active GI 2017-12 Other Univers one Allergy Intolerance 0-20 reaction( i ty of 00:00: s): nausea/vo MD robin eBllo [facility] Ibuprofe Drug Active GI 2017-12 Other Univers n Allergy Intolerance 0-20 reaction( i ty of 00:00: s): nausea/vo MD robin santana [facility] Morphine Drug Active GI 2017-12 Fuzzy Univers Allergy Intolerance 0-20 head, not i ty of 00:00: sure [place] where she MD Finesse Bello reaction( n s): Cancer nausea/vo Center [facility] Nabumeto Drug Active 2017-12 Other Univers ne Allergy 0-20 reaction( ity of 00:00: s): nausea/vo MD robin santana [facility] morphine DA Active SV 2017-12 [facility] 0-20 [place] 00:00: [address] codeine DA Active SV 2017-12 [facility] 0-20 [place] 00:00: [address] hydrocod DA Active SV 2017-12 [facility] one 0-20 [facility] 00:[facility]: [facility] ANTIHIST DA Active U [facility] AMINE 05-02 [place] 00:00: [address] No Known DA Active U [facility] Contrast 05-02 [place] Allergie 00:00: [address] No Known DA Active U [facility] Food 05-02 [place] Allergie 00:00: [address] No Known DA Active U [facility] Other 05-02 [place] Allergie 00:00: [address] Social History Social Habit Start Date Stop Date Quantity Comments Source Alcohol intake 2022-01-22 2022-01-22 Current drinker Unive rsity of 00:00:00 00:00:00 of alcohol [place] MD Philip [facility]erson ([facility] Cigarettes smoked 2020-06-07 2020-06-07 Univers ity of current (pack per 00:00:00 00:00:00 [place] Fortunato Choi ) - Reported Cancer Ce nter Cigarette 2020-06-07 2020-06-07 University of pack-years 00:00:00 00:00:00 [place] MD Philip sanderson [facility] Tobacco use and 2020-06-07 2020-06-07 Smokeless Universit y of exposure 00:00:00 00:00:00 tobacco non-user [facility] Tobacco Comment 2020-06-07 2020-06-07 No longer Universit y of 00:00:00 00:00:00 smokes. [place] MD Philip sanderson [facility] History of tobacco 1983-02-17 2011-06-19 Cigarette Smoker University of use 00:00:00 00:00:00 [place] MD Philip sanderson [facility] Sex Ass[birth year] Universit y of 00:00:00 00:00:00 [place] MD Philip sanderson [facility] Smoking Status Start Date Stop Date Source Ex-smoker 2020-06-07 00:00:00 2020-06-07 00:00:00 Universi ty of [facility] Medications Ordered Filled Start Stop Current Ordering Indication Dosage Frequency Signature Comments Components Source Medication Medication Date Date Medication? Clinician (SIG) Name Name cholecalcif Yes 2000U Take 2,000 Univers ramírez, 6-15 Units by ity of vitamin D3, 14:39: mouth [place] 25 mcg 02 every MD (1,000 other day. Anderso unit) n capsule Cancer Center cyanocobala Yes 1000ug Take 1,000 Univers min 6-15 mcg by ity of (VITAMIN 14:39: mouth [place] B-12) 1000 02 every MD mcg tablet other day. And [facility] rosuvastati Yes 20mg Take 20 mg Univers n (CRESTOR) 6-15 by mouth ity of 20 mg 14:39: daily. [place] tablet 02 [facility] loperamide Yes 2mg Take 2 mg [place] (IMODIUM 6-15 by mouth ity of A-D) 2 mg 14:39: as needed Doug as tablet 02 for MD diarrhea. [facility] cholecalcif Yes 2000U Take 2,000 Univers ramírez, 6-15 Units by ity of vitamin D3, 14:39: mouth [place] 25 mcg 02 every MD (1,000 other day. Anderso unit) capsule [facility] cyanocobala Yes 1000ug Take 1,000 Univers min 6-15 mcg by ity of (VITAMIN 14:39: mouth [place] B-12) 1000 02 every MD mcg tablet other day. And [facility] rosuvastati Yes 20mg Take 20 mg Univers n (CRESTOR) 6-15 by mouth ity of 20 mg 14:39: daily. [place] tablet 02 [facility] loperamide Yes 2mg Take 2 mg [place] (IMODIUM 6-15 by mouth ity of A-D) 2 mg 14:39: as needed Doug as tablet 02 for MD diarrhea. [facility] cholecalcif Yes 2000U Take 2,000 Univers ramírez, 6-15 Units by ity of vitamin D3, 14:39: mouth [place] 25 mcg 02 every MD (1,000 other day. Anderso unit) capsule [facility] cyanocobala Yes 1000ug Take 1,000 Univers min 6-15 mcg by ity of (VITAMIN 14:39: mouth [place] B-12) 1000 02 every MD mcg tablet other day. And [facility] rosuvastati Yes 20mg Take 20 mg Univers n (CRESTOR) 6-15 by mouth ity of 20 mg 14:39: daily. [place] tablet 02 MD [facility] loperamide Yes 2mg Take 2 mg [place] (IMODIUM 6-15 by mouth ity of A-D) 2 mg 14:39: as needed Doug as tablet 02 for diarrhea. [facility] bisoprolol 2020-12- No daily. [facility] (ZEBETA) 5 0-20 10-20 ity of mg tablet 15:16: 00:00 [place] 30 :00 [facility] bisoprolol 2020-12- No daily. [facility] (ZEBETA) 5 0-20 10-20 ity of mg tablet 15:16: 00:00 [place] 30 :00 [facility] bisoprolol 2020-12- No daily. [place] [facility] (ZEBETA) 5 0-20 10-20 ity of mg tablet 15:16: 00:00 [place] 30 :00 [facility] mupirocin 2020- No Malignant APPLY [...] Center specified triamcinolo 2020- No Rash Apply [facility] ne 1-31 10-20 topically ity of (KENALOG) 00:00: 00:00 [...] polo Bello daily. n Cancer Center amLODIPine 2019- Yes twice Univer s (NORVASC) 5 1-19 daily. ity of mg tablet 00:00: 00 MD [facility] amLODIPine 2019- Yes twice Univer s (NORVASC) 5 1-19 daily. ity of mg tablet 00:00: 00 MD [facility] amLODIPine 2019- Yes twice Univer s (NORVASC) 5 1-19 daily. ity of mg tablet 00:00: 00 MD [facility]o n [facility] spironolact 2019-12- No daily. Uni vers one 12-03 10-20 ity of (ALDACTONE) 00:00: 00:00 [place] 25 mg 00 :00 MD tablet [facility] spironolact 2019-12- No daily. Uni vers one 12-03 10-20 ity of (ALDACTONE) 00:00: 00:00 [place] 25 mg 00 :00 tablet [facility] spironolact 2019-12- No daily. Uni vers one 12-03 10-20 ity of (ALDACTONE) 00:00: 00:00 [place] 25 mg 00 :00 MD tablet [facility] alendronate 2020-0 Yes once a Univ ers (FOSAMAX) 4-29 week. ity of 70 mg 00:00: [place] tablet 00 [facility] alendronate 2020-0 Yes once a Univ ers (FOSAMAX) 4-29 week. ity of 70 mg 00:00: [place] tablet 00 [facility] alendronate 2020-0 Yes once a Univ ers (FOSAMAX) 4-29 week. ity of 70 mg 00:00: [place] tablet 00 [facility] Immunizations Ordered Filled Immunization Date Status Comments Sourc e Immunization Name Name [facility] SARS-CoV-2 2021-02-25 Completed Univer sity of Vaccination (Purple 00:00:00 [facility] [place] Pfizer SARS-CoV-2 2021-02-25 Completed Univer sity of Vaccination (Purple 00:00:00 [facility] Pfizer SARS-CoV-2 2021-02-25 Completed Univer sity of Vaccination (Purple 00:00:00 [facility] [place] Pfizer SARS-CoV-2 2021-02-03 Completed Univer sity of Vaccination (Purple 00:00:00 [facility] Pfizer SARS-CoV-2 2021-02-03 Completed Univer sity of Vaccination (Purple 00:00:00 [facility] Pfizer SARS-CoV-2 2021-02-03 Completed Univer sity of Vaccination (Purple 00:00:00 [facility] Vital Signs Vital Name Observation Time Observation Value Comments Source WEIGHT 2020-09-20 10:48:12 70.4 kg WEIGHT 2020-09-06 08:50:00 71.1 kg WEIGHT 2020-06-27 13:44:00 71.2 kg HEIGHT 2020-06-07 00:00:00 162 cm WEIGHT 2020-06-07 00:00:00 72 kg Systolic blood 2022-05-15 19:18:00 152 mm[Hg] Univer sity of pressure [place] [facility] Diastolic blood 2022-05-15 19:18:00 69 mm[Hg] Unive rsity of pressure [place] MD [facility] Heart rate 2022-05-15 19:18:00 77 /min Universi ty of [place] MD [facility] Body temperature 2022-05-15 19:18:00 36.78 [place] Univ ersity of [place] MD [facility] Respiratory rate 2022-05-15 19:18:00 18 /min Univ ersity [facility] MD [facility] Body weight 2022-05-15 19:18:00 66.9 kg Universi ty of [place] MD [facility] BMI 2022-05-15 19:18:00 25.49 kg/m2 Universi ty of [place] MD [facility] Procedures Procedure Date / Time Performing Clinician Source Performed PETCT SUBSEQUENT TREATMENT 2022-05-15 17:09:55 [facility] er Center COMPLETE BLOOD COUNT W/ 2022-05-15 15:14:00 Jean Paul Olivia [facility] DIFFERENTIAL [facility] er Center COMPREHENSIVE METABOLIC 2022-05-15 15:14:00 Jean Paul Olivia [facility] PANEL [facility] er Center MAGNESIUM LEVEL 2022-05-15 15:14:00 Jean Paul Olivia [facility] er Center Results CBC 2022-05-15 15:14:00 Jean Paul Olivia Gr[place] o f [facility] er Center MANUAL DIFFERENTIAL 2022-05-15 15:14:00 Jean Paul Olivia [facility] er Center GLUCOSE LEVEL 2022-05-15 15:14:00 Jean Paul Olivia o f [facility] er Center BLOOD UREA NITROGEN 2022-05-15 15:14:00 Jean Paul [facility] ELECTROLYTE PANEL 2022-05-15 15:14:00 Jean Paul Olivia [facility] SERUM CREATININE 2022-05-15 15:14:00 Jean Paul Olivia [facility] .GLOMERULAR FILTRATION 2022-05-15 15:14:00 Jean Paul Olivia [facility] [place] RATE [facility] CALCIUM LEVEL TOTAL 2022-05-15 15:14:00 Jean Paul Olivia [facility] ALBUMIN LEVEL 2022-05-15 15:14:00 Jean Paul Olivia [facility] ALKALINE PHOSPHATASE 2022-05-15 15:14:00 Jean Paul Olivia [facility] ALANINE AMINOTRANSFERASE 2022-05-15 15:14:00 Jean Paul Olivia [facility] ASPARTATE AMINOTRANSFERASE 2022-05-15 15:14:00 Jean Paul [facility] TOTAL PROTEIN 2022-05-15 15:14:00 Jean Paul Olivia [facility] FRACTIONATED BILIRUBIN 2022-05-15 15:14:00 Jean Paul Olivia [facility] COMPLETE BLOOD COUNT W/ 2022-01-23 16:32:00 Jean Paul Olivia [facility] DIFFERENTIAL [facility] COMPREHENSIVE METABOLIC 2022-01-23 16:32:00 Jean Paul Olivia [facility] PANEL [facility] MAGNESIUM LEVEL 2022-01-23 16:32:00 Jean Paul Olivia [facility] [place] Center LACTATE DEHYDROGENASE 2022-01-23 16:32:00 Jean Paul Olivia [facility] sity [facility] Results CBC 2022-01-23 16:32:00 Jean Paul Olivia [facility] MANUAL DIFFERENTIAL 2022-01-23 16:32:00 Jean Paul Olivia [facility] Center GLUCOSE LEVEL 2022-01-23 16:32:00 Jean Paul Olivia [facility] BLOOD UREA NITROGEN 2022-01-23 16:32:00 Jean Paul [facility] ELECTROLYTE PANEL 2022-01-23 16:32:00 Jean Paul Olivia [facility] SERUM CREATININE 2022-01-23 16:32:00 Jean Paul Olivia [facility] .GLOMERULAR FILTRATION 2022-01-23 16:32:00 Jean Paul Olivia [facility] RATE [facility] CALCIUM LEVEL TOTAL 2022-01-23 16:32:00 Jean Paul [facility] ALBUMIN LEVEL 2022-01-23 16:32:00 Jean Paul Olivia [facility] ALKALINE PHOSPHATASE 2022-01-23 16:32:00 Jean Paul Olivia [facility] ALANINE AMINOTRANSFERASE 2022-01-23 16:32:[address] [facility] ASPARTATE AMINOTRANSFERASE 2022-01-23 16:32:00 Jean Paul [address] [facility] TOTAL PROTEIN 2022-01-23 16:32:00 Jean Paul Olivia [facility] FRACTIONATED BILIRUBIN 2022-01-23 16:32:00 Jean Paul Olivia [facility] [place] PETCT SUBSEQUENT TREATMENT 2022-01-23 16:03:30 Jean Paul Olivia [facility] PETCT SUBSEQUENT TREATMENT 2021-09-19 17:48:13 Tu[facility] ASPARTATE AMINOTRANSFERASE 2021-09-19 16:25:00 [facility] TOTAL PROTEIN 2021-09-19 16:25:00 Tu, Estela [facility] FRACTIONATED BILIRUBIN 2021-09-19 16:25:00 Estela Salamanca [facility] [place] COMPLETE BLOOD COUNT W/ 2021-09-19 16:25:00 Tu, [facility] DIFFERENTIAL [facility] COMPREHENSIVE METABOLIC 2021-09-19 16:25:00 Tu, [facility] PANEL [facility] MAGNESIUM LEVEL 2021-09-19 16:25:00 Tu, [facility] Results CBC 2021-09-19 16:25:00 Tu, [facility] MANUAL DIFFERENTIAL 2021-09-19 16:25:00 Tu, [facility] GLUCOSE LEVEL 2021-09-19 16:25:00 Tu, [facility] BLOOD UREA NITROGEN 2021-09-19 16:25:00 Tu, [facility] ELECTROLYTE PANEL 2021-09-19 16:25:00 Tu, [facility] SERUM CREATININE 2021-09-19 16:25:00 Tu, [facility] .GLOMERULAR FILTRATION 2021-09-19 16:25:00 Tu, [facility] RATE [facility] CALCIUM LEVEL TOTAL 2021-09-19 16:25:00 Tu, [facility] ALBUMIN LEVEL 2021-09-19 16:25:00 Tu, [place] [facility] ALKALINE PHOSPHATASE 2021-09-19 16:25:00 Tu, [facility] ity [facility] ALANINE AMINOTRANSFERASE 2021-09-19 16:25:00 Tu, Estela [facility] POC GLUCOSE SCREEN 2021-09-19 16:21:00 Tu, Estela [facility] y [facility] Plan of Care Planned Activity Planned Date Details Comments Source Future Scheduled 2022-08-13 COVID-19 Vaccination Uni versity of [place] Test 10:17:12 (3 - Pfizer risk MD Jimbo [facility] series) [code = Center COVID-19 Vaccination (3 - Pfizer risk series)] Future Scheduled 2022-08-13 COVID-19 Vaccination Uni versity of [place] Test 10:17:12 (3 - Pfizer risk MD Jimbo Cancer series) [code = Center COVID-19 Vaccination (3 - Pfizer risk series)] Future Scheduled 2022-06-04 COVID-19 Vaccination Uni versity of [place] Test 12:17:41 (3 - Pfizer risk MD Jimbo Cancer series) [code = Center COVID-19 Vaccination (3 - Pfizer risk series)] Encounters Start End Encounter Admission Attending Care Care Encounter Source Date/Time Date/Time Type Type Clinicians Facility Department ID 2020-07-05 Outpatient MDA MDA [id number] 11:29:30 Anderso n 2020-07-03 Outpatient SYSTEM, MDA MDA [id number] 11:53:52 PROVIDER Percy o n 2020-06-28 Outpatient MDA MDA [id number] 08:32:30 Anderso n 2020-06-26 Outpatient GARCIA, MDA MDA [id number] 16:03:21 [facility] Anderso n 2020-06-23 Outpatient ROBSON, MDA MDA [id number] 13:17:57 LORETA Philip so n 2020-06-13 Outpatient MDA MDA [id number] 10:17:31 Anderso n 2020-05-23 Outpatient SYSTEM, MDA MDA [id number] 15:10:39 PROVIDER Percy o n 2022-08-07 2022-08-07 Orders Jitendra, 1.2.840.1 [id number] Univers 00:00:00 00:00:00 Only Mallory 80920.1.1 ity of 3.412.2.7 [place] .3.004931 MD [facility] 2022-08-07 2022-08-07 Orders Jitendra, 1.2.840.1 [id number] Univers 00:00:00 00:00:00 Only Mallory 47908.1.1 ity of 3.412.2.7 [place] .3.780276 MD [facility] 2022-05-15 2022-05-15 Office Estela Salamanca 1.2.840.1 [id number] Univers 15:00:00 15:23:06 Visit 01131.1.1 ity of 3.412.2.7 [place] .3.214595 MD [facility] 2022-05-15 2022-05-15 Office Estela Salamanca 1.2.840.1 [id number] Univers 15:00:00 15:23:06 Visit 50215.1.1 ity of 3.412.2.7 [place] .3.249336 MD [facility] 2022-05-15 2022-05-15 Ancillary Jean Paul Olivia 1.2.840.1 [id number] Univers 10:00:00 12:30:00 Procedure 81550.1.1 it y of 3.412.2.7 [place] .3.438677 MD [facility] 2022-05-15 2022-05-15 Ancillary Jean Paul Olivia 1.2.840.1 [id number] Univers 10:00:00 12:30:00 Procedure 62900.1.1 it y of 3.412.2.7 [place] .3.560132 MD [facility] 2022-05-15 2022-05-15 Documentat Jitendra, 1.2.840.1 [id number] Univers 00:00:00 00:00:00 ion Moushumi 95584.1.1 ity of 3.412.2.7 [place] .3.483730 MD [facility] 2022-05-15 2022-05-15 Travel 1.2.840.1 1.2.545.504 [id number] Univers 00:00:00 00:00:00 94375.1.1 350.1.13.41 ity of 3.412.2.7 2.[place]7.3.698 [place] .3.550946 084.8 MD [facility] 2022-05-15 2022-05-15 Documentat Jitendra, 1.2.840.1 [id number] Univers 00:00:00 00:00:00 ion Moushumi 17401.1.1 ity of 3.412.2.7 [place] .3.230219 MD [facility] 2022-05-152022-05-15 Travel 1.2.840.1 1.2.774.414 [id number] Univers 00:00:00 00:00:00 58227.1.1 350.1.13.41 ity of 3.412.2.7 2.[place].7.3.698 [place] .3.310390 084.8 MD [facility] 2022-01-23 2022-01-23 Office EL Estela Salamanca 1.2.840.1 [id number] Univers 15:00:00 15:15:00 Visit 12270.1.1 ity of 3.412.2.7 [place] .3.931318 MD [facility] 2022-01-23 2022-01-23 Office Estela Salamanca 1.2.840.1 [id number] Univers 15:00:00 15:15:00 Visit 77848.1.1 ity of 3.412.2.7 [place] .3.832562 MD [facility] 2022-01-23 2022-01-23 Outpatient EL MDA MDA [id number] MD 10:32:23 10:34:33 [facility] 2022-01-23 2022-01-23 Ancillary EL 1.2.840.1 [id number] Univers 08:00:00 10:30:00 Procedure 31015.1.1 it y of 3.412.2.7 [place] .3.818703 MD [facility] 2022-01-23 2022-01-23 Ancillary 1.2.840.1 [id number] Univers 08:00:00 10:30:00 Procedure 76570.1.1 it y of 3.412.2.7 [place] .3.144903 MD [facility] 2022-01-23 2022-01-23 Travel 1.2.840.1 1.2.387.579 [id number] Univers 00:00:00 00:00:00 19598.1.1 350.1.13.41 ity of 3.412.2.7 2.[place].7.3.698 [place] .3.901991 084.8 MD Carballo8 [facility] 2022-01-23 2022-01-23 Travel 1.2.840.1 1.2.221.506 [id number] Univers 00:00:00 00:00:00 03491.1.1 350.1.13.41 ity of 3.412.2.7 2.2.7.3.698 [place] .3.932329 084.8 MD [facility] 2021-10-10 2021-10-10 Office Lakesha Thomas 1.2.840.1 [id number] Univers 08:30:00 08:46:32 Visit Christi Sofia 96185.1.1 ity of 3.412.2.7 [place] .3.105437 MD [facility] 2021-10-10 2021-10-10 Office Lakesha Watts 1.2.840.1 [id number] Univers 08:30:00 08:46:32 Visit Sofia Barraza 39265.1.1 ity of 3.412.2.7 [place] .3.530504 MD Carballo8 [facility] 2021-10-10 2021-10-10 Travel 1.2.840.1 1.2.871.319 [id number] Univers 00:00:00 00:00:00 17886.1.1 350.1.13.41 ity of 3.412.2.7 2.2.7.3.698 [place] .3.538696 084.8 MD [facility] 2021-10-10 2021-10-10 Travel 1.2.840.1 [id number] [id number] Univers 00:00:00 00:00:00 17857.1.1 350.1.13.41 ity of 3.412.2.7 [place].3.698 [place] .3.548063 084.8 MD [facility] 2021-09-19 2021-09-19 Office Estela Kim 1.2.840.1 [id number] Univers 15:15:00 15:30:00 Visit 84337.1.1 ity of 3.412.2.7 [place] .3.993270 MD [facility] 2021-09-19 2021-09-19 Office Caterina Salamancaet 1.2.840.1 [id number] Univers 15:15:00 15:30:00 Visit 26508.1.1 ity of 3.412.2.7 [place] .3.422076 MD [facility] 2021-09-19 2021-09-19 Ancillary Caterina Kimet 1.2.840.1 [id number] Univers 11:00:00 13:30:00 Procedure 50315.1.1 it y of 3.412.2.7 [place] .3.645270 MD [facility] 2021-09-19 2021-09-19 Ancillary Cheikh Estela 1.2.840.1 [id number] Univers 11:00:00 13:30:00 Procedure 00014.1.1 it y of 3.412.2.7 [place] .3.058677 MD [facility] 2021-09-19 2021-09-19 Outpatient CATERINA SALAMANCAET MDA [facility] [id number] 10:31:15 10:31:15 [facility] 2021-09-19 2021-09-19 Travel 1.2.840.1 [id number] [id number] Univers 00:00:00 00:00:00 51482.1.1 350.1.13.41 ity of 3.412.2.7 2.[place].7.3.698 [place] .3.295733 084.8 MD [facility] 2021-09-19 2021-09-19 Travel 1.2.840.1 1.2.518.774 [id number] Univers 00:00:00 00:00:00 21520.1.1 350.1.13.41 ity of 3.412.2.7 2.[place].7.3.698 [place] .3.628817 084.8 .8 [facility] 2021-06-06 2021-06-06 Outpatient ESTELA KIM MDA MDA [id number] 09:36:19 09:36:19 [facility] 2021-06-06 2021-06-06 Outpatient CELINA BARRAZA MDA MDA [id number] 08:58:18 09:27:46 SOFIA Greer o max 2021-06-06 2021-06-06 Outpatient JEAN PAUL CORMIER MDA MDA [id number] 08:38:45 08:53:53 [facility] 2021-06-05 2021-06-05 Outpatient JEAN PAUL CORMIER MDA MDA [id number] 15:30:44 15:30:44 [facility] 2020-09-20 2020-09-20 Outpatient ESTELA KIM MDA MDA [id number] 14:00:41 14:11:49 [facility] 2020-09-20 2020-09-20 Outpatient CELINA BARRAZA MDA MDA [id number] 12:38:39 14:08:08 SOFIA Montelongoers o max 2020-09-20 2020-09-20 Outpatient CELINA WATTS MDA MDA [id number] 10:41:33 11:05:43 LAKESHA Greer o max 2020-09-20 2020-09-20 Outpatient ESTELA KIM MDA MDA [id number] 11:04:03 11:04:03 [facility] 2020-09-12 2020-09-12 Outpatient CELINA CARDENAS, MDA Pul Med [id number] 07:05:00 13:50:00 SANDEE Greer o max 2020-09-12 2020-09-12 Outpatient CELINA CARDENAS, MDA MDA [id number] 07:43:13 07:43:13 SANDEE Greer o max 2020-09-11 2020-09-11 Outpatient CELINA FOSS MDA MDA [id number] 10:43:27 23:59:00 EB Greer o max 2020-09-11 2020-09-11 Outpatient EL PRUDENCE, MDA MDA [id number] 12:15:33 12:15:33 EB santana 2020-09-11 2020-09-11 Outpatient EL RONALD, MDA MDA [id number] 11:02:26 12:10:53 SANDEE santana 2020-09-07 2020-09-07 Outpatient EL ELLIE, MDA MDA [id number] 11:32:06 11:32:06 TOM Palacios so max 2020-09-06 2020-09-06 Outpatient EL ANTONOFF, MDA MDA [id number] 08:38:10 09:13:32 LAKESHA santana 2020-09-05 2020-09-05 Outpatient EL ELLIE, MDA MDA [id number] MD 09:46:29 09:46:29 TOM santana 2020-06-30 2020-06-30 Outpatient EL MDA MDA [id number] 14:08:23 23:59:00 Percy santana 2020-06-30 2020-06-30 Outpatient EL MDA MDA [id number] 12:13:14 14:07:00 Percy santana 2020-06-30 2020-06-30 Outpatient EL ELLIE, MDA MDA [id number] MD 09:14:58 12:12:00 TOM santana 2020-06-30 2020-06-30 Outpatient EL ELLIE, MDA MDA [id number] MD 00:00:00 00:00:00 TOM santana 2020-06-28 2020-06-28 Outpatient EL ANTONOFF, MDA MDA [id number] 08:00:00 23:59:00 LAKESHA santana 2020-06-28 2020-06-28 Outpatient EL ANTONOFF, MDA MDA [id number] MD 00:00:00 00:00:00 LAKESHA santana 2020-06-27 2020-06-27 Outpatient EL DAHIANA, MDA MDA [id number] 12:52:57 23:59:00 EPHRAIM santana 2020-06-27 2020-06-27 Outpatient EL JUAN, MDA MDA [id number] 13:35:38 16:04:41 MARKY santana 2020-06-27 2020-06-27 Outpatient EL DAHIANA, MDA MDA [id number] 13:36:09 14:34:39 EPHRAIM santana 2020-06-27 2020-06-27 Outpatient EL MARTINEZ, MDA MDA [id number] 12:55:03 13:17:30 MARKY santana 2020-06-27 2020-06-27 Outpatient EL DAHIANA, MDA MDA [id number] 12:35:50 12:45:28 EPHRAIM santana 2020-06-27 2020-06-27 Outpatient EL ANTONOFF, MDA MDA [id number] 00:00:00 00:00:00 LAKESHA santana 2020-06-19 2020-06-19 Outpatient ELLIE, MDA MDA [id number] MD 00:00:00 00:00:00 TOM santana 2020-06-16 2020-06-16 Outpatient EL DAHIANA, MDA MDA [id number] MD 00:00:00 00:00:00 EPHRAIM santana 2020-06-16 2020-06-16 Outpatient EL DAHIANA, MDA MDA [id number] MD 00:00:00 00:00:00 EPHRAIM santana 2020-06-08 2020-06-08 Outpatient EL ELLIE, MDA MDA [id number] 06:48:42 23:59:00 TOM santana 2020-06-07 2020-06-07 Outpatient EL ELLIE, MDA MDA [id number] 12:50:20 12:50:20 TOM santana 2020-06-07 2020-06-07 Outpatient EL ELLIE, MDA MDA [id number] 12:15:53 12:15:53 TOM santana 2020-06-07 2020-06-07 Outpatient EL ELLIE, MDA MDA [id number] MD 09:47:40 09:56:03 TOM santana 2020-06-07 2020-06-07 Outpatient EL ANTONOFF, MDA MDA [id number] 09:53:41 09:53:41 LAKESHA santana 2020-06-07 2020-06-07 Outpatient EL ANTONOFF, MDA MDA [id number] 09:53:40 09:53:40 LAKESHA santana 2020-06-07 2020-06-07 Outpatient EL ANTONOFF, MDA MDA [id number] 09:53:36 09:53:36 LAKESHA Percy o n 2020-06-07 2020-06-07 Outpatient EL ANTONOFF, MDA MDA [id number] 09:53:35 09:53:35 LAKESHA Percy o n 2020-06-07 2020-06-07 Outpatient EL ANTONOFF, MDA MDA [id number] 09:53:35 09:53:35 LAKESHA Percy o n 2020-06-07 2020-06-07 Outpatient EL ANTONOFF, MDA MDA [id number] 09:53:33 09:53:33 LAKESHA Percy o n 2020-06-07 2020-06-07 Outpatient EL ANTONOFF, MDA MDA [id number] 09:53:32 09:53:32 LAKESHA Percy o n 2020-06-07 2020-06-07 Outpatient EL ANTONOFF, MDA MDA [id number] 08:38:11 09:51:09 LAKESHA Percy o n 2020-06-07 2020-06-07 Outpatient EL ANTONOFF, MDA MDA [id number] 08:31:44 08:31:51 LAKESHA Percy o n 2020-06-03 2020-06-03 Outpatient EL ANTONOFF, MDA MDA [id number] 10:58:20 11:05:59 LAKESHA Percy o n 2020-06-03 2020-06-03 Outpatient EL ANTONOFF, MDA MDA [id number] 00:00:00 00:00:00 LAKESHA Montelongoers o n 2020-06-03 2020-06-03 Outpatient EL ANTONOFF, MDA MDA [id number] 00:00:00 00:00:00 LAKESHA english n Results Test Description Test Time Test Comments Results Result Comments Source POC Glucose Screen 2021-09-19 16:32:54 Test Item Value Reference Range Interpretation Comme nts POC Glucose (test code = 58642-7) 116 mg/dL 70-99 H Capillary blood samples, e.g. obtained by [facility], may have inaccurate resu lts in patients [...] Venous Performing Lab (test code = DI [facility] [address]) [facility] [place] [facility], [address] [place] [address]; Point of Care Lab Dir uri: Meron Alston MD Lab Interpretation (test code = Abnormal 89578-7) [facility] Glucose [id number] 16:32:54 Test Item Value Reference Range Interpretation Comments POC Glucose (test 116 mg/dL 70-99 H Capillary blood code = 71342-0) samples, e.g . obtained by fingerstick, may have inaccurate results in patients wit h decreased perip heral blood flow. Met hod description: Al l results are pawan sured using Electroch emistry test methodolog y. The glucose in the sample mixes with the reagents on the test str ip. The reaction produc es an electric curren t. The amount of curre nt produced is proportional to the glucose concent ration in the blood. PO Sample Type (test Venous code = 9554) Performing Lab (test DI [facility] code = 28626) [facility], [address] [place], [place] [address]; Point of Care L ab Director: Meron lewis MD Lab Interpretation Abnormal (test code = 50388-0) [facility] Glucose [id number] 16:32:54 Test Item Value Reference Range Interpretation Comments POC Glucose (test 116 mg/dL 70-99 H Capillary blood code = 98652-4) samples, e.g . obtained by fingerstick, may have inaccurate results in patients wit h decreased perip heral blood flow. Met hod description: Al l results are pawan sured using Electroch emistry test methodolog y. The glucose in the sample mixes with the reagents on the test str ip. The reaction produc es an electric curren t. The amount of curre nt produced is proportional to the glucose concent ration in the blood. PO Sample Type (test Venous code = 9554) Performing Lab (test [facility] code = 52527) [facility] [place] [facility], [address] [place], [place] [address]; Point of Care Sara ab Director: Meron lewis MD Lab Interpretation Abnormal (test code = 30127-6) [facility] [place] [id number] 14:15:00 RUN DATE: 10/12/18 [facility] - Lab PAGE 1 RUN TIME: 1415 Specimen Inquiry RUN USER: INTERFACE PATIENT: NATHAN MONTEJO LOC: MARS U #: [id number] AGE/SX: 62/F ROOM: [facility] RE10/09/18REG DR: Timoteo Kang MD : 53 BED: A DIS: 10/11/18 STATUS: DIS IN TLOC: SPEC #: [id number] RECD: 10/11/18 STATUS: SOUAmrita REQ #: [id number] KOURTNEY: 10/09/[address]: Timoteo Kang MD ENTERED: 10/11/18 SP TYPE: ARTERY, PL OTHR DR: Jessica Madsen MD, Gregory S MDORDERED: DECAL, SURG PATH LVL 3 CODES: H17977 - ARTERY, NOS U03043 Q84321 - ARTERY, NOS DEGENERATION, N [id number] V45801 - ARTERY, NOS NEOPLASM, ALIE [id number] O70740 - LEFT POPLITEAL PLAQUE, NOS COPIES [place]: [place] [address] [place] [address] [place] [address] [facility] [address] [place] [address] [place] [address] [facility] [address] [place] [address] PROCEDURES: DECAL (10/12/18) SURG PATH LVL 3 (10/11/18) TISSUES: A. ARTERY, NOS - PLAQUE LT POPLITEAL ARTERY CLINICAL HISTORY SEVERE PERIPHERAL VASCULAR DISEASE CPT CODES CPT CODE(S): 19230 , 07352 , , , , , FINAL DIAGNOSIS Plaque, left popliteal artery, endarterectomy: ATHEROMATOUS PLAQUE WITH CALCIFIC DEGENERATION. NO ATYPIA. CONTINUED ON NEXT PAGE RUN DATE: 10/12/18 [facility] PAGE 2 RUN TIME: 1415 Specimen Inquiry RUN USER: INTERFACE SPEC #: [id number] PATIENT: NATHAN MONTEJO #[id number] (Continu ed) FINAL DIAGNOSIS (Continued) NO MALIGNANCY. GROSS DESCRIPTION Plaque from the left popliteal. The specimenconsists of several pieces of yellow-ma calcified plaque measuring in aggregate 2.5 x 1.3 x 0.6 cm.Sections submitted for brief decalcification as A1. /tc/pdb MICROSCOPIC DESCRIPTION Plaque from the left popliteal. Benign vascular tissue with dense stromal sclerosis and moderate to marked dystrophiccalcification. No atypia. No malignancy. /cm Signed SIGNATURE ON FILE Marcelo Moulton 10/12/18 1415 --------- --- END OF REPORT
[2022-08-20] MEDS ORDERED: MAGNESIUM HYDROXIDE 8% 30 ML PO PRN (11:25)
[2022-08-20] MEDS ORDERED: TRAMADOL HCL 50 MG TAB PO PRN (11:25)
[2022-08-20] MEDS ORDERED: ONDANSETRON 4 MG/2 ML VIAL IV PRN (11:25)
[2022-08-20] MEDS ORDERED: FENTANYL CITR 100 MCG/2 ML IV PRN (11:25)
[2022-08-20] MEDS ORDERED: ONDANSETRON 4 MG (ODT) TAB PO PRN (11:49)
[2022-08-20] MEDS ORDERED: TRAMADOL HCL 50 MG TAB PO ONE (13:05)
[2022-08-20] MEDS ORDERED: MELATONIN 3 MG TABLET PO PRN (13:16)
[2022-08-20] MEDS: LIDOCAINE 4% PATCH TOP SCH (13:35)
[2022-08-20] MEDS: BACLOFEN 10 MG TAB PO SCH ×2 (14:05→20:02)
[2022-08-20] MEDS: GABAPENTIN 100 MG CAP PO SCH ×2 (14:05→20:02)
[2022-08-20 19:02] LABS: Specific Gravity 1.014 (1.005-1.030); Urine Bilirubin NEGATIVE (Negative); Urine Blood Negative (Negative); Urine Clarity Clear (Clear); Urine Color Yellow (Yellow); Urine Glucose NEGATIVE (Negative); Urine Protein TRACE (Negative); Urine Urobilinogen Normal (Normal); Urine pH 6.5 (5.0-7.0)
--- NOTE | 2022-08-20 19:59 | R.HP ---
HISTORY AND PHYSICAL FACILITY: [facility] ENCOUNTER DATE AND TIME: 08/20/2022 19:49 (CDT) MR#: [id number] NAME NATHAN MONTEJO ADDRESS: [address] [place] [address] CITY: [place] [address] PHONE: DATE OF : 1955 AGE: 66 SSN# [id number] GENDER: Female MARITAL STATUS PRE-HOSPITAL LIVING SETTING 01 - Home (private home/apt. board/care, assisted living, correction, transitional living) PRE-HOSPITAL LIVING WITH Family/Relatives ENCOUNTER PHYSICIAN: Dr. Dave King M.D. REFERRING DOCTOR: Luis Marti DATE OF ADMISSION: 08/20/2022 11:00 (CDT) REFERRING FACILITY [facility] TYPE AND DETAILS: Type of home: single family house # of levels in the residence: 1 # of steps to enter the residence: 0 # of steps within the residence: 0 ONSET DATE: 08/13/2022 PRIMARY DIAGNOSIS-RELATED SURGERIES: closed reduction with IMrod fixation- performed by Hector Cadet on 08/14/2022 SECONDARY/COMORBID DIAGNOSES (TIERED): - Non-Tiered Hyperkalemia (E87.5) Hypomagnesemia (E83.42) Hyperlipidemia, unspecified (E78.5) Essential (primary) hypertension (I10) HISTORY OF PRESENT ILLNESS (HPI): Pt. is a 66 yo Right-handed WF. Her impairment category is Orthopaedic Disorders 08 - Unilateral Hip Fracture (08.11). Pre-morbidly, Pt. was independent/mod-I in Locomotion and Self-Care; and she had good Balance, Transf ers Control, Endurance, and Safety Awareness. Currently, she has deficits of Locomotion, Safety Awareness, Balance, Transfers Control, Self-Care, a nd Endurance. Pt. is now referred to [facility] for acute in-patient rehabilitation in order to maximize patient's functional independence in activities of daily living, strength, ROM, and mobi lity. Patient has realistic goal of being discharged at assistance level 6-Lamont to reside at Home with Fam sebastien/Relatives. Pt is a 66 yo female who presented to the hospital after suffering a fall which resulted in an IT fem ur fracture. Pt underwent CR IM Heri fixation on TDWB LLE 08/14/22. Pt has PMH of osteoporosis, HTN, Hy perlipidemia, PVD, Anemia, and Cancer ( Dx 2020). Pt is experiencing significant pain that is compl icated to control due to pt allergies to pain medication. Per PT, pt is MOD A with bed mobility [facility] is unable to perform transfers and ambulate at this time due to fear of pain and jumpiness.Noteabl e decreased LLE strength. Prior to onset pt was independent in ambulation and ADLs. MEDICATION ALLERGIES: Morphine Codeine Advil Hydrocodone Antihistamines Nabumetone ENVIRONMENTAL ALLERGIES: - Substance Allergies None Known - Other Allergies None Known PAST MEDICAL HISTORY: Essential (primary) hypertension (I10) Hyperkalemia (E87.5) Hyperlipidemia, unspecified (E78.5) Hypomagnesemia (E83.42) SOCIAL HISTORY: - Home Living Family/Relatives REVIEW OF SYSTEMS: - Gen No Chills Fatigue No Fever - Eyes No Double Vision No itchiness - ENMT No Difficulty Swallowing - CVS No Chest Discomfort No Chest Pain Fatigue No Weight Gain - Resp No Cough No Shortness of Breath - GI Continent No Abdominal Pain No Constipation No Diarrhea - Continent No Kidney Pain No Painful Urination No Urinary Urgency - MSK No Joint Pain Muscle Cramps Stiffness - Skin No Itching No Rash No Suspicious Lesions - Neuro Coordination Difficulty No Difficulty with Concentration No Memory Loss No Seizures Weakness - Psych No Anxiety No Depression No HIV Exposure No Persistent Infections No Seasonal Allergies - Endo No Cold/Heat Intolerance No Excessive Hunger No Excessive Thirst No Excessive Urination PHYSICAL EXAM - Gen No apparent distress - Skin Left hip incision intact. No abnormalities - Eyes No abnormalities - ENMT No abnormalities - Neck No abnormalities - CVS RRR - Chest No abnormalities - Resp No wheezing - Abd + bowel sounds - GI Soft Deferred - No abnormalities - Ext Mild left lower extremity edema. - MSK 4+/5 weakness in left lower extremity - Neuro 4/5 strength left lower extremity. - Psych No abnormalities VITAL SIGNS Temperature: 97.2 F SBP/DBP: 119/60 Pulse: 75 Resp: 16 NURSING: - Shower allowing shower - Skin care per protocol PRECAUTIONS: - Anterior Hip Precaution No abduction No active extension No adduction across midline No external rotation No hip flexion >90 degrees No internal rotation - Posterior Hip Precaution No adduction across midline No external rotation No hip flexion >90 degrees No internal rotation No wheel chair propulsion - Weight Bearing Precaution TTWB left LE ACTIVITIES OOB only with supervision QI SCORES: - Self-Care A. Eating 05-Setup or clean-up assistance B. Oral hygiene 05-Setup or clean-up assistance C. Toileting hygiene 03-Partial/moderate assistance E. Shower/bathe self 02-Substantial/maximal assistance F. Upper body dressing 05-Setup or clean-up assistance G. Lower body dressing 02-Substantial/maximal assistance H. Putting on/taking off footwear 02-Substantial/maximal assistance - Mobility A. Roll left and right 03-Partial/moderate assistance B. Sit to lying 03-Partial/moderate assistance C. Lying to sitting on side of bed 03-Partial/moderate assistance D. Sit to stand 88-Not attempted due to medical condition or safety concerns E. Chair/vfq-br-ytzyl transfer 88-Not attempted due to medical condition or safety concerns F. Toilet transfer 88-Not attempted due to medical condition or safety concerns G. Car transfer 88-Not attempted due to medical condition or safety concerns I. Walk 10 feet 88-Not attempted due to medical condition or safety concerns J. Walk 50 feet with two turns 88-Not attempted due to medical condition or safety concerns K. Walk 150 feet 88-Not attempted due to medical condition or safety concerns L. Walking 10 feet on uneven surfaces 88-Not attempted due to medical condition or safety concerns M. 1 step (curb) 88-Not attempted due to medical condition or safety concerns N. 4 steps 88-Not attempted due to medical condition or safety concerns O. 12 steps 88-Not attempted due to medical condition or safety concerns P. Picking up object 88-Not attempted due to medical condition or safety concerns R. Wheel 50 feet with two turns 09-Not applicable S. Wheel 150 feet 09-Not applicable - Bladder and Bowel Bladder continence 0-Always continent Bowel continence 0-Always continent CURRENT FUNC. DEFICITS: Self-Care and Mobility MEDICATIONS: - Other See attached MAR (Medication Administration Record) ASSESSMENT: Pt. is a 66 yo Right-handed WF.Her impairment category is Orthopaedic Disorders 08 - Unilateral Hip Fracture (07.11).Pre-morbidly, Pt. was independent/mod-I in Locomotion and Self-Care; and she had goo d Balance, Transfers Control, Endurance, and Safety Awareness.Currently, she has deficits of Locomoti on, Safety Awareness, Balance, Transfers Control, Self-Care, and Endurance.Pt. is now referred to [facility] for acute in-patient rehabilitation in order to maximize patient's fun ctional independence in activities of daily living, strength, ROM, and mobility.- Rehab Goal Patient has realistic goal of being discharged at assistance level 6-[place] to reside at Home with Fam sebastien/Relatives. Pt is a 66 yo female who presented to the hospital after suffering a fall which resulted in an IT fem ur fracture. Pt underwent CR IM Heri fixation on TDWB LLE 08/14/22. Pt has PMH of osteoporosis, HTN, Hy perlipidemia, PVD, Anemia, and Cancer ( Dx 2020). Pt is experiencing significant pain that is compl icated to control due to pt allergies to pain medication. Per PT, pt is MOD A with bed mobility [facility] is unable to perform transfers and ambulate at this time due to fear of pain and jumpiness.Noteabl e decreased LLE strength. Prior to onset pt was independent in ambulation and ADLs. - Physical Therapy Decreased range of motion - to improve, our physical therapists will perform initial evaluation of pt 's status upon admission and devise an individualized program for increasing patient's Range of Motio n. Inability to transfer - to improve, our physical therapists will perform initial evaluation of pt's s tatus upon admission and devise an individualized program for Bed mobility Need for home safety evaluation - to improve, our physical therapists will perform initial evaluation of pt's status upon admission and devise an individualized program for Home Evaluation Need in caregiver upon discharge - to improve, our physical therapists will perform initial evaluatio n of pt's status upon admission and devise an individualized program for Caregiver Training New precaution - to improve, our physical therapists will perform initial evaluation of pt's status u jennie admission and devise an individualized program for Patient precaution education Edema - to improve, our physical therapists will perform initial evaluation of pt's status upon admi ssion and devise an individualized program for Elevation Training, and Lymphedema Therapy Poor balance - to improve, our physical therapists will perform initial evaluation of pt's status upo n admission and devise an individualized program for Balance Training Poor endurance - to improve, our physical therapists will perform initial evaluation of pt's status u jennie admission and devise an individualized program for Endurance Training Achieving independence - to improve, our physical therapists will perform initial evaluation of pt's status upon admission and devise an individualized program for Community Reintegration Activities - Occupational Therapy ADL deficits - to improve, our occupation therapists will perform initial evaluation of pt's status u jennie admission and devise an individualized program for Bathing, Bed mobility, Community Reintegration , Cooking, Dressing, Eating, Fine Motor Skills, Grooming, Homemaking, Kitchen Mobility, Laundry, Mikayla ent Education, Safety Awareness, Splinting - Positioning, Transfers(Toilet, Tub, Shower), and Wheel C hair Management Need for companion caregiver - to improve, our occupation therapists will perform initial evaluation of pt's s tatus upon admission and devise an individualized program for Caregiver Training MEDICAL PLAN: - Anterior Hip Precaution No abduction No active extension No adduction across midline No external rotation No hip flexion >90 degrees No internal rotation - Diet - Liquid Texture Regular - Tube Feed N/A - Diet Type Regular - Posterior Hip Precaution No adduction across midline No external rotation No hip flexion >90 degrees No internal rotation No wheel chair propulsion - Weight Bearing Precaution TTWB left LE - Skin care per protocol - Other See attached MAR (Medication Administration Record) - Diet - Solid Texture Regular - Shower shower DISCHARGE PLAN: - Estimated Length of Stay (days) 14. - Consensus on plan Discharge plan has been discussed with primary caregiver. Patient/Family is in agreement with the rosanne n. Primary caregiver is in agreement with the plan. - Patient/Family Goals Return home independently. - Planned Living Setting Upon Discharge Home, to live with Family/Relatives. Transitional Living. SIGNATURE PANEL: (CDT)
[2022-08-20] MEDS: DOCUSATE NA/SENNA CONC 1 TAB PO SCH (20:00)
--- NOTE | 2022-08-20 20:00 | PAPE ---
POST ADMISSION PHYSICIAN EVALUATION PATIENT: [facility] MR# [id number] REFERRING DOCTOR Luis Marti EVALUATION DATE AND TIME 08/20/2022 19:58 (CDT) NAME NATHAN MONTEJO DATE OF 1955 AGE 66 PHONE SSN# [id number] GENDER female EVALUATING PHYSICIAN Dr. Dave King M.D. ADMISSION DIAGNOSIS: S72.142 intertrochanteric fracture of left femur ONSET DATE 08/13/2022 SECONDARY/COMORBID DIAGNOSES TIERED: - Non-Tiered Hyperkalemia (E87.5) Hypomagnesemia (E83.42) Hyperlipidemia, unspecified (E78.5) Essential (primary) hypertension (I10) POST-ADMISSION FUNCTIONAL/MEDICAL STATUS: - Bladder Same accident frequency: 7-Ind - No accidents in the past 7 days - Bowel Same accident frequency: 7-Ind - No accidents in the past 7 days - Walking Same score based on distance walked: 0(N/A) - Wheelchair Same score based on distance traveled: 0(N/A) STATUS CHANGE EVALUATION: No change in Functional or Medical Status is identified compared with Pre-Admission screening. PATIENT NEEDS CLOSE MEDICAL SUPERVISION BY A REHABILITATION PHYSICIAN FOR: Coordination of Treatment Team Medical and Co-Morbidity Management Wound Care Pain Management Bowel and Bladder Management PATIENT REQUIRES 24X7 REHAB NURSING FOR MEDICAL AND FUNCTIONAL MGT. OF THE FOLLOWING DEFICITS: Disease Management Medication Management Patient requires 24x7 Rehabilitation Nursing for: Pain Issues, Identifying and preventing risk factor s, Monitoring and reporting current medical conditions, Assisting with ambulation and transfer, Gale ting with all ADL-s, Teaching patients about disease process and medications, Family teaching, Provid ing safe environment, Bowel and Bladder Issues, Skin Integrity, and Medication Management Patient/Family Education Providing Safe Environment Skin Integrity PATIENT REQUIRES INTENSIVE, COORDINATED INTERDISCIPLINARY APPROACH TO REHAB: Arranging Home Equipment/Services Discharge Planning Family Intervention/Training Patient needs Dietary and Nutrition Services for: Adequate Nutrition, Nutritional Supplements, and Nu tritional Education Patient needs Media Associate and/or Case Management for: Discharge Planning, Arranging Home Equipmen t or Services, and Family Interventions Media Associate/Case Management LIST OF IDENTIFIED AND POTENTIAL PROBLEMS: Alteration in leisure activities Bladder, Incontinence Blood Pressure, Hypertension/hypotension Issues Bowel, Incontinence Infection, Actual or Potential Mobility Impaired Pain, Alteration in Comfort Self Care Deficit Skin Integrity, Actual or Potential Urinary Tract Infection (UTI), Actual or Potential RISK FOR COMPLICATIONS - Pain Anticipate the need for pain medication for optimal pain managment. Assist patient with frequent posi tion changes at least every 2 hours. Administer prescribed pain medication as needed. Educate patient on relaxation and deep breathing techniques. Assess pt for pain and Administer prescribed pain medic ation as needed. - DVT Active and Passive ROM exercises. Assist patient with frequent position changes. Elevate BLE. Adminis ter medications per MD order. - Skin Breakdown Use of pillows or foam wedges while in bed. Repositioning q 2 hours. Encourage ambulation as tolerate d. - Falls Provide assistance getting out of bed and with ambulation. Maintain call light within patient reach f or easy access to nursing assistance. Assess for medication side effects. - Stroke Assess/ Monitor and maintain patient pain level. Assess/ Monitor patient blood pressure. INTERVENTIONS - Hypertension - Hyperlipidemia Monitor LDL level and treat with prescribed medications. Implement healthy diet. Monitor and control blood pressure. Monitor blood pressure and maintain within parameters through administering routine m edication. Regular physical activity. - Hypomagnesemia - Hypokalemia Monitor pt labs. Administer medication per MD order and monitor effectivness. - Left Hip Fracture Aggressive PT/OT. Assess pt pain and treat with prescribed medication. PATIENT COULD BE AT RISK FOR COMPLICATIONS FROM ADVERSE MEDICAL CONDITIONS DUE TO HIS/HER COMORBIDITI ES AND THE RIGORS OF THE INTENSIVE REHABILLITATION PROGRAM. METHODS OR INTERVENTIONS TO AVOID COMPLIC ATIONS INCLUDE: - Bleeding Assess lab values and manage abnormalities. Nursing to teach precautions for anti-coagulation therapy . Wound to be assessed every shift. - Infection Clinical staff to assess and manage the signs and symptoms of infection including fever, redness, war mth, etc. - Urinary Tract Infection - Falls Patient will be evaluated for Fall Precautions and will be placed on Fall Precautions as indicated pe r protocol. - Skin Breakdown Nursing will assess skin daily using assessment tool and will place on Skin Breakdown Precautions as indicated per protocol. - Pain Clinical staff may employ non-medication methods such as massage, distraction, decrease stimulus, etc . as needed. Clinical staff will assess patient's pain level every shift per protocol to assess and e nsure pain management effectiveness. Medications will be given and the pain level re-assessed. PRELIMINARY PLAN OF CARE: - Physical Therapy Patient needs Physical Therapy for a daily minimum of 1.5 hours at least 5 out of 7 days, to improve: Mobility, Strengthening, Transfers, Stretching, ROM, Endurance, Ability to manage stairs, Gait, and Balance. - Rehabilitation Nursing Patient requires 24x7 Rehabilitation Nursing for: Pain Issues, Identifying and preventing risk factor s, Monitoring and reporting current medical conditions, Assisting with ambulation and transfer, Gale ting with all ADL-s, Teaching patients about disease process and medications, Family teaching, Provid ing safe environment, Bowel and Bladder Issues, Skin Integrity, and Medication Management. Patient needs Media Associate and/or Case Management for: Discharge Planning, Arranging Home Equipmen t or Services, and Family Interventions. - Dietary and Nutrition Services Patient needs Dietary and Nutrition Services for: Adequate Nutrition, Nutritional Supplements, and Nu tritional Education. - Occupational Therapy Patient needs Occupational Therapy for a daily minimum of 1.5 hours at least 5 out of 7 days, to impr ove Activities of Daily Living, including: Eating, Grooming, Bathing, Dressing, Toileting, Toilet Tra nsfers, Community Reintegration, Higher functional activities, Adaptive Equipment, Splinting, Househo ld Tasks, and Other activities as determined. QI SCORES: - Self-Care A. Eating 05-Setup or clean-up assistance B. Oral hygiene 05-Setup or clean-up assistance C. Toileting hygiene 03-Partial/moderate assistance E. Shower/bathe self 02-Substantial/maximal assistance F. Upper body dressing 05-Setup or clean-up assistance G. Lower body dressing 02-Substantial/maximal assistance H. Putting on/taking off footwear 02-Substantial/maximal assistance - Mobility A. Roll left and right 03-Partial/moderate assistance B. Sit to lying 03-Partial/moderate assistance C. Lying to sitting on side of bed 03-Partial/moderate assistance D. Sit to stand 88-Not attempted due to medical condition or safety concerns E. Chair/nbd-go-mztdh transfer 88-Not attempted due to medical condition or safety concerns F. Toilet transfer 88-Not attempted due to medical condition or safety concerns G. Car transfer 88-Not attempted due to medical condition or safety concerns I. Walk 10 feet 88-Not attempted due to medical condition or safety concerns J. Walk 50 feet with two turns 88-Not attempted due to medical condition or safety concerns K. Walk 150 feet 88-Not attempted due to medical condition or safety concerns L. Walking 10 feet on uneven surfaces 88-Not attempted due to medical condition or safety concerns M. 1 step (curb) 88-Not attempted due to medical condition or safety concerns N. 4 steps 88-Not attempted due to medical condition or safety concerns O. 12 steps 88-Not attempted due to medical condition or safety concerns P. Picking up object 88-Not attempted due to medical condition or safety concerns R. Wheel 50 feet with two turns 09-Not applicable S. Wheel 150 feet 09-Not applicable - Bladder and Bowel Bladder continence 0-Always continent Bowel continence 0-Always continent POTENTIAL FUNCTIONAL GOALS FOR PATIENT TO ACHIEVE BY DISCHARGE: - Safety Precaution Patient will remain free from falls or injury at time of discharge. - Bed Mobility Patient will perform bed mobility at 4-Katharina level of assistance. - Transfers Patient will complete transfers from bed to chair at 4-Katharina level of assistance. - Mobility Patient will ambulate 150 ft with 4-Katharina level of assistance with RW. PATIENT REHAB POTENTIAL Jey MONTEJO is able and expected to receive 3 hours of individualized therapy daily on at least 5 of mili 7 days Jey MONTEJO's prognosis for significant practical improvement within a reasonable period of time appear s Good Expected level of measurable improvement will be of a practical value to Jey GUSTABO's functional capac ity or adaptations to impairments Has a viable Discharge Plan Medically appropriate; condition is sufficiently stable to participate in intensive rehab program DISCHARGE PLAN: - Estimated Length of Stay (days) 14. - Consensus on plan Discharge plan has been discussed with primary caregiver. Patient/Family is in agreement with the rosanne n. Primary caregiver is in agreement with the plan. - Patient/Family Goals Return home independently. - Planned Living Setting Upon Discharge Home, to live with Family/Relatives. Transitional Living. CONCLUSION ON REHABILITATION NECESSITY: I have evaluated patient's pre-admission functional status and, comparing it to the patient's post-ad mission functional status now, I conclude that the pre-admission assessment was accurate. Patient's c ondition on admission supports the medical necessity of admission to IRF. It is safe to proceed with patient's therapy program. SIGNATURE PANEL: (CDT)
[2022-08-20] MEDS: APIXABAN 2.5 MG TABLET PO SCH (20:01)
[2022-08-20] MEDS: AMLODIPINE 5 MG TAB PO SCH (20:01)
[2022-08-20] MEDS: ROSUVASTATIN 10 MG TAB PO SCH (20:02)
[2022-08-20] MEDS: MAGNESIUM OXIDE 400 MG TAB PO SCH (20:02)
[2022-08-20] MEDS: TRIAMCINOLONE ACET 0.1% CREAM 80 GM TOP SCH (20:03)
[2022-08-20] MEDS: BISOPROLOL 5 MG TABLET PO SCH (21:00)
[2022-08-21] MEDS: TRAMADOL HCL 50 MG TAB PO PRN ×3 (04:30→13:49)
[2022-08-21 04:44] VITALS: BMI 23.1
[2022-08-21 04:45] LABS: Absolute Lymphocytes (CBC) 1.2 K/uL (0.7-4.9); Hematocrit 30.3 % (36.0-45.0); Lymphocytes % 15.6 % (15.3-44.8); MCV 107.9 fL (80-100); MPV 7.7 fL (7.6-11.3); RBC Red Blood Cell Count 2.81 M/uL (3.86-4.86)
[2022-08-21 05:04] LABS: Blood Morphology Comment NOTED (NOT SEEN); Macrocytosis 1+; Platelet Estimate INCR; White Blood Cell Scan OK (OK)
[2022-08-21 05:07] LABS: Albumin 2.4 g/dL (3.4-5.0); Magnesium 1.9 mg/dL (1.8-2.4); Potassium 5.1 mmol/L (3.5-5.1); Prealbumin 7.7 mg/dL (20-40)
[2022-08-21] MEDS: BACLOFEN 10 MG TAB PO SCH (08:00)
[2022-08-21] MEDS: AMLODIPINE 5 MG TAB PO SCH ×2 (08:00→19:35)
[2022-08-21] MEDS ORDERED: MAGNESIUM OXIDE 400 MG TAB PO SCH (08:00)
[2022-08-21] MEDS: LOSARTAN POTASSIUM 50 MG TABLET PO SCH (08:00)
[2022-08-21] MEDS: GABAPENTIN 100 MG CAP PO SCH (08:00)
[2022-08-21] MEDS: APIXABAN 2.5 MG TABLET PO SCH ×2 (08:57→19:34)
[2022-08-21] MEDS: MAGNESIUM OXIDE 400 MG TAB PO SCH ×2 (08:59→19:34)
[2022-08-21] MEDS: LIDOCAINE 4% PATCH TOP SCH (09:24)
[2022-08-21] MEDS: TRIAMCINOLONE ACET 0.1% CREAM 80 GM TOP SCH ×2 (09:24→19:34)
[2022-08-21] MEDS: ACETAMINOPHEN 500 MG TAB PO PRN (10:08)
--- NOTE | 2022-08-21 18:14 | R.PN ---
PROGRESS NOTES ENCOUNTER DATE AND TIME: 08/21/2022 18:07 (CDT) NAME NATHAN MONTEJO DATE OF : 1955 DATE OF ADMISSION: 08/20/2022 11:00 (CDT) S72.142 intertrochanteric fracture of left femurCHIEF COMPLAINT: Left hip fracture. SUBJECTIVE: Pt denied any Shortness of Breath. Pt denied any depression. WBC 7.5, Hgb 10.4, prealbumin 7.7, Na 133. Physical and occupational therapy done with moderate to maximum assistance due to pain and muscle spa sms. VITAL SIGNS Temperature: 97.5. F SBP/DBP: 102/53 Pulse: 76 Resp: 16 MEDICATION ALLERGIES: Morphine Codeine Advil Hydrocodone Antihistamines Nabumetone ENVIRONMENTAL ALLERGIES: - Substance Allergies None Known - Other Allergies None Known NURSING: - Shower allowing shower - Skin care per protocol PRECAUTIONS: - Anterior Hip Precaution No abduction No active extension No adduction across midline No external rotation No hip flexion >90 degrees No internal rotation - Posterior Hip Precaution No adduction across midline No external rotation No hip flexion >90 degrees No internal rotation No wheel chair propulsion - Weight Bearing Precaution TTWB left LE ACTIVITIES OOB only with supervision THERAPIES: - Dietary and Nutrition Adequate Nutrition. Nutritional Education. Nutritional Supplements. - Occupational Therapy Cognitive Retraining. Patient needs Occupational Therapy for a daily minimum of 1.5 hours at least 5 out of 7 days, to improve Activities of Daily Living, including: Eating, Grooming, Bathing, Dressing, Toileting, Toilet Transfers, Community Reintegration, Higher functional activities, Adaptive Equipme nt, Splinting, Household Tasks, and Other activities as determined. Visual Perceptual Training. - Physical Therapy Patient needs Physical Therapy for a daily minimum of 1.5 hours at least 5 out of 7 days, to improve: Mobility, Strengthening, Transfers, Stretching, ROM, Endurance, Ability to manage stairs, Gait, and Balance. PHYSICAL EXAM - Gen No apparent distress - Skin Left hip incision intact. No abnormalities - Eyes No abnormalities - ENMT No abnormalities - Neck No abnormalities - CVS RRR - Chest No abnormalities - Resp No wheezing - Abd + bowel sounds - GI Soft Deferred - No abnormalities - Ext Mild left lower extremity edema. - MSK 4+/5 weakness in left lower extremity - Neuro 4/5 strength left lower extremity. - Psych No abnormalities ASSESSMENT: Pt. is a 66 yo Right-handed WF.Her impairment category is Orthopaedic Disorders 08 - Unilateral Hip Fracture (07.11).Pre-morbidly, Pt. was independent/mod-I in Locomotion and Self-Care; and she had goo d Balance, Transfers Control, Endurance, and Safety Awareness.Currently, she has deficits of Locomoti on, Safety Awareness, Balance, Transfers Control, Self-Care, and Endurance.Pt. is now [facility] to [facility] for acute in-patient rehabilitation in order to maximize patient's fun ctional independence in activities of daily living, strength, ROM, and mobility.- Rehab Goal Patient has realistic goal of being discharged at assistance level 6-Lamont to reside at Home with Fam sebastien/Relatives. MDM/PLAN: - Physical Therapy Decreased range of motion - to improve, our physical therapists will perform initial evaluation of p t's status upon admission and devise an individualized program for increasing patient's Range of Skyler on. Inability to transfer - to improve, our physical therapists will perform initial evaluation of pt's status upon admission and devise an individualized program for Bed mobility Need for home safety evaluation - to improve, our physical therapists will perform initial evaluatio n of pt's status upon admission and devise an individualized program for Home Evaluation Need in caregiver upon discharge - to improve, our physical therapists will perform initial evaluati on of pt's status upon admission and devise an individualized program for Caregiver Training New precaution - to improve, our physical therapists will perform initial evaluation of pt's status upon admission and devise an individualized program for Patient precaution education Edema - to improve, our physical therapists will perform initial evaluation of pt's status upon admis janie and devise an individualized program for Elevation Training, and Lymphedema Therapy Poor balance - to improve, our physical therapists will perform initial evaluation of pt's status up on admission and devise an individualized program for Balance Training Poor endurance - to improve, our physical therapists will perform initial evaluation of pt's status upon admission and devise an individualized program for Endurance Training Achieving independence - to improve, our physical therapists will perform initial evaluation of pt's status upon admission and devise an individualized program for Community Reintegration Activities - Occupational Therapy ADL deficits - to improve, our occupation therapists will perform initial evaluation of pt's status upon admission and devise an individualized program for Bathing, Bed mobility, Community Reintegratio n, Cooking, Dressing, Eating, Fine Motor Skills, Grooming, Homemaking, Kitchen Mobility, Laundry, Pat ient Education, Safety Awareness, Splinting - Positioning, Transfers(Toilet, Tub, Shower), and Wheel Chair Management Need for manager long term care - to improve, our occupation therapists will perform initial evaluation of pt's status upon admission and devise an individualized program for Caregiver Training - Other See attached MAR (Medication Administration Record) - Anterior Hip Precaution No abduction No active extension No adduction across midline No external rotation No hip flexion >90 degrees No internal rotation - Diet - Liquid Texture Continue Regular - Tube Feed Continue N/A - Diet Type Continue Regular - Posterior Hip Precaution No adduction across midline No external rotation No hip flexion >90 degrees No internal rotation No wheel chair propulsion - Weight Bearing Precaution TTWB left LE - Skin care per protocol - Diet - Solid Texture Continue Regular - Shower allowing shower FUNCTIONAL STATUS: UPDATED AT WEEKLY TEAM CONFERENCE - Bladder Same accident frequency: 7-Ind - No accidents in the past 7 days - Bowel Same accident frequency: 7-Ind - No accidents in the past 7 days - Walking Same score based on distance walked: 0(N/A) - Wheelchair Same score based on distance traveled: 0(N/A) FUNCTIONAL STATUS: - Self-Care A. Eating Ind B. Grooming sup C. Bathing Katharina D. Dressing - Upper Katharina E. Dressing - Lower modA F. Toileting Katharina - Sphincter Control G. Bladder control Lamont H. Bowel control Lamont - Transfers Control I. Bed/Chair/Wheelchair maxA J. Toilet maxA K. Tub/Shower maxA - Locomotion L. Walk/Wheelchair (B) modA M. Stairs maxA - Communication N. Comprehension (B) Lamont O. Expression (B) Lamont - Social Cognition P. Social Interaction Lamont Q. Problem Solving Lamont R. Memory Lamont - Endurance Poor - Balance Poor - Safety Awareness Fair QI SCORES: - Self-Care A. Eating 05-Setup or clean-up assistance B. Oral hygiene 05-Setup or clean-up assistance C. Toileting hygiene 03-Partial/moderate assistance E. Shower/bathe self 02-Substantial/maximal assistance F. Upper body dressing 05-Setup or clean-up assistance G. Lower body dressing 02-Substantial/maximal assistance H. Putting on/taking off footwear 02-Substantial/maximal assistance - Mobility A. Roll left and right 03-Partial/moderate assistance B. Sit to lying 03-Partial/moderate assistance C. Lying to sitting on side of bed 03-Partial/moderate assistance D. Sit to stand 88-Not attempted due to medical condition or safety concerns E. Chair/vri-uo-gxvgl transfer 88-Not attempted due to medical condition or safety concerns F. Toilet transfer 88-Not attempted due to medical condition or safety concerns G. Car transfer 88-Not attempted due to medical condition or safety concerns I. Walk 10 feet 88-Not attempted due to medical condition or safety concerns J. Walk 50 feet with two turns 88-Not attempted due to medical condition or safety concerns K. Walk 150 feet 88-Not attempted due to medical condition or safety concerns L. Walking 10 feet on uneven surfaces 88-Not attempted due to medical condition or safety concerns M. 1 step (curb) 88-Not attempted due to medical condition or safety concerns N. 4 steps 88-Not attempted due to medical condition or safety concerns O. 12 steps 88-Not attempted due to medical condition or safety concerns P. Picking up object 88-Not attempted due to medical condition or safety concerns R. Wheel 50 feet with two turns 09-Not applicable S. Wheel 150 feet 09-Not applicable - Bladder and Bowel Bladder continence 0-Always continent Bowel continence 0-Always continent CURRENT FUNC. DEFICITS: Self-Care and Mobility SIGNATURE PANEL: (CDT)
[2022-08-21] MEDS: ROSUVASTATIN 10 MG TAB PO SCH (19:35)
[2022-08-21] MEDS: DOCUSATE NA/SENNA CONC 1 TAB PO SCH ×2 (19:35→20:13)
[2022-08-21] MEDS: ENSURE HIGH PROTEIN 237 ML CAN PO SCH (19:35)
[2022-08-21] MEDS: BISOPROLOL 5 MG TABLET PO SCH (19:36)
--- NOTE | 2022-08-21 22:33 | PN ---
Date of Progress Note: 08/21/2022 Subjective: The patient was seen this morning for followup. No new complaints or problems reported by her. Lying in bed. She was on the rehab floor. Objective: Vital Signs: Reviewed. HEENT: Unremarkable. Lungs: Clear to auscultation. Heart: Sounds normal. Abdomen: Soft. Bowel sounds normal. No guarding, rigidity, tenderness, distention. Extremities: No leg edema. Laboratory Data: White count 7.5, hemoglobin 10.4, platelets 518. Sodium 133, potassium 5.1, chlori de 102, bicarb 28, BUN 18, creatinine 0.74, glucose 112, magnesium 1.9. Impression: 1.Left hip intertrochanteric fracture. 2.Anemia, due to acute blood loss. 3.Hypertension. Plan: We will go ahead and continue current antihypertensive medication. Continue pain medication. Physical therapy to be provided under guidance of Dr. King. Continue Eliquis for DVT prophylaxi s and I will see her tomorrow for followup. The patient did have bowel movement yesterday. BETH/MODL Voice ID: [id number] Report ID: [id number]
[2022-08-22] MEDS: ENSURE HIGH PROTEIN 237 ML CAN PO SCH ×2 (08:00→21:09)
[2022-08-22] MEDS: TRAMADOL HCL 50 MG TAB PO PRN ×2 (08:09→12:07)
[2022-08-22] MEDS: TRIAMCINOLONE ACET 0.1% CREAM 80 GM TOP SCH ×2 (08:09→21:06)
[2022-08-22] MEDS: AMLODIPINE 5 MG TAB PO SCH ×2 (08:10→21:07)
[2022-08-22] MEDS: APIXABAN 2.5 MG TABLET PO SCH ×2 (08:10→21:06)
[2022-08-22] MEDS: LIDOCAINE 4% PATCH TOP SCH (08:10)
[2022-08-22] MEDS: LOSARTAN POTASSIUM 50 MG TABLET PO SCH (08:11)
[2022-08-22] MEDS: MAGNESIUM OXIDE 400 MG TAB PO SCH ×2 (08:11→21:06)
--- NOTE | 2022-08-22 18:18 | R.PN ---
PROGRESS NOTES ENCOUNTER DATE AND TIME: 08/22/2022 18:15 (CDT) NAME NATHAN MONTEJO DATE OF : 1955 DATE OF ADMISSION: 08/20/2022 11:00 (CDT) S72.142 intertrochanteric fracture of left femurCHIEF COMPLAINT: Left hip fracture. SUBJECTIVE: Pt denied any Shortness of Breath. Pt denied any depression. WBC 7.5, Hgb 10.4, prealbumin 7.7, Na 133. Physical and occupational therapy done with moderate to maximum assistance due to pain and muscle spa sms. Therapeutic exercises done with minimum assistance. VITAL SIGNS Temperature: 97.0 F SBP/DBP: 126/61 Pulse: 76 Resp: 16 MEDICATION ALLERGIES: Morphine Codeine Advil Hydrocodone Antihistamines Nabumetone ENVIRONMENTAL ALLERGIES: - Substance Allergies None Known - Other Allergies None Known NURSING: - Shower allowing shower - Skin care per protocol PRECAUTIONS: - Anterior Hip Precaution No abduction No active extension No adduction across midline No external rotation No hip flexion >90 degrees No internal rotation - Posterior Hip Precaution No adduction across midline No external rotation No hip flexion >90 degrees No internal rotation No wheel chair propulsion - Weight Bearing Precaution TTWB left LE ACTIVITIES OOB only with supervision THERAPIES: - Dietary and Nutrition Adequate Nutrition. Nutritional Education. Nutritional Supplements. - Occupational Therapy Cognitive Retraining. Patient needs Occupational Therapy for a daily minimum of 1.5 hours at least 5 out of 7 days, to improve Activities of Daily Living, including: Eating, Grooming, Bathing, Dressing, Toileting, Toilet Transfers, Community Reintegration, Higher functional activities, Adaptive Equipme nt, Splinting, Household Tasks, and Other activities as determined. Visual Perceptual Training. - Physical Therapy Patient needs Physical Therapy for a daily minimum of 1.5 hours at least 5 out of 7 days, to improve: Mobility, Strengthening, Transfers, Stretching, ROM, Endurance, Ability to manage stairs, Gait, and Balance. PHYSICAL EXAM - Gen No apparent distress - Skin Left hip incision intact. No abnormalities - Eyes No abnormalities - ENMT No abnormalities - Neck No abnormalities - CVS RRR - Chest No abnormalities - Resp No wheezing - Abd + bowel sounds - GI Soft Deferred - No abnormalities - Ext Mild left lower extremity edema. - MSK 4+/5 weakness in left lower extremity - Neuro 4/5 strength left lower extremity. - Psych No abnormalities ASSESSMENT: Pt. is a 66 yo Right-handed WF.Her impairment category is Orthopaedic Disorders 08 - Unilateral Hip Fracture (07.11).Pre-morbidly, Pt. was independent/mod-I in Locomotion and Self-Care; and she had goo d Balance, Transfers Control, Endurance, and Safety Awareness.Currently, she has deficits of Locomoti on, Safety Awareness, Balance, Transfers Control, Self-Care, and Endurance.Pt. is now referred to [facility] for acute in-patient rehabilitation in order to maximize patient's fun ctional independence in activities of daily living, strength, ROM, and mobility.- Rehab Goal Patient has realistic goal of being discharged at assistance level 6-Lamont to reside at Home with Fam sebastien/Relatives. MDM/PLAN: - Physical Therapy Decreased range of motion - to improve, our physical therapists will perform initial evaluation of p t's status upon admission and devise an individualized program for increasing patient's Range of Skyler on. Inability to transfer - to improve, our physical therapists will perform initial evaluation of pt's status upon admission and devise an individualized program for Bed mobility Need for home safety evaluation - to improve, our physical therapists will perform initial evaluatio n of pt's status upon admission and devise an individualized program for Home Evaluation Need in caregiver upon discharge - to improve, our physical therapists will perform initial evaluati on of pt's status upon admission and devise an individualized program for Caregiver Training New precaution - to improve, our physical therapists will perform initial evaluation of pt's status upon admission and devise an individualized program for Patient precaution education Edema - to improve, our physical therapists will perform initial evaluation of pt's status upon admi ssion and devise an individualized program for Elevation Training, and Lymphedema Therapy Poor balance - to improve, our physical therapists will perform initial evaluation of pt's status up on admission and devise an individualized program for Balance Training Poor endurance - to improve, our physical therapists will perform initial evaluation of pt's status upon admission and devise an individualized program for Endurance Training Achieving independence - to improve, our physical therapists will perform initial evaluation of pt's status upon admission and devise an individualized program for Community Reintegration Activities - Occupational Therapy ADL deficits - to improve, our occupation therapists will perform initial evaluation of pt's status upon admission and devise an individualized program for Bathing, Bed mobility, Community Reintegratio n, Cooking, Dressing, Eating, Fine Motor Skills, Grooming, Homemaking, Kitchen Mobility, Laundry, Pat ient Education, Safety Awareness, Splinting - Positioning, Transfers(Toilet, Tub, Shower), and Wheel Chair Management Need for health care consultant - to improve, our occupation therapists will perform initial evaluation of pt's status upon admission and devise an individualized program for Caregiver Training - Other See attached MAR (Medication Administration Record) - Anterior Hip Precaution No abduction No active extension No adduction across midline No external rotation No hip flexion >90 degrees No internal rotation - Diet - Liquid Texture Continue Regular - Tube Feed Continue N/A - Diet Type Continue Regular - Posterior Hip Precaution No adduction across midline No external rotation No hip flexion >90 degrees No internal rotation No wheel chair propulsion - Weight Bearing Precaution TTWB left LE - Skin care per protocol - Diet - Solid Texture Continue Regular - Shower allowing shower FUNCTIONAL STATUS: UPDATED AT WEEKLY TEAM CONFERENCE - Bladder Same accident frequency: 7-Ind - No accidents in the past 7 days - Bowel Same accident frequency: 7-Ind - No accidents in the past 7 days - Walking Same score based on distance walked: 0(N/A) - Wheelchair Same score based on distance traveled: 0(N/A) FUNCTIONAL STATUS: - Self-Care A. Eating Ind B. Grooming sup C. Bathing Katharina D. Dressing - Upper Katharina E. Dressing - Lower modA F. Toileting Katharina - Sphincter Control G. Bladder control Lamont H. Bowel control Lamont - Transfers Control I. Bed/Chair/Wheelchair maxA J. Toilet maxA K. Tub/Shower maxA - Locomotion L. Walk/Wheelchair (B) modA M. Stairs maxA - Communication N. Comprehension (B) Lamont O. Expression (B) Lamont - Social Cognition P. Social Interaction Lamont Q. Problem Solving Lamont R. Memory Lamont - Endurance Poor - Balance Poor - Safety Awareness Fair QI SCORES: - Self-Care A. Eating 05-Setup or clean-up assistance B. Oral hygiene 05-Setup or clean-up assistance C. Toileting hygiene 03-Partial/moderate assistance E. Shower/bathe self 02-Substantial/maximal assistance F. Upper body dressing 05-Setup or clean-up assistance G. Lower body dressing 02-Substantial/maximal assistance H. Putting on/taking off footwear 02-Substantial/maximal assistance - Mobility A. Roll left and right 03-Partial/moderate assistance B. Sit to lying 03-Partial/moderate assistance C. Lying to sitting on side of bed 03-Partial/moderate assistance D. Sit to stand 88-Not attempted due to medical condition or safety concerns E. Chair/rub-ya-rmthg transfer 88-Not attempted due to medical condition or safety concerns F. Toilet transfer 88-Not attempted due to medical condition or safety concerns G. Car transfer 88-Not attempted due to medical condition or safety concerns I. Walk 10 feet 88-Not attempted due to medical condition or safety concerns J. Walk 50 feet with two turns 88-Not attempted due to medical condition or safety concerns K. Walk 150 feet 88-Not attempted due to medical condition or safety concerns L. Walking 10 feet on uneven surfaces 88-Not attempted due to medical condition or safety concerns M. 1 step (curb) 88-Not attempted due to medical condition or safety concerns N. 4 steps 88-Not attempted due to medical condition or safety concerns O. 12 steps 88-Not attempted due to medical condition or safety concerns P. Picking up object 88-Not attempted due to medical condition or safety concerns R. Wheel 50 feet with two turns 09-Not applicable S. Wheel 150 feet 09-Not applicable - Bladder and Bowel Bladder continence 0-Always continent Bowel continence 0-Always continent CURRENT [facility]. DEFICITS: Self-Care and Mobility SIGNATURE PANEL: (CDT)
[2022-08-22] MEDS: CRANBERRY FRUIT EXTRACT 200 MG CAP PO SCH (21:07)
[2022-08-22] MEDS: ROSUVASTATIN 10 MG TAB PO SCH (21:07)
[2022-08-22] MEDS: DOCUSATE NA/SENNA CONC 1 TAB PO SCH (21:07)
[2022-08-22] MEDS: BISOPROLOL 5 MG TABLET PO SCH (21:09)
[2022-08-22] MEDS: JUVEN PACKET PO SCH (21:09)
[2022-08-23] MEDS: APIXABAN 2.5 MG TABLET PO SCH ×2 (07:29→20:21)
[2022-08-23] MEDS: ENSURE HIGH PROTEIN 237 ML CAN PO SCH ×3 (08:00→20:21)
[2022-08-23] MEDS: JUVEN PACKET PO SCH ×2 (08:00→20:00)
[2022-08-23] MEDS: LIDOCAINE 4% PATCH TOP SCH (08:48)
[2022-08-23] MEDS: MAGNESIUM OXIDE 400 MG TAB PO SCH ×2 (08:50→20:22)
[2022-08-23] MEDS: CRANBERRY FRUIT EXTRACT 200 MG CAP PO SCH ×2 (08:50→20:21)
[2022-08-23] MEDS: LOSARTAN POTASSIUM 50 MG TABLET PO SCH (08:52)
[2022-08-23] MEDS: TRIAMCINOLONE ACET 0.1% CREAM 80 GM TOP SCH ×2 (08:53→20:00)
[2022-08-23] MEDS: TRAMADOL HCL 50 MG TAB PO PRN ×3 (08:56→20:39)
[2022-08-23] MEDS: AMLODIPINE 5 MG TAB PO SCH ×2 (09:22→20:00)
--- NOTE | 2022-08-23 09:58 | P.RH.PN ---
Estimated Length of Stay: 17 Expected Discharge Date: 09/06/22 Discharge Disposition Plan: Home Family Support: Yes Care Home Goal: Mobility, Transfers, Self Care Vital Signs: Last Vital Signs Temp 98.2 F 08/22/22 20:00 Pulse 83 08/23/22 09:22 Resp 18 08/23/22 08:56 BP 158/67 H 08/23/22 09:22 Pulse Ox 95 08/23/22 08:56 Laboratory: Laboratory Last Values WBC 7.50 K/uL (4.3-10.9) 08/21/22 04:15 RBC 2.81 M/uL (3.86-4.86) L 08/21/22 04:15 Hgb 10.4 g/dL (12.0-15.0) L 08/21/22 04:15 Hct 30.3 % (36.0-45.0) L 08/21/22 04:15 MCV 107.9 fL (80-100) H 08/21/22 04:15 MCH 37.1 pg (27.0-35.0) H 08/21/22 04:15 MCHC 34.4 g/dL (32.0-36.0) 08/21/22 04:15 RDW 18.5 % (12.1-15.2) H 08/21/22 04:15 Plt Count 518 K/uL (152-406) H 08/21/22 04:15 MPV 7.7 fL (7.6-11.3) 08/21/22 04:15 Neutrophils % 62.4 % (41.7-73.7) 08/21/22 04:15 Lymphocytes % 15.6 % (15.3-44.8) 08/21/22 04:15 Monocytes % 16.6 % (3.3-12.3) H 08/21/22 04:15 Eosinophils % 5.0 % (0-4.4) H 08/21/22 04:15 Basophils % 0.4 % (0-1.3) 08/21/22 04:15 Absolute Neutrophils 4.7 K/uL (1.8-8.0) 08/21/22 04:15 Absolute Lymphocytes 1.2 K/uL (0.7-4.9) 08/21/22 04:15 Absolute Monocytes 1.2 K/uL (0.1-1.3) 08/21/22 04:15 Absolute Eosinophils 0.4 K/uL (0-0.5) 08/21/22 04:15 Absolute Basophils 0.0 K/uL (0-0.5) 08/21/22 04:15 Platelet Estimate Incr 08/21/22 04:15 Macrocytosis 1+ 08/21/22 04:15 Morphology Comment Noted (NOT SEEN) 08/21/22 04:15 Sodium 133 mmol/L (136-145) L 08/21/22 04:15 Potassium 5.1 mmol/L (3.5-5.1) 08/21/22 04:15 Chloride 102 mmol/L (98-107) 08/21/22 04:15 Carbon Dioxide 28 mmol/L (21-32) 08/21/22 04:15 Anion Gap 8.1 mEq/L (5.0-15.0) 08/21/22 04:15 BUN 18 mg/dL (7-18) 08/21/22 04:15 Creatinine 0.74 mg/dL (0.55-1.3) 08/21/22 04:15 Est GFR (CKD-EPI) 89 ml/min (=/>90) L 08/21/22 04:15 Glucose 112 mg/dL (74-106) H 08/21/22 04:15 POC Glucose 101 mg/dL (65-120) 08/21/22 18:38 Calcium 9.0 mg/dL (8.5-10.1) 08/21/22 04:15 Magnesium 1.9 mg/dL (1.8-2.4) 08/21/22 04:15 Albumin 2.4 g/dL (3.4-5.0) L 08/21/22 04:15 Prealbumin 7.7 mg/dL (20-40) L 08/21/22 04:15 Urine Color Yellow (Yellow) 08/20/22 18:35 Urine Clarity Clear (Clear) 08/20/22 18:35 Urine pH 6.5 (5.0-7.0) 08/20/22 18:35 Ur Specific [place] 1.014 (1.005-1.030) 08/20/22 18:35 Glucose (UA)(Auto) Negative (Negative) 08/20/22 18:35 Urine Ketones Negative (Negative) 08/20/22 18:35 Urine Blood Negative (Negative) 08/20/22 18:35 Urine Nitrite Negative (Negative) 08/20/22 18:35 Urine Bilirubin Negative (Negative) 08/20/22 18:35 Urine Urobilinogen Normal (Normal) 08/20/22 18:35 Ur Leukocyte Esterase 250 Aminata/uL (Negative) H 08/20/22 18:35 Urine WBC <5 /HPF (<5) 08/20/22 18:35 Ur Squamous Epith Cells <5 /HPF (None Seen) 08/20/22 18:35 Urine Total Protein Trace (Negative) H 08/20/22 18:35 Smear Scan Ok (OK) 08/21/22 04:15 Weight: 139 lb Wound Present: Yes Closed Surgical Incision Present: Yes Negative Pressure Wound Therapy Present: No Physician Update: UA show ESBL. Will repeat. On cranberry pills. Less anxiety. Transfer to for the first time. Sitting on edge of bed unsupported. Done a sponge bath. She felt dizzing. Will have the therapy do the Leigha maneuver. Functional Improvement: Patient showed progress today w/ participation, and decreased anxiety toward therapy. Summary: Patient's care plan and usp goals have been reviewed and revised as necessary. Please see the Rehabilitation Signature page for all necessary signatures.
[2022-08-23 17:01] LABS: Specific Gravity 1.013 (1.005-1.030); Urine Bacteria <20 /HPF (<20); Urine Bilirubin NEGATIVE (Negative); Urine Blood Negative (Negative); Urine Clarity Clear (Clear); Urine Color Yellow (Yellow); Urine Glucose NEGATIVE (Negative); Urine Mucus Slight /HPF (None Seen); Urine Protein TRACE (Negative); Urine RBC <5 /HPF (None Seen); Urine Urobilinogen Normal (Normal)
[2022-08-23] MEDS: ROSUVASTATIN 10 MG TAB PO SCH (20:23)
[2022-08-23] MEDS: DOCUSATE NA/SENNA CONC 1 TAB PO SCH (20:24)
[2022-08-23] MEDS: BISOPROLOL 5 MG TABLET PO SCH (20:24)
--- NOTE | 2022-08-23 20:42 | PN ---
Date of Progress Note: 08/22/2022 Subjective: The patient was seen this morning for followup. No new complaints or problems reported by her. Lying in bed, not in distress. Objective: Vital Signs: Reviewed. HEENT: Unremarkable. Lungs: Clear to auscultation. Heart: Sounds normal. Abdomen: Soft. Bowel sounds normal. No guarding, rigidity, tenderness, or distention. Extremities: No leg edema. Impression: 1.Left hip intertrochanteric fracture. 2.Hypertension. 3.Hyperlipidemia. 4.Lung cancer. 5.Anemia due to acute blood loss. Plan: We will go ahead and continue current medication. Continue current anticoagulation therapy. The patient's pain is well controlled with current pain medicine and continue physical therapy under guidance of Dr. King. I will see her tomorrow for followup. BETH/MODL Voice ID: [id number] Report ID: [id number]
[2022-08-24] MEDS: LOSARTAN POTASSIUM 50 MG TABLET PO SCH (08:00)
[2022-08-24] MEDS: JUVEN PACKET PO SCH ×2 (08:00→20:00)
[2022-08-24] MEDS: CRANBERRY FRUIT EXTRACT 200 MG CAP PO SCH ×3 (08:00→20:02)
[2022-08-24] MEDS: ENSURE HIGH PROTEIN 237 ML CAN PO SCH ×2 (08:00→20:00)
[2022-08-24] MEDS: LIDOCAINE 4% PATCH TOP SCH (08:12)
[2022-08-24] MEDS: MAGNESIUM OXIDE 400 MG TAB PO SCH ×2 (08:13→20:04)
[2022-08-24] MEDS: APIXABAN 2.5 MG TABLET PO SCH ×2 (08:13→20:03)
[2022-08-24] MEDS: AMLODIPINE 5 MG TAB PO SCH ×2 (08:14→20:03)
[2022-08-24] MEDS: TRIAMCINOLONE ACET 0.1% CREAM 80 GM TOP SCH (08:15)
[2022-08-24] MEDS: TRAMADOL HCL 50 MG TAB PO PRN (08:16)
--- NOTE | 2022-08-24 10:34 | PN ---
Date of Progress Note: 08/24/2022 Subjective: The patient was seen this morning for followup. No new complaints or problems reported by the patient. She was lying in bed, not in distress. Objective: Vital Signs: Reviewed. HEENT: Unremarkable. Lungs: Clear to auscultation. Heart: Sounds normal. Abdomen: Soft. Bowel sounds normal. No guarding, rigidity, tenderness, or distention. Extremities: No leg edema. Laboratory Data: Repeat urinalysis done yesterday and this was a straight cath specimen, shows 75 le ukocyte esterase, WBC 5-10, bacteria less than 20, RBC less than 5. Impression: 1.Left hip intertrochanteric fracture. 2.Acute blood loss anemia. 3.Rule out urinary tract infection. Plan: We will follow up on the culture results. The patient denies any hematuria or any cloudy urin e. She reports that she has very slight burning sensation on urination today, otherwise no complaint s. We will follow up on the urine culture and make a decision whether to prescribe her any antibioti cs or not. Discussed with her. Continue current anticoagulation for DVT prophylaxis. BETH/MODL Voice ID: [id number] Report ID: [id number]
--- NOTE | 2022-08-24 10:45 | PN ---
Date of Progress Note: 08/23/2022 Subjective: The patient was seen this morning for followup. She was lying in bed, not in distress. Denies any complaints. Objective: Vital Signs: Reviewed. HEENT: Unremarkable. Lungs: Clear to auscultation. Heart: Sounds normal. Abdomen: Soft. Bowel sounds normal. No guarding, rigidity, tenderness, or distention. Extremities: No leg edema. Laboratory Data: The patient's urine culture was reported as E coli, which is ESBL and proteus, whic h is also ESBL. This is the result of urine collected on 08/20/2022 when she was admitted to rehab a nd she did any urinary complaints at that time. This was not a catheterized specimen and urinalysis done at that time showed 250 leukocytes, less than 5 WBC. Impression: 1.Left hip intertrochanteric fracture. 2.Hypertension. 3.Acute blood loss anemia. 4.Rule out urinary tract infection. Plan: Considering the patient's urine result, I am not convinced that this is actually indicating tr ue infection so I have advised nursing staff to repeat another urinalysis and urine culture. At this time, we should collect a catheterized urine specimen so straight cath was requested for collection of urine specimen and we will follow up on that result. I will see her shyann macias for followup. BETH/MODL Voice ID: [id number] Report ID: [id number]
[2022-08-24] MEDS ORDERED: TRIAMCINOLONE ACET 0.1% CREAM 80 GM TOP PRN (12:32)
[2022-08-24] MEDS: DOCUSATE NA/SENNA CONC 1 TAB PO SCH ×2 (20:02→20:09)
[2022-08-24] MEDS: ROSUVASTATIN 10 MG TAB PO SCH (20:02)
[2022-08-24] MEDS: BISOPROLOL 5 MG TABLET PO SCH (20:03)
[2022-08-25 04:44] LABS: Absolute Lymphocytes (CBC) 1.3 K/uL (0.7-4.9); Hematocrit 28.8 % (36.0-45.0); Lymphocytes % 13.7 % (15.3-44.8); MCV 105.3 fL (80-100); MPV 7.5 fL (7.6-11.3); RBC Red Blood Cell Count 2.73 M/uL (3.86-4.86)
[2022-08-25 04:50] LABS: Blood Morphology Comment NOTED (NOT SEEN); Macrocytosis 1+; Platelet Estimate INCR; Platelets, Giant PRESENT; White Blood Cell Scan OK (OK)
[2022-08-25 04:57] LABS: Potassium 3.9 mmol/L (3.5-5.1)
[2022-08-25] MEDS: LIDOCAINE 4% PATCH TOP SCH (07:46)
[2022-08-25] MEDS: AMLODIPINE 5 MG TAB PO SCH ×2 (07:46→19:55)
[2022-08-25] MEDS: MAGNESIUM OXIDE 400 MG TAB PO SCH ×2 (07:47→19:55)
[2022-08-25] MEDS: LOSARTAN POTASSIUM 50 MG TABLET PO SCH (07:47)
[2022-08-25] MEDS: JUVEN PACKET PO SCH ×2 (07:48→19:56)
[2022-08-25] MEDS: ENSURE HIGH PROTEIN 237 ML CAN PO SCH ×2 (07:48→19:56)
[2022-08-25] MEDS: APIXABAN 2.5 MG TABLET PO SCH ×2 (07:48→19:56)
[2022-08-25] MEDS: CRANBERRY FRUIT EXTRACT 200 MG CAP PO SCH ×2 (07:48→19:55)
[2022-08-25] MEDS: SODIUM CHLORIDE 1 GM TAB PO SCH ×2 (10:23→17:03)
--- NOTE | 2022-08-25 14:16 | PN ---
Date of Progress Note: 08/25/2022 Subjective: The patient was seen this morning for followup. No new complaints or problems reported. She reports that slight discomfort and burning on urination problem that she had yesterday is elva r today. No abdominal pain, nausea, vomiting. Objective: Vital Signs: Reviewed. HEENT: Unremarkable. Lungs: Clear to auscultation. Heart: Sounds normal. Abdomen: Soft. Bowel sounds normal. No guarding, rigidity, tenderness, distention. Extremities: No leg edema. Laboratory Data: White count 9.1, hemoglobin 10.1, platelets 678. Sodium 131, potassium 3.9, chlori de 96, bicarb 29, BUN 14, creatinine 0.64, glucose 122. Urine culture so far negative. Impression: 1.Left hip intertrochanteric fracture. 2.Rule out urinary tract infection. 3.Acute blood loss anemia. 4.Hyponatremia. Plan: For hyponatremia, no need for further intervention. Repeat urinalysis which was done a couple of days ago and the culture that was done with that so far has not grown any bacteria. We will go a head and continue current DVT prophylaxis, continue current pain medications, and I will see her shyann rrow for followup. Hyponatremia will not require any intervention at this point. BETH/MODL Voice ID: [id number] Report ID: [id number]
[2022-08-25] MEDS: ROSUVASTATIN 10 MG TAB PO SCH (19:55)
[2022-08-25] MEDS: DOCUSATE NA/SENNA CONC 1 TAB PO SCH ×2 (19:55→20:05)
[2022-08-25] MEDS: BISOPROLOL 5 MG TABLET PO SCH (19:56)
[2022-08-26 04:29] LABS: Absolute Lymphocytes (CBC) 1.4 K/uL (0.7-4.9); Hematocrit 30.2 % (36.0-45.0); Lymphocytes % 15.2 % (15.3-44.8); MPV 7.4 fL (7.6-11.3); RBC Red Blood Cell Count 2.84 M/uL (3.86-4.86)
[2022-08-26 04:30] LABS: MCV 106.5 fL (80-100)
[2022-08-26] MEDS: AMLODIPINE 5 MG TAB PO SCH ×2 (07:41→20:19)
[2022-08-26] MEDS: CRANBERRY FRUIT EXTRACT 200 MG CAP PO SCH ×2 (07:41→20:18)
[2022-08-26] MEDS: APIXABAN 2.5 MG TABLET PO SCH ×2 (07:42→20:14)
[2022-08-26] MEDS: LOSARTAN POTASSIUM 50 MG TABLET PO SCH (07:42)
[2022-08-26] MEDS: SODIUM CHLORIDE 1 GM TAB PO SCH ×2 (07:42→16:52)
[2022-08-26] MEDS: MAGNESIUM OXIDE 400 MG TAB PO SCH ×2 (07:42→20:16)
[2022-08-26] MEDS: JUVEN PACKET PO SCH ×2 (07:43→20:00)
[2022-08-26] MEDS: ENSURE HIGH PROTEIN 237 ML CAN PO SCH ×2 (07:43→20:00)
[2022-08-26] MEDS: TRAMADOL HCL 50 MG TAB PO PRN (08:31)
--- NOTE | 2022-08-26 08:32 | P.CNS ---
Date of Consult: 08/26/22 Reason for Consult: ingrown toenail Chief Complaint: Patient complained of pain and redness right great toe Allergies morphine Allergy (Intermediate, Verified 04/12/13 08:58) Rash codeine Allergy (Verified 07/11/22 13:34) Unknown etodolac Allergy (Verified 07/11/22 13:33) Rash hydrocodone Allergy (Verified 07/11/22 13:34) Unknown ibuprofen Allergy (Verified 07/11/22 13:34) Unknown nabumetone [From Relafen] Allergy (Verified 07/11/22 13:34) Unknown antinflammatory Allergy (Uncoded 04/14/16 16:00) Unknown Antihistamine Adverse Reaction (Uncoded 07/11/22 13:34) Unknown Home Medications: Amlodipine [Norvasc] 5 mg PO BID 08/15/22 bisoproloL fumarate [Zebeta] 5 mg PO DAILY 08/15/22 Acetaminophen [Tylenol Extra Strength] 500 mg PO Q6HP PRN 08/20/22 Apixaban [Eliquis *] 2.5 mg PO BID 08/20/22 Losartan Potassium [Cozaar] 25 mg PO DAILY 08/20/22 Mag Hydroxide 8% [Milk Of Magnesia*] 30 ml PO DAILY PRN 08/20/22 Magnesium Oxide [Mag-Oxide] 400 mg PO DAILY 08/20/22 Ondansetron [Zofran (Odt)*] 4 mg PO Q4HP PRN 08/20/22 Rosuvastatin Calcium [Crestor] 20 mg PO BEDTIME 08/20/22 Sennosides/Docusate Sodium [Senna-Docusate Sodium Tablet] 2 tab PO BEDTIME 08/20/22 Tramadol HCl [Ultram] 50 mg PO Q6HP PRN 08/20/22 Triamcinolone 0.1% Crm [Kenalog 0.1% Cream*] 1 gisell BID 08/20/22 - Past Medical/Surgical History Diabetic: No -: pre-diabetic -: HTN -: anemia -: RIGHT HIP JOINT REPLACEMENT -: VASCULAR SURGERY BLE STENTS -: RIGHT WRIST R/T FRACTURE-METAL -: LEFT WRIST R/T TRAUMA -: x2 -: ganglion cyst removal - Social History Smoking Status: Current some day smoker Alcohol use: No CD- Drugs: Yes Caffeine use: No Place of Residence: Home Review of Systems 10-point ROS is otherwise unremarkable Physical Examination Temp Pulse Resp BP Pulse Ox 97.0 F 68 18 135/61 98 08/26/22 07:29 08/26/22 07:41 08/26/22 07:29 08/26/22 07:41 08/26/22 07:29 General: Alert, In no apparent distress, Oriented x3 Cardiovascular: No edema, Abnormal pulses (0/4 dp/pt pulse bilateral) Capillary refill: >2 Seconds Musculoskeletal: No clubbing, No swelling, No contractures, No erythema, No tenderness, No warmth Integumentary: Other (right great toe presents with no erythema, no edema, no pain on palpation) Neurological: Sensation intact Laboratory Data (last 24 hrs) 08/26/22 04:13: WBC 9.20, Hgb 10.2 L, Hct 30.2 L, Plt Count 861 H D - Problems (1) PAD (peripheral artery disease) Current Visit: No Status: Acute Conclusions/Impression: observe for signs and symptoms of infection
[2022-08-26] MEDS: LIDOCAINE 4% PATCH TOP SCH (09:59)
[2022-08-26 11:11] LABS: Anisocytosis 1+; Blood Morphology Comment NOTED (NOT SEEN); Macrocytosis 1+; Platelet Estimate INCR
--- NOTE | 2022-08-26 17:39 | R.PN ---
PROGRESS NOTES ENCOUNTER DATE AND TIME: 08/26/2022 17:35 (CDT) NAME NATHAN MONTEJO DATE OF : 1955 DATE OF ADMISSION: 08/20/2022 11:00 (CDT) S72.142 intertrochanteric fracture of left femurCHIEF COMPLAINT: Left hip fracture. SUBJECTIVE: Pt denied any Shortness of Breath. Pt denied any depression. WBC 9.2, Hgb 10.2, prealbumin 7.7, Na 131, glucose 122. Physical and occupational therapy done with moderate to maximum assistance due to pain and muscle spa sms. Therapeutic exercises done with minimum assistance. Ambulated 30' with CGA and TDWB. VITAL SIGNS Temperature: 97.0 F SBP/DBP: 135/61 Pulse: 68 Resp: 16 MEDICATION ALLERGIES: Morphine Codeine Advil Hydrocodone Antihistamines Nabumetone ENVIRONMENTAL ALLERGIES: - Substance Allergies None Known - Other Allergies None Known NURSING: - Shower allowing shower - Skin care per protocol PRECAUTIONS: - Anterior Hip Precaution No abduction No active extension No adduction across midline No external rotation No hip flexion >90 degrees No internal rotation - Posterior Hip Precaution No adduction across midline No external rotation No hip flexion >90 degrees No internal rotation No wheel chair propulsion - Weight Bearing Precaution TTWB left LE ACTIVITIES OOB only with supervision THERAPIES: - Dietary and Nutrition Adequate Nutrition. Nutritional Education. Nutritional Supplements. - Occupational Therapy Cognitive Retraining. Patient needs Occupational Therapy for a daily minimum of 1.5 hours at least 5 out of 7 days, to improve Activities of Daily Living, including: Eating, Grooming, Bathing, Dressing, Toileting, Toilet Transfers, Community Reintegration, Higher functional activities, Adaptive Equipme nt, Splinting, Household Tasks, and Other activities as determined. Visual Perceptual Training. - Physical Therapy Patient needs Physical Therapy for a daily minimum of 1.5 hours at least 5 out of 7 days, to improve: Mobility, Strengthening, Transfers, Stretching, ROM, Endurance, Ability to manage stairs, Gait, and Balance. PHYSICAL EXAM - Gen No apparent distress - Skin Left hip incision intact. No abnormalities - Eyes No abnormalities - ENMT No abnormalities - Neck No abnormalities - CVS RRR - Chest No abnormalities - Resp No wheezing - Abd + bowel sounds - GI Soft Deferred - No abnormalities - Ext Mild left lower extremity edema. - MSK 4+/5 weakness in left lower extremity - Neuro 4/5 strength left lower extremity. - Psych No abnormalities ASSESSMENT: Pt. is a 66 yo Right-handed WF.Her impairment category is Orthopaedic Disorders 08 - Unilateral Hip Fracture (07.11).Pre-morbidly, Pt. was independent/mod-I in Locomotion and Self-Care; and she had goo d Balance, Transfers Control, Endurance, and Safety Awareness.Currently, she has deficits of Locomoti on, Safety Awareness, Balance, Transfers Control, Self-Care, and Endurance.Pt. is now referred to [facility] for acute in-patient rehabilitation in order to maximize patient's fun ctional independence in activities of daily living, strength, ROM, and mobility.- Rehab Goal Patient has realistic goal of being discharged at assistance level 6-Lamont to reside at Home with Fam sebastien/Relatives. MDM/PLAN: - Physical Therapy Decreased range of motion - to improve, our physical therapists will perform initial evaluation of p t's status upon admission and devise an individualized program for increasing patient's Range of Skyler on. Inability to transfer - to improve, our physical therapists will perform initial evaluation of pt's status upon admission and devise an individualized program for Bed mobility Need for home safety evaluation - to improve, our physical therapists will perform initial evaluatio n of pt's status upon admission and devise an individualized program for Home Evaluation Need in caregiver upon discharge - to improve, our physical therapists will perform initial evaluati on of pt's status upon admission and devise an individualized program for Caregiver Training New precaution - to improve, our physical therapists will perform initial evaluation of pt's status upon admission and devise an individualized program for Patient precaution education Edema - to improve, our physical therapists will perform initial evaluation of pt's status upon admi ssion and devise an individualized program for Elevation Training, and Lymphedema Therapy Poor balance - to improve, our physical therapists will perform initial evaluation of pt's status up on admission and devise an individualized program for Balance Training Poor endurance - to improve, our physical therapists will perform initial evaluation of pt's status upon admission and devise an individualized program for Endurance Training Achieving independence - to improve, our physical therapists will perform initial evaluation of pt's status upon admission and devise an individualized program for Community Reintegration Activities - Occupational Therapy ADL deficits - to improve, our occupation therapists will perform initial evaluation of pt's status upon admission and devise an individualized program for Bathing, Bed mobility, Community Reintegratio n, Cooking, Dressing, Eating, Fine Motor Skills, Grooming, Homemaking, Kitchen Mobility, Laundry, Pat ient Education, Safety Awareness, Splinting - Positioning, Transfers(Toilet, Tub, Shower), and Wheel Chair Management Need for cardiac care nurse - to improve, our occupation therapists will perform initial evaluation of pt's status upon admission and devise an individualized program for Caregiver Training - Other See attached MAR (Medication Administration Record) - Anterior Hip Precaution No abduction No active extension No adduction across midline No external rotation No hip flexion >90 degrees No internal rotation - Diet - Liquid Texture Continue Regular - Tube Feed Continue N/A - Diet Type Continue Regular - Posterior Hip Precaution No adduction across midline No external rotation No hip flexion >90 degrees No internal rotation No wheel chair propulsion - Weight Bearing Precaution TTWB left LE - Skin care per protocol - Diet - Solid Texture Continue Regular - Shower allowing shower FUNCTIONAL STATUS: UPDATED AT WEEKLY TEAM CONFERENCE - Bladder Same accident frequency: 7-Ind - No accidents in the past 7 days - Bowel Same accident frequency: 7-Ind - No accidents in the past 7 days - Walking Same score based on distance walked: 0(N/A) - Wheelchair Same score based on distance traveled: 0(N/A) FUNCTIONAL STATUS: - Self-Care A. Eating Ind B. Grooming sup C. Bathing Katharina D. Dressing - Upper Katharina E. Dressing - Lower modA F. Toileting Katharina - Sphincter Control G. Bladder control Lamont H. Bowel control Lamont - Transfers Control I. Bed/Chair/Wheelchair maxA J. Toilet maxA K. Tub/Shower maxA - Locomotion L. Walk/Wheelchair (B) modA M. Stairs maxA - Communication N. Comprehension (B) Lamont O. Expression (B) Lamont - Social Cognition P. Social Interaction Lamont Q. Problem Solving Lamont R. Memory Lamont - Endurance Poor - Balance Poor - Safety Awareness Fair QI SCORES: - Self-Care A. Eating 05-Setup or clean-up assistance B. Oral hygiene 05-Setup or clean-up assistance C. Toileting hygiene 03-Partial/moderate assistance E. Shower/bathe self 02-Substantial/maximal assistance F. Upper body dressing 05-Setup or clean-up assistance G. Lower body dressing 02-Substantial/maximal assistance H. Putting on/taking off footwear 02-Substantial/maximal assistance - Mobility A. Roll left and right 03-Partial/moderate assistance B. Sit to lying 03-Partial/moderate assistance C. Lying to sitting on side of bed 03-Partial/moderate assistance D. Sit to stand 88-Not attempted due to medical condition or safety concerns E. Chair/pga-jp-qymml transfer 88-Not attempted due to medical condition or safety concerns F. Toilet transfer 88-Not attempted due to medical condition or safety concerns G. Car transfer 88-Not attempted due to medical condition or safety concerns I. Walk 10 feet 88-Not attempted due to medical condition or safety concerns J. Walk 50 feet with two turns 88-Not attempted due to medical condition or safety concerns K. Walk 150 feet 88-Not attempted due to medical condition or safety concerns L. Walking 10 feet on uneven surfaces 88-Not attempted due to medical condition or safety concerns M. 1 step (curb) 88-Not attempted due to medical condition or safety concerns N. 4 steps 88-Not attempted due to medical condition or safety concerns O. 12 steps 88-Not attempted due to medical condition or safety concerns P. Picking up object 88-Not attempted due to medical condition or safety concerns R. Wheel 50 feet with two turns 09-Not applicable S. Wheel 150 feet 09-Not applicable - Bladder and Bowel Bladder continence 0-Always continent Bowel continence 0-Always continent CURRENT FUNC. DEFICITS: Self-Care and Mobility SIGNATURE PANEL: (CDT)
[2022-08-26] MEDS: ACETAMINOPHEN 500 MG TAB PO PRN (19:02)
[2022-08-26] MEDS: BISOPROLOL 5 MG TABLET PO SCH (20:17)
[2022-08-26] MEDS: ROSUVASTATIN 10 MG TAB PO SCH (20:17)
[2022-08-26] MEDS: DOCUSATE NA/SENNA CONC 1 TAB PO SCH (20:21)
--- NOTE | 2022-08-27 01:22 | PN ---
Date of Progress Note: 08/26/2022 Subjective: Patient was seen this morning for followup. No new complaints or problems reported by h er. Her dysuria has improved. Objective: Vital Signs: Reviewed. HEENT: Unremarkable. Lungs: Clear to auscultation. Heart: Sounds normal. Abdomen: Soft. Bowel sounds normal. No guarding, rigidity, tenderness, or distention. Extremities: No leg edema. Laboratory Data: White count 9.2, hemoglobin 10.2, platelets 861. Impression: 1.Thrombocytosis. 2.Anemia due to acute blood loss. 3.Left hip intertrochanteric fracture. Plan: We will go ahead and continue current anticoagulation therapy for DVT prophylaxis. Her pain f rom left hip is much better and she is requiring less and less pain medication and I have asked her t o try Tylenol for mild pain instead of taking narcotic pain medication for mild pain. For her thromb ocytosis, we will request consultation from hematology service. Urine culture so far has remained ne gative. No evidence of any urinary tract infection. I will see her tomorrow for followup. BETH/MODL Voice ID: [id number] Report ID: [id number]
[2022-08-27] MEDS: ACETAMINOPHEN 500 MG TAB PO PRN ×3 (02:46→21:16)
[2022-08-27] MEDS: JUVEN PACKET PO SCH ×3 (08:00→19:44)
[2022-08-27] MEDS: ENSURE HIGH PROTEIN 237 ML CAN PO SCH ×3 (08:00→19:44)
[2022-08-27] MEDS: LIDOCAINE 4% PATCH TOP SCH (08:27)
[2022-08-27] MEDS: AMLODIPINE 5 MG TAB PO SCH ×2 (08:28→19:33)
[2022-08-27] MEDS: CRANBERRY FRUIT EXTRACT 200 MG CAP PO SCH ×2 (08:28→19:33)
[2022-08-27] MEDS: APIXABAN 2.5 MG TABLET PO SCH ×2 (08:28→19:33)
[2022-08-27] MEDS: SODIUM CHLORIDE 1 GM TAB PO SCH ×2 (08:29→17:19)
[2022-08-27] MEDS: LOSARTAN POTASSIUM 50 MG TABLET PO SCH (08:30)
[2022-08-27] MEDS: MAGNESIUM OXIDE 400 MG TAB PO SCH ×2 (08:36→19:33)
[2022-08-27 08:53] LABS: Absolute Lymphocytes (CBC) 1.6 K/uL (0.7-4.9); Lymphocytes % 17.4 % (15.3-44.8); MPV 7.6 fL (7.6-11.3); RBC Red Blood Cell Count 2.93 M/uL (3.86-4.86)
--- NOTE | 2022-08-27 18:13 | R.PN ---
PROGRESS NOTES ENCOUNTER DATE AND TIME: 08/27/2022 18:05 (CDT) NAME NATHAN MONTEJO DATE OF : 1955 DATE OF ADMISSION: 08/20/2022 11:00 (CDT) S72.142 intertrochanteric fracture of left femurCHIEF COMPLAINT: Left hip fracture. SUBJECTIVE: Pt denied any Shortness of Breath. Pt denied any depression. WBC 9.2, Hgb 10.7, prealbumin 7.7, Na 131, glucose 122. Physical and occupational therapy done with moderate to maximum assistance due to pain and muscle spa sms. Therapeutic exercises done with minimum assistance. Ambulated 225' with SBA and TDWB. Peripheral smear show macrocytic anemia and thrombocytosis. No pathological changes noted VITAL SIGNS Temperature: 97.0 F SBP/DBP: 123/59 Pulse: 60 Resp: 16 MEDICATION ALLERGIES: Morphine Codeine Advil Hydrocodone Antihistamines Nabumetone ENVIRONMENTAL ALLERGIES: - Substance Allergies None Known - Other Allergies None Known NURSING: - Shower allowing shower - Skin care per protocol PRECAUTIONS: - Anterior Hip Precaution No abduction No active extension No adduction across midline No external rotation No hip flexion >90 degrees No internal rotation - Posterior Hip Precaution No adduction across midline No external rotation No hip flexion >90 degrees No internal rotation No wheel chair propulsion - Weight Bearing Precaution TTWB left LE ACTIVITIES OOB only with supervision THERAPIES: - Dietary and Nutrition Adequate Nutrition. Nutritional Education. Nutritional Supplements. - Occupational Therapy Cognitive Retraining. Patient needs Occupational Therapy for a daily minimum of 1.5 hours at least 5 out of 7 days, to improve Activities of Daily Living, including: Eating, Grooming, Bathing, Dressing, Toileting, Toilet Transfers, Community Reintegration, Higher functional activities, Adaptive Equipme nt, Splinting, Household Tasks, and Other activities as determined. Visual Perceptual Training. - Physical Therapy Patient needs Physical Therapy for a daily minimum of 1.5 hours at least 5 out of 7 days, to improve: Mobility, Strengthening, Transfers, Stretching, ROM, Endurance, Ability to manage stairs, Gait, and Balance. PHYSICAL EXAM - Gen No apparent distress - Skin Left hip incision intact. No abnormalities - Eyes No abnormalities - ENMT No abnormalities - Neck No abnormalities - CVS RRR - Chest No abnormalities - Resp No wheezing - Abd + bowel sounds - GI Soft Deferred - No abnormalities - Ext Mild left lower extremity edema. - MSK 4+/5 weakness in left lower extremity - Neuro 4/5 strength left lower extremity. - Psych No abnormalities ASSESSMENT: Pt. is a 66 yo Right-handed WF.Her impairment category is Orthopaedic Disorders 08 - Unilateral Hip Fracture (07.11).Pre-morbidly, Pt. was independent/mod-I in Locomotion and Self-Care; and she had goo d Balance, Transfers Control, Endurance, and Safety Awareness.Currently, she has deficits of Locomoti on, Safety Awareness, Balance, Transfers Control, Self-Care, and Endurance.Pt. is now referred to [facility] for acute in-patient rehabilitation in order to maximize patient's fun ctional independence in activities of daily living, strength, ROM, and mobility.- Rehab Goal Patient has realistic goal of being discharged at assistance level 6-Lamont to reside at Home with Fam sebastien/Relatives. MDM/PLAN: - Physical Therapy Decreased range of motion - to improve, our physical therapists will perform initial evaluation of p t's status upon admission and devise an individualized program for increasing patient's Range of Skyler on. Inability to transfer - to improve, our physical therapists will perform initial evaluation of pt's status upon admission and devise an individualized program for Bed mobility Need for home safety evaluation - to improve, our physical therapists will perform initial evaluatio n of pt's status upon admission and devise an individualized program for Home Evaluation Need in caregiver upon discharge - to improve, our physical therapists will perform initial evaluati on of pt's status upon admission and devise an individualized program for Caregiver Training New precaution - to improve, our physical therapists will perform initial evaluation of pt's status upon admission and devise an individualized program for Patient precaution education Edema - to improve, our physical therapists will perform initial evaluation of pt's status upon admi ssion and devise an individualized program for Elevation Training, and Lymphedema Therapy Poor balance - to improve, our physical therapists will perform initial evaluation of pt's status up on admission and devise an individualized program for Balance Training Poor endurance - to improve, our physical therapists will perform initial evaluation of pt's status upon admission and devise an individualized program for Endurance Training Achieving independence - to improve, our physical therapists will perform initial evaluation of pt's status upon admission and devise an individualized program for Community Reintegration Activities - Occupational Therapy ADL deficits - to improve, our occupation therapists will perform initial evaluation of pt's status upon admission and devise an individualized program for Bathing, Bed mobility, Community Reintegratio n, Cooking, Dressing, Eating, Fine Motor Skills, Grooming, Homemaking, Kitchen Mobility, Laundry, Pat ient Education, Safety Awareness, Splinting - Positioning, Transfers(Toilet, Tub, Shower), and Wheel Chair Management Need for healthcare corporate account director - to improve, our occupation therapists will perform initial evaluation of pt's status upon admission and devise an individualized program for Caregiver Training - Other See attached MAR (Medication Administration Record) - Anterior Hip Precaution No abduction No active extension No adduction across midline No external rotation No hip flexion >90 degrees No internal rotation - Diet - Liquid Texture Continue Regular - Tube Feed Continue N/A - Diet Type Continue Regular - Posterior Hip Precaution No adduction across midline No external rotation No hip flexion >90 degrees No internal rotation No wheel chair propulsion - Weight Bearing Precaution TTWB left LE - Skin care per protocol - Diet - Solid Texture Continue Regular - Shower allowing shower FUNCTIONAL STATUS: UPDATED AT WEEKLY TEAM CONFERENCE - Bladder Same accident frequency: 7-Ind - No accidents in the past 7 days - Bowel Same accident frequency: 7-Ind - No accidents in the past 7 days - Walking Same score based on distance walked: 0(N/A) - Wheelchair Same score based on distance traveled: 0(N/A) FUNCTIONAL STATUS: - Self-Care A. Eating Ind B. Grooming sup C. Bathing Katharina D. Dressing - Upper Katharina E. Dressing - Lower modA F. Toileting Katharina - Sphincter Control G. Bladder control Lamont H. Bowel control Lamont - Transfers Control I. Bed/Chair/Wheelchair maxA J. Toilet maxA K. Tub/Shower maxA - Locomotion L. Walk/Wheelchair (B) modA M. Stairs maxA - Communication N. Comprehension (B) Lamont O. Expression (B) Lamont - Social Cognition P. Social Interaction Lamont Q. Problem Solving Lamont R. Memory Lamont - Endurance Poor - Balance Poor - Safety Awareness Fair QI SCORES: - Self-Care A. Eating 05-Setup or clean-up assistance B. Oral hygiene 05-Setup or clean-up assistance C. Toileting hygiene 03-Partial/moderate assistance E. Shower/bathe self 02-Substantial/maximal assistance F. Upper body dressing 05-Setup or clean-up assistance G. Lower body dressing 02-Substantial/maximal assistance H. Putting on/taking off footwear 02-Substantial/maximal assistance - Mobility A. Roll left and right 03-Partial/moderate assistance B. Sit to lying 03-Partial/moderate assistance C. Lying to sitting on side of bed 03-Partial/moderate assistance D. Sit to stand 88-Not attempted due to medical condition or safety concerns E. Chair/rly-on-butpu transfer 88-Not attempted due to medical condition or safety concerns F. Toilet transfer 88-Not attempted due to medical condition or safety concerns G. Car transfer 88-Not attempted due to medical condition or safety concerns I. Walk 10 feet 88-Not attempted due to medical condition or safety concerns J. Walk 50 feet with two turns 88-Not attempted due to medical condition or safety concerns K. Walk 150 feet 88-Not attempted due to medical condition or safety concerns L. Walking 10 feet on uneven surfaces 88-Not attempted due to medical condition or safety concerns M. 1 step (curb) 88-Not attempted due to medical condition or safety concerns N. 4 steps 88-Not attempted due to medical condition or safety concerns O. 12 steps 88-Not attempted due to medical condition or safety concerns P. Picking up object 88-Not attempted due to medical condition or safety concerns R. Wheel 50 feet with two turns 09-Not applicable S. Wheel 150 feet 09-Not applicable - Bladder and Bowel Bladder continence 0-Always continent Bowel continence 0-Always continent CURRENT FUNC. DEFICITS: Self-Care and Mobility SIGNATURE PANEL: (CDT)
[2022-08-27] MEDS: ROSUVASTATIN 10 MG TAB PO SCH (19:33)
[2022-08-27] MEDS: DOCUSATE NA/SENNA CONC 1 TAB PO SCH ×2 (19:34→19:45)
[2022-08-27] MEDS: BISOPROLOL 5 MG TABLET PO SCH (19:34)
--- NOTE | 2022-08-27 23:04 | PN ---
Date of Progress Note: 08/27/2022 Subjective: Patient was seen this morning for followup. No new complaints or problems reported by raghavendra sneed. She denies any constipation. No dysuria. Objective: Vital Signs: Reviewed. HEENT: Unremarkable. Lungs: Clear to auscultation. Heart: Sounds normal. Abdomen: Soft. Bowel sounds normal. No guarding, rigidity, tenderness, or distention. Extremities: No leg edema. Impression: 1.Left hip intertrochanteric fracture. 2.Acute blood loss anemia. 3.Hypertension. Plan: The patient's platelet count was elevated. We will go ahead and repeat CBC today. We will co ntinue current anticoagulation therapy for DVT prophylaxis. Her pain is well controlled with Tylenol and tramadol on an as needed basis. Continue to go on physical therapy under guidance of Dr. Yuli shay and I will see her tomorrow for followup. BETH/MODL Voice ID: [id number] Report ID: [id number]
[2022-08-28] MEDS ORDERED: DOCUSATE NA/SENNA CONC 1 TAB PO PRN (05:01)
[2022-08-28] MEDS: ENSURE HIGH PROTEIN 237 ML CAN PO SCH ×2 (08:00→20:00)
[2022-08-28] MEDS: JUVEN PACKET PO SCH ×2 (08:00→20:00)
[2022-08-28] MEDS: LIDOCAINE 4% PATCH TOP SCH (08:07)
[2022-08-28] MEDS: APIXABAN 2.5 MG TABLET PO SCH ×2 (08:08→20:10)
[2022-08-28] MEDS: MAGNESIUM OXIDE 400 MG TAB PO SCH ×2 (08:08→20:09)
[2022-08-28] MEDS: AMLODIPINE 5 MG TAB PO SCH ×2 (08:08→20:10)
[2022-08-28] MEDS: CRANBERRY FRUIT EXTRACT 200 MG CAP PO SCH ×2 (08:08→20:09)
[2022-08-28] MEDS: LOSARTAN POTASSIUM 50 MG TABLET PO SCH (08:09)
[2022-08-28] MEDS: ACETAMINOPHEN 500 MG TAB PO PRN (08:09)
[2022-08-28] MEDS: SODIUM CHLORIDE 1 GM TAB PO SCH ×2 (08:10→16:14)
[2022-08-28 11:14] LABS: Specific Gravity 1.006 (1.005-1.030); Urine Bacteria <20 /HPF (<20); Urine Bilirubin NEGATIVE (Negative); Urine Blood Negative (Negative); Urine Clarity Clear (Clear); Urine Color Colorless (Yellow); Urine Glucose NEGATIVE (Negative); Urine Protein NEGATIVE (Negative); Urine RBC <5 /HPF (None Seen); Urine Urobilinogen Normal (Normal)
[2022-08-28] MEDS: BISOPROLOL 5 MG TABLET PO SCH (20:09)
[2022-08-28] MEDS: ROSUVASTATIN 10 MG TAB PO SCH (20:09)
[2022-08-29 04:38] LABS: Absolute Lymphocytes (CBC) 1.5 K/uL (0.7-4.9); Hematocrit 29.5 % (36.0-45.0); Lymphocytes % 16.2 % (15.3-44.8); MPV 7.2 fL (7.6-11.3)
[2022-08-29 04:44] LABS: MCV 105.4 fL (80-100)
[2022-08-29 04:59] LABS: Albumin 2.7 g/dL (3.4-5.0); Magnesium 1.9 mg/dL (1.8-2.4); Potassium 4.1 mmol/L (3.5-5.1); Prealbumin 10.6 mg/dL (20-40)
[2022-08-29] MEDS: LIDOCAINE 4% PATCH TOP SCH (06:41)
[2022-08-29] MEDS: MAGNESIUM OXIDE 400 MG TAB PO SCH ×2 (07:59→19:46)
[2022-08-29] MEDS: ENSURE HIGH PROTEIN 237 ML CAN PO SCH ×2 (08:00→19:46)
[2022-08-29] MEDS: SODIUM CHLORIDE 1 GM TAB PO SCH ×2 (08:00→17:14)
[2022-08-29] MEDS: AMLODIPINE 5 MG TAB PO SCH ×2 (08:00→19:46)
[2022-08-29] MEDS: LOSARTAN POTASSIUM 50 MG TABLET PO SCH (08:00)
[2022-08-29] MEDS: JUVEN PACKET PO SCH ×2 (08:00→19:46)
[2022-08-29] MEDS: APIXABAN 2.5 MG TABLET PO SCH ×2 (08:00→19:46)
[2022-08-29] MEDS: CRANBERRY FRUIT EXTRACT 200 MG CAP PO SCH ×2 (08:00→19:46)
--- NOTE | 2022-08-29 12:06 | PN ---
Date of Progress Note: 08/28/2022 Subjective: The patient was seen this morning for followup. She denies any complaints. No chest pa in, shortness of breath. No abdominal pain. No nausea, no vomiting. Denies any constipation proble m and has a bowel movement on a daily basis. Objective: Vital Signs: Reviewed. HEENT: Unremarkable. Lungs: Clear to auscultation. Heart: Sounds normal. Abdomen: Soft. Bowel sounds normal. No guarding, rigidity, tenderness, or distention. Extremities: No leg edema. Laboratory Data: Yesterday; white count 9.2, hemoglobin 10.7, platelets 894. Impression: 1.Thrombocytosis, likely secondary. 2.Left hip intertrochanteric fracture, status post surgery. 3.Hypertension. 4.Acute blood loss anemia. Plan: We will go ahead and continue current anticoagulation therapy. We will plan to go ahead and dany wong to provide physical therapy under guidance of Dr. King. The patient was requested to be seen by [employer], Dr. Thornton and I did communicate with her and she informed me that at this point for her thrombocytosis, there is no need for intervention and it is likely to be secondary with her c urrent acute medical illness and no need for any further intervention at this point, and she will fol low up on outpatient basis after she gets discharged from the hospital. I have repeated another urin alysis today and that came back normal as well. I will be out of town until Friday and for any emerg ency purposes, hospitalist service will cover this patient in my office and I have discussed details with hospitalist. BETH/MODL Voice ID: [id number] Report ID: [id number]
[2022-08-29] MEDS: BISOPROLOL 5 MG TABLET PO SCH (19:45)
[2022-08-29] MEDS: ROSUVASTATIN 10 MG TAB PO SCH (19:46)
--- NOTE | 2022-08-29 19:49 | R.PN ---
PROGRESS NOTES ENCOUNTER DATE AND TIME: 08/29/2022 19:44 (CDT) NAME NATHAN MONTEJO DATE OF : 1955 DATE OF ADMISSION: 08/20/2022 11:00 (CDT) S72.142 intertrochanteric fracture of left femurCHIEF COMPLAINT: Left hip fracture. SUBJECTIVE: Pt denied any Shortness of Breath. Pt denied any depression. WBC 9.0, Hgb 10.1, prealbumin 10.6, Na 137, glucose 109. Urine cultures > 100,000 CFU and 4+ gram neg ative rods. Sensitiity is pending. Physical and occupational therapy done with moderate to maximum assistance due to pain and muscle spa sms. Therapeutic exercises done with minimum assistance. Ambulated 400' with a rolling walker, SBA and TDWB. Peripheral smear show macrocytic anemia and thrombocytosis. No pathological changes noted VITAL SIGNS Temperature: 97.6 F SBP/DBP: 117/55 Pulse: 64 Resp: 16 MEDICATION ALLERGIES: Morphine Codeine Advil Hydrocodone Antihistamines Nabumetone ENVIRONMENTAL ALLERGIES: - Substance Allergies None Known - Other Allergies None Known NURSING: - Shower allowing shower - Skin care per protocol PRECAUTIONS: - Anterior Hip Precaution No abduction No active extension No adduction across midline No external rotation No hip flexion >90 degrees No internal rotation - Posterior Hip Precaution No adduction across midline No external rotation No hip flexion >90 degrees No internal rotation No wheel chair propulsion - Weight Bearing Precaution TTWB left LE ACTIVITIES OOB only with supervision THERAPIES: - Dietary and Nutrition Adequate Nutrition. Nutritional Education. Nutritional Supplements. - Occupational Therapy Cognitive Retraining. Patient needs Occupational Therapy for a daily minimum of 1.5 hours at least 5 out of 7 days, to improve Activities of Daily Living, including: Eating, Grooming, Bathing, Dressing, Toileting, Toilet Transfers, Community Reintegration, Higher functional activities, Adaptive Equipme nt, Splinting, Household Tasks, and Other activities as determined. Visual Perceptual Training. - Physical Therapy Patient needs Physical Therapy for a daily minimum of 1.5 hours at least 5 out of 7 days, to improve: Mobility, Strengthening, Transfers, Stretching, ROM, Endurance, Ability to manage stairs, Gait, and Balance. PHYSICAL EXAM - Gen No apparent distress - Skin Left hip incision intact. No abnormalities - Eyes No abnormalities - ENMT No abnormalities - Neck No abnormalities - CVS RRR - Chest No abnormalities - Resp No wheezing - Abd + bowel sounds - GI Soft Deferred - No abnormalities - Ext Mild left lower extremity edema. - MSK 4+/5 weakness in left lower extremity - Neuro 4/5 strength left lower extremity. - Psych No abnormalities ASSESSMENT: Pt. is a 66 yo Right-handed WF.Her impairment category is Orthopaedic Disorders 08 - Unilateral Hip Fracture (07.11).Pre-morbidly, Pt. was independent/mod-I in Locomotion and Self-Care; and she had goo d Balance, Transfers Control, Endurance, and Safety Awareness.Currently, she has deficits of Locomoti on, Safety Awareness, Balance, Transfers Control, Self-Care, and Endurance.Pt. is now referred to [facility] for acute in-patient rehabilitation in order to maximize patient's fun ctional independence in activities of daily living, strength, ROM, and mobility.- Rehab Goal Patient has realistic goal of being discharged at assistance level 6-Lamont to reside at Home with Fam sebastien/Relatives. MDM/PLAN: - Physical Therapy Decreased range of motion - to improve, our physical therapists will perform initial evaluation of p t's status upon admission and devise an individualized program for increasing patient's Range of Skyler on. Inability to transfer - to improve, our physical therapists will perform initial evaluation of pt's status upon admission and devise an individualized program for Bed mobility Need for home safety evaluation - to improve, our physical therapists will perform initial evaluatio n of pt's status upon admission and devise an individualized program for Home Evaluation Need in caregiver upon discharge - to improve, our physical therapists will perform initial evaluati on of pt's status upon admission and devise an individualized program for Caregiver Training New precaution - to improve, our physical therapists will perform initial evaluation of pt's status upon admission and devise an individualized program for Patient precaution education Edema - to improve, our physical therapists will perform initial evaluation of pt's status upon admi ssion and devise an individualized program for Elevation Training, and Lymphedema Therapy Poor balance - to improve, our physical therapists will perform initial evaluation of pt's status up on admission and devise an individualized program for Balance Training Poor endurance - to improve, our physical therapists will perform initial evaluation of pt's status upon admission and devise an individualized program for Endurance Training Achieving independence - to improve, our physical therapists will perform initial evaluation of pt's status upon admission and devise an individualized program for Community Reintegration Activities - Occupational Therapy ADL deficits - to improve, our occupation therapists will perform initial evaluation of pt's status upon admission and devise an individualized program for Bathing, Bed mobility, Community Reintegratio n, Cooking, Dressing, Eating, Fine Motor Skills, Grooming, Homemaking, Kitchen Mobility, Laundry, Pat ient Education, Safety Awareness, Splinting - Positioning, Transfers(Toilet, Tub, Shower), and Wheel Chair Management Need for medicare sales executive - to improve, our occupation therapists will perform initial evaluation of pt's status upon admission and devise an individualized program for Caregiver Training - Other See attached MAR (Medication Administration Record) - Anterior Hip Precaution No abduction No active extension No adduction across midline No external rotation No hip flexion >90 degrees No internal rotation - Diet - Liquid Texture Continue Regular - Tube Feed Continue N/A - Diet Type Continue Regular - Posterior Hip Precaution No adduction across midline No external rotation No hip flexion >90 degrees No internal rotation No wheel chair propulsion - Weight Bearing Precaution TTWB left LE - Skin care per protocol - Diet - Solid Texture Continue Regular - Shower allowing shower FUNCTIONAL STATUS: UPDATED AT WEEKLY TEAM CONFERENCE - Bladder Same accident frequency: 7-Ind - No accidents in the past 7 days - Bowel Same accident frequency: 7-Ind - No accidents in the past 7 days - Walking Same score based on distance walked: 0(N/A) - Wheelchair Same score based on distance traveled: 0(N/A) FUNCTIONAL STATUS: - Self-Care A. Eating Ind B. Grooming sup C. Bathing Katharina D. Dressing - Upper Katharina E. Dressing - Lower modA F. Toileting Katharina - Sphincter Control G. Bladder control Lamont H. Bowel control Lamont - Transfers Control I. Bed/Chair/Wheelchair maxA J. Toilet maxA K. Tub/Shower maxA - Locomotion L. Walk/Wheelchair (B) modA M. Stairs maxA - Communication N. Comprehension (B) Lamont O. Expression (B) Lamont - Social Cognition P. Social Interaction Lam[place] Q. Problem Solving Lam[place] R. Memory [place] - Endurance Poor - Balance Poor - Safety Awareness Fair QI SCORES: - Self-Care A. Eating 05-Setup or clean-up assistance B. Oral hygiene 05-Setup or clean-up assistance C. Toileting hygiene 03-Partial/moderate assistance E. Shower/bathe self 02-Substantial/maximal assistance F. Upper body dressing 05-Setup or clean-up assistance G. Lower body dressing 02-Substantial/maximal assistance H. Putting on/taking off footwear 02-Substantial/maximal assistance - Mobility A. Roll left and right 03-Partial/moderate assistance B. Sit to lying 03-Partial/moderate assistance C. Lying to sitting on side of bed 03-Partial/moderate assistance D. Sit to stand 88-Not attempted due to medical condition or safety concerns E. Chair/wbt-[id number] transfer 88-Not attempted due to medical condition or safety concerns F. Toilet transfer 88-Not attempted due to medical condition or safety concerns G. Car transfer 88-Not attempted due to medical condition or safety concerns I. Walk 10 feet 88-Not attempted due to medical condition or safety concerns J. Walk 50 feet with two turns 88-Not attempted due to medical condition or safety concerns K. Walk 150 feet 88-Not attempted due to medical condition or safety concerns L. Walking 10 feet on uneven surfaces 88-Not attempted due to medical condition or safety concerns M. 1 step (curb) 88-Not attempted due to medical condition or safety concerns N. 4 steps 88-Not attempted due to medical condition or safety concerns O. 12 steps 88-Not attempted due to medical condition or safety concerns P. Picking up object 88-Not attempted due to medical condition or safety concerns R. Wheel 50 feet with two turns 09-Not applicable S. Wheel 150 feet 09-Not applicable - Bladder and Bowel Bladder continence 0-Always continent Bowel continence 0-Always continent CURRENT FUNC. DEFICITS: Self-Care and Mobility SIGNATURE PANEL: (CDT)
[2022-08-30] MEDS: AMLODIPINE 5 MG TAB PO SCH ×2 (07:36→20:21)
[2022-08-30] MEDS: SODIUM CHLORIDE 1 GM TAB PO SCH (07:36)
[2022-08-30] MEDS: APIXABAN 2.5 MG TABLET PO SCH ×2 (07:36→20:20)
[2022-08-30] MEDS: LIDOCAINE 4% PATCH TOP SCH (07:36)
[2022-08-30] MEDS: CRANBERRY FRUIT EXTRACT 200 MG CAP PO SCH ×2 (07:37→20:20)
[2022-08-30] MEDS: LOSARTAN POTASSIUM 50 MG TABLET PO SCH (07:38)
[2022-08-30] MEDS: MAGNESIUM OXIDE 400 MG TAB PO SCH ×2 (07:38→20:21)
[2022-08-30] MEDS: JUVEN PACKET PO SCH ×2 (07:40→20:00)
[2022-08-30] MEDS: ENSURE HIGH PROTEIN 237 ML CAN PO SCH ×2 (07:40→20:20)
--- NOTE | 2022-08-30 09:58 | P.RH.PN ---
Estimated Length of Stay: 17 Expected Discharge Date: 09/09/22 Discharge Disposition Plan: Home Family Support: Yes Senior Care Goal: Mobility, Transfers, Self Care Vital Signs: Last Vital Signs Temp 97.6 F 08/30/22 07:30 Pulse 68 08/30/22 07:36 Resp 16 08/30/22 07:30 BP 154/67 H 08/30/22 07:36 Pulse Ox 99 08/30/22 07:30 Laboratory: Laboratory Last Values WBC 9.00 K/uL (4.3-10.9) 08/29/22 04:18 RBC 2.80 M/uL (3.86-4.86) L 08/29/22 04:18 Hgb 10.1 g/dL (12.0-15.0) L 08/29/22 04:18 Hct 29.5 % (36.0-45.0) L 08/29/22 04:18 MCV 105.4 fL (80-100) H 08/29/22 04:18 MCH 36.1 pg (27.0-35.0) H 08/29/22 04:18 MCHC 34.2 g/dL (32.0-36.0) 08/29/22 04:18 RDW 19.3 % (12.1-15.2) H 08/29/22 04:18 Plt Count 850 K/uL (152-406) H 08/29/22 04:18 MPV 7.2 fL (7.6-11.3) L 08/29/22 04:18 Neutrophils % 67.2 % (41.7-73.7) 08/29/22 04:18 Lymphocytes % 16.2 % (15.3-44.8) 08/29/22 04:18 Monocytes % 10.7 % (3.3-12.3) 08/29/22 04:18 Eosinophils % 4.9 % (0-4.4) H 08/29/22 04:18 Basophils % 1.0 % (0-1.3) 08/29/22 04:18 Absolute Neutrophils 6.0 K/uL (1.8-8.0) 08/29/22 04:18 Segmented Neutrophils 77 % (40-80) 08/26/22 04:13 Absolute Lymphocytes 1.5 K/uL (0.7-4.9) 08/29/22 04:18 Lymphocytes 8 % (15-42) L 08/26/22 04:13 Monocytes 12 % (0-10) H 08/26/22 04:13 Absolute Monocytes 1.0 K/uL (0.1-1.3) 08/29/22 04:18 Eosinophils 3 % (0-3) 08/26/22 04:13 Absolute Eosinophils 0.4 K/uL (0-0.5) 08/29/22 04:18 Absolute Basophils 0.1 K/uL (0-0.5) 08/29/22 04:18 Platelet Estimate Incr 08/26/22 04:13 Giant Platelets Present 08/25/22 04:29 Anisocytosis 1+ 08/26/22 04:13 Macrocytosis 1+ 08/26/22 04:13 Morphology Comment Noted (NOT SEEN) 08/26/22 04:13 Sodium 137 mmol/L (136-145) 08/29/22 04:18 Potassium 4.1 mmol/L (3.5-5.1) 08/29/22 04:18 Chloride 104 mmol/L (98-107) 08/29/22 04:18 Carbon Dioxide 29 mmol/L (21-32) 08/29/22 04:18 Anion Gap 8.1 mEq/L (5.0-15.0) 08/29/22 04:18 BUN 14 mg/dL (7-18) 08/29/22 04:18 Creatinine 0.58 mg/dL (0.55-1.3) 08/29/22 04:18 Est GFR (CKD-EPI) 99 ml/min (=/>90) 08/29/22 04:18 Glucose 109 mg/dL (74-106) H 08/29/22 04:18 POC Glucose 101 mg/dL (65-120) 08/21/22 18:38 Calcium 9.2 mg/dL (8.5-10.1) 08/29/22 04:18 Magnesium 1.9 mg/dL (1.8-2.4) 08/29/22 04:18 Albumin 2.7 g/dL (3.4-5.0) L 08/29/22 04:18 Prealbumin 10.6 mg/dL (20-40) L 08/29/22 04:18 Urine Color Colorless (Yellow) 08/28/22 08:30 Urine Clarity Clear (Clear) 08/28/22 08:30 Urine pH 7.0 (5.0-7.0) 08/28/22 08:30 Ur Specific [place] 1.006 (1.005-1.030) 08/28/22 08:30 Glucose (UA)(Auto) Negative (Negative) 08/28/22 08:30 Urine Ketones Negative (Negative) 08/28/22 08:30 Urine Blood Negative (Negative) 08/28/22 08:30 Urine Nitrite Negative (Negative) 08/28/22 08:30 Urine Bilirubin Negative (Negative) 08/28/22 08:30 Urine Urobilinogen Normal (Normal) 08/28/22 08:30 Ur Leukocyte Esterase 75 Aminata/uL (Negative) H 08/28/22 08:30 Urine RBC <5 /HPF (None Seen) 08/28/22 08:30 Urine WBC 5-10 /HPF (<5) 08/28/22 08:30 Ur Squamous Epith Cells <5 /HPF (None Seen) 08/28/22 08:30 Urine Bacteria <20 /HPF (<20) 08/28/22 08:30 Hyaline Casts 0-5 /LPF (None Seen) 08/23/22 15:50 Urine Mucus Slight /HPF (None Seen) 08/23/22 15:50 Urine Total Protein Negative (Negative) 08/28/22 08:30 SARS-CoV-2 Rap RNA(RT-PCR) Negative (NEGATIVE) 08/27/22 14:10 Smear Scan Ok (OK) 08/25/22 04:29 Weight: 147 lb 11.2 oz Wound Present: Yes Closed Surgical Incision Present: Yes Negative Pressure Wound Therapy Present: No Physician Update: Labs reviewed. Doing better walking 300' with CGA and rest. Transfers CGA to min assistance. Much less anxiet and mod I, going to the bathroom. Transferring to the tub and min assistance. Functional Improvement: Patient has met all short-term and long-term goals at this time. Patient has progressed well, and developed a great attitude toward therapy. Summary: Patient's care plan and fdc goals have been reviewed and revised as necessary. Please see the Rehabilitation Signature page for all necessary signatures.
[2022-08-30] MEDS: ROSUVASTATIN 10 MG TAB PO SCH (20:22)
[2022-08-30] MEDS: BISOPROLOL 5 MG TABLET PO SCH (20:23)
[2022-08-31] MEDS: JUVEN PACKET PO SCH ×2 (08:00→20:00)
[2022-08-31] MEDS: ENSURE HIGH PROTEIN 237 ML CAN PO SCH ×2 (08:00→20:00)
[2022-08-31] MEDS: CRANBERRY FRUIT EXTRACT 200 MG CAP PO SCH ×2 (09:15→20:43)
[2022-08-31] MEDS: LOSARTAN POTASSIUM 50 MG TABLET PO SCH (09:15)
[2022-08-31] MEDS: AMLODIPINE 5 MG TAB PO SCH ×2 (09:16→20:00)
[2022-08-31] MEDS: LIDOCAINE 4% PATCH TOP SCH (09:17)
[2022-08-31] MEDS: MAGNESIUM OXIDE 400 MG TAB PO SCH ×2 (09:17→20:43)
[2022-08-31] MEDS: CYANOCOBALAMIN 1,000 MCG TAB PO SCH (09:17)
[2022-08-31] MEDS: APIXABAN 2.5 MG TABLET PO SCH ×2 (12:24→20:43)
[2022-08-31] MEDS: ROSUVASTATIN 10 MG TAB PO SCH (20:43)
[2022-08-31] MEDS: BISOPROLOL 5 MG TABLET PO SCH (20:45)
[2022-09-01] MEDS: MAGNESIUM OXIDE 400 MG TAB PO SCH ×2 (07:34→20:22)
[2022-09-01] MEDS: APIXABAN 2.5 MG TABLET PO SCH ×2 (07:34→20:22)
[2022-09-01] MEDS: LIDOCAINE 4% PATCH TOP SCH (07:34)
[2022-09-01] MEDS: LOSARTAN POTASSIUM 50 MG TABLET PO SCH (07:35)
[2022-09-01] MEDS: CRANBERRY FRUIT EXTRACT 200 MG CAP PO SCH ×2 (07:35→20:22)
[2022-09-01] MEDS: AMLODIPINE 5 MG TAB PO SCH ×2 (07:35→20:22)
[2022-09-01] MEDS: CYANOCOBALAMIN 1,000 MCG TAB PO SCH (07:35)
[2022-09-01] MEDS: JUVEN PACKET PO SCH ×2 (07:36→20:00)
[2022-09-01] MEDS: ENSURE HIGH PROTEIN 237 ML CAN PO SCH ×2 (07:36→20:00)
[2022-09-01] MEDS: BISOPROLOL 5 MG TABLET PO SCH (20:21)
[2022-09-01] MEDS: ROSUVASTATIN 10 MG TAB PO SCH (20:21)
[2022-09-02] MEDS: JUVEN PACKET PO SCH ×2 (08:00→20:00)
[2022-09-02] MEDS: ENSURE HIGH PROTEIN 237 ML CAN PO SCH ×2 (08:00→20:00)
[2022-09-02] MEDS: CRANBERRY FRUIT EXTRACT 200 MG CAP PO SCH ×2 (08:13→19:59)
[2022-09-02] MEDS: LIDOCAINE 4% PATCH TOP SCH (08:13)
[2022-09-02] MEDS: AMLODIPINE 5 MG TAB PO SCH ×2 (08:14→20:00)
[2022-09-02] MEDS: CYANOCOBALAMIN 1,000 MCG TAB PO SCH (08:14)
[2022-09-02] MEDS: APIXABAN 2.5 MG TABLET PO SCH ×2 (08:14→20:00)
[2022-09-02] MEDS: MAGNESIUM OXIDE 400 MG TAB PO SCH ×2 (08:35→20:00)
[2022-09-02] MEDS: LOSARTAN POTASSIUM 50 MG TABLET PO SCH (11:23)
--- NOTE | 2022-09-02 18:25 | R.PN ---
PROGRESS NOTES ENCOUNTER DATE AND TIME: 09/02/2022 18:17 (CDT) NAME NATHAN MONTEJO DATE OF : 1955 DATE OF ADMISSION: 08/20/2022 11:00 (CDT) S72.142 intertrochanteric fracture of left femurCHIEF COMPLAINT: Left hip fracture. SUBJECTIVE: Pt denied any Shortness of Breath. Pt denied any depression. WBC 9.0, Hgb 10.1, prealbumin 10.6, Na 137, glucose 109. Urine cultures > 100,000 CFU and 4+ gram neg ative rods. Sensitiity is pending. Physical and occupational therapy done with moderate to maximum assistance due to pain and muscle spa sms. Therapeutic exercises done with minimum assistance. Ambulated 400' with a rolling walker, independence and TDWB. Self-propelled wheelchair 250' with inde pendence. Peripheral smear show macrocytic anemia and thrombocytosis. No pathological changes noted Up and down 13 steps with independence. VITAL SIGNS Temperature: 98.2 F SBP/DBP: 125/54 Pulse: 73 Resp: 16 MEDICATION ALLERGIES: Morphine Codeine Advil Hydrocodone Antihistamines Nabumetone ENVIRONMENTAL ALLERGIES: - Substance Allergies None Known - Other Allergies None Known NURSING: - Shower allowing shower - Skin care per protocol PRECAUTIONS: - Anterior Hip Precaution No abduction No active extension No adduction across midline No external rotation No hip flexion >90 degrees No internal rotation - Posterior Hip Precaution No adduction across midline No external rotation No hip flexion >90 degrees No internal rotation No wheel chair propulsion - Weight Bearing Precaution TTWB left LE ACTIVITIES OOB only with supervision THERAPIES: - Dietary and Nutrition Adequate Nutrition. Nutritional Education. Nutritional Supplements. - Occupational Therapy Cognitive Retraining. Patient needs Occupational Therapy for a daily minimum of 1.5 hours at least 5 out of 7 days, to improve Activities of Daily Living, including: Eating, Grooming, Bathing, Dressing, Toileting, Toilet Transfers, Community Reintegration, Higher functional activities, Adaptive Equipme nt, Splinting, Household Tasks, and Other activities as determined. Visual Perceptual Training. - Physical Therapy Patient needs Physical Therapy for a daily minimum of 1.5 hours at least 5 out of 7 days, to improve: Mobility, Strengthening, Transfers, Stretching, ROM, Endurance, Ability to manage stairs, Gait, and Balance. PHYSICAL EXAM - Gen No apparent distress - Skin Left hip incision intact. No abnormalities - Eyes No abnormalities - ENMT No abnormalities - Neck No abnormalities - CVS RRR - Chest No abnormalities - Resp No wheezing - Abd + bowel sounds - GI Soft Deferred - No abnormalities - Ext Mild left lower extremity edema. - MSK 4+/5 weakness in left lower extremity - Neuro 4/5 strength left lower extremity. - Psych No abnormalities ASSESSMENT: Pt. is a 66 yo Right-handed WF.Her impairment category is Orthopaedic Disorders 08 - Unilateral Hip Fracture (07.11).Pre-morbidly, Pt. was independent/mod-I in Locomotion and Self-Care; and she had goo d Balance, Transfers Control, Endurance, and Safety Awareness.Currently, she has deficits of Locomoti on, Safety Awareness, Balance, Transfers Control, Self-Care, and Endurance.Pt. is now referred to [facility] for acute in-patient rehabilitation in order to maximize patient's fun ctional independence in activities of daily living, strength, ROM, and mobility.- Rehab Goal Patient has realistic goal of being discharged at assistance level 6-Lamont to reside at Home with Fam sebastien/Relatives. MDM/PLAN: - Physical Therapy Decreased range of motion - to improve, our physical therapists will perform initial evaluation of p t's status upon admission and devise an individualized program for increasing patient's Range of Skyler on. Inability to transfer - to improve, our physical therapists will perform initial evaluation of pt's status upon admission and devise an individualized program for Bed mobility Need for home safety evaluation - to improve, our physical therapists will perform initial evaluatio n of pt's status upon admission and devise an individualized program for Home Evaluation Need in caregiver upon discharge - to improve, our physical therapists will perform initial evaluati on of pt's status upon admission and devise an individualized program for Caregiver Training New precaution - to improve, our physical therapists will perform initial evaluation of pt's status upon admission and devise an individualized program for Patient precaution education Edema - to improve, our physical therapists will perform initial evaluation of pt's status upon admi ssion and devise an individualized program for Elevation Training, and Lymphedema Therapy Poor balance - to improve, our physical therapists will perform initial evaluation of pt's status up on admission and devise an individualized program for Balance Training Poor endurance - to improve, our physical therapists will perform initial evaluation of pt's status upon admission and devise an individualized program for Endurance Training Achieving independence - to improve, our physical therapists will perform initial evaluation of pt's status upon admission and devise an individualized program for Community Reintegration Activities - Occupational Therapy ADL deficits - to improve, our occupation therapists will perform initial evaluation of pt's status upon admission and devise an individualized program for Bathing, Bed mobility, Community Reintegratio n, Cooking, Dressing, Eating, Fine Motor Skills, Grooming, Homemaking, Kitchen Mobility, Laundry, Pat ient Education, Safety Awareness, Splinting - Positioning, Transfers(Toilet, Tub, Shower), and Wheel Chair Management Need for healthcare associate - to improve, our occupation therapists will perform initial evaluation of pt's status upon admission and devise an individualized program for Caregiver Training - Other See attached MAR (Medication Administration Record) - Anterior Hip Precaution No abduction No active extension No adduction across midline No external rotation No hip flexion >90 degrees No internal rotation - Diet - Liquid Texture Continue Regular - Tube Feed Continue N/A - Diet Type Continue Regular - Posterior Hip Precaution No adduction across midline No external rotation No hip flexion >90 degrees No internal rotation No wheel chair propulsion - Weight Bearing Precaution TTWB left LE - Skin care per protocol - Diet - Solid Texture Continue Regular - Shower allowing shower FUNCTIONAL STATUS: UPDATED AT WEEKLY TEAM CONFERENCE - Bladder Same accident frequency: 7-Ind - No accidents in the past 7 days - Bowel Same accident frequency: 7-Ind - No accidents in the past 7 days - Walking Same score based on distance walked: 0(N/A) - Wheelchair Same score based on distance traveled: 0(N/A) FUNCTIONAL STATUS: - Self-Care A. Eating Ind B. Grooming sup C. Bathing Katharina D. Dressing - Upper Katharina E. Dressing - Lower modA F. Toileting Katharina - Sphincter Control G. Bladder control Lamont H. Bowel control Lamont - Transfers Control I. Bed/Chair/Wheelchair maxA J. Toilet maxA K. Tub/Shower maxA - Locomotion L. Walk/Wheelchair (B) modA M. Stairs maxA - Communication N. Comprehension (B) Lamont O. Expression (B) Lamont - Social Cognition P. Social Interaction Lamont Q. Problem Solving Lamont R. Memory Lamont - Endurance Poor - Balance Poor - Safety Awareness Fair QI SCORES: - Self-Care A. Eating 05-Setup or clean-up assistance B. Oral hygiene 05-Setup or clean-up assistance C. Toileting hygiene 03-Partial/moderate assistance E. Shower/bathe self 02-Substantial/maximal assistance F. Upper body dressing 05-Setup or clean-up assistance G. Lower body dressing 02-Substantial/maximal assistance H. Putting on/taking off footwear 02-Substantial/maximal assistance - Mobility A. Roll left and right 03-Partial/moderate assistance B. Sit to lying 03-Partial/moderate assistance C. Lying to sitting on side of bed 03-Partial/moderate assistance D. Sit to stand 88-Not attempted due to medical condition or safety concerns E. Chair/awv-[id number]-epnow transfer 88-Not attempted due to medical condition or safety concerns F. Toilet transfer 88-Not attempted due to medical condition or safety concerns G. Car transfer 88-Not attempted due to medical condition or safety concerns I. Walk 10 feet 88-Not attempted due to medical condition or safety concerns J. Walk 50 feet with two turns 88-Not attempted due to medical condition or safety concerns K. Walk 150 feet 88-Not attempted due to medical condition or safety concerns L. Walking 10 feet on uneven surfaces 88-Not attempted due to medical condition or safety concerns M. 1 step (curb) 88-Not attempted due to medical condition or safety concerns N. 4 steps 88-Not attempted due to medical condition or safety concerns O. 12 steps 88-Not attempted due to medical condition or safety concerns P. Picking up object 88-Not attempted due to medical condition or safety concerns R. Wheel 50 feet with two turns 09-Not applicable S. Wheel 150 feet 09-Not applicable - Bladder and Bowel Bladder continence 0-Always continent Bowel continence 0-Always continent CURRENT FUNC. DEFICITS: Self-Care and Mobility SIGNATURE PANEL: (CDT)
[2022-09-02] MEDS: ROSUVASTATIN 10 MG TAB PO SCH (19:59)
[2022-09-02] MEDS: BISOPROLOL 5 MG TABLET PO SCH (20:00)
[2022-09-02 20:17] VITALS: TEMP 97.2
[2022-09-03] VITALS: O2SAT 99
[2022-09-03] MEDS: CRANBERRY FRUIT EXTRACT 200 MG CAP PO SCH (07:46)
[2022-09-03] MEDS: LOSARTAN POTASSIUM 50 MG TABLET PO SCH (07:46)
[2022-09-03] MEDS: LIDOCAINE 4% PATCH TOP SCH (07:46)
[2022-09-03] MEDS: AMLODIPINE 5 MG TAB PO SCH (07:46)
[2022-09-03] MEDS: CYANOCOBALAMIN 1,000 MCG TAB PO SCH (07:46)
[2022-09-03] MEDS: APIXABAN 2.5 MG TABLET PO SCH (07:47)
[2022-09-03] MEDS: JUVEN PACKET PO SCH (07:47)
[2022-09-03] MEDS: MAGNESIUM OXIDE 400 MG TAB PO SCH (07:47)
[2022-09-03] MEDS: ENSURE HIGH PROTEIN 237 ML CAN PO SCH (07:47)
[2022-09-03 07:48] VITALS: BP 140/63
--- NOTE | 2022-09-03 08:56 | RAD REPORT ---
[facility] 8:47 am CLINICAL HISTORY: left leg swelling. COMPARISON: None FINDINGS: Left common femoral, superficial femoral, popliteal and posterior tibial veins are compre ssible and demonstrate augmentation. Doppler demonstrates good flow. Grayscale, color and spectral analysis performed on all vessels IMPRESSION: No evidence of deep venous thrombosis involving the left lower extremity.
--- NOTE | 2022-09-03 10:58 | PN ---
Date of Progress Note: 09/02/2022 Subjective: The patient was seen this morning for followup. No new complaints or problems reported by her. She was sitting in a wheelchair. Denies any complaints. Objective: Vital Signs: Reviewed. HEENT: Unremarkable. Lungs: Clear to auscultation. Heart: Sounds normal. Abdomen: Soft. Bowel sounds normal. No guarding, rigidity, tenderness, distention. Extremity: Trace leg edema involving lower leg. Laboratory Data: Urine culture is growing E coli and it is sensitive to all the antibiotics that wer e tested for. Impression: 1.Left hip intertrochanteric fracture. 2.Anemia due to acute blood loss. 3.Urinary tract infection. 4.Hypertension. Plan: The patient had dysuria over a week ago, but does not have that symptom anymore. Her urinalys is was normal, but urine culture still persistently shows this E coli, so we will go ahead and start her on antibiotic. According to culture sensitivity, we will start her on Levaquin. The patient is requesting to go home tomorrow. She will communicate with Dr. King and if it is okay with him, s he will go home tomorrow. I will see her tomorrow morning for followup. We will continue Eliquis fo r anticoagulation therapy. Her pain is much better controlled, so most of the time she does not require any tramadol. Continue current antihypertensive medications. BETH/MODL Voice ID: [id number] Report ID: [id number]
--- NOTE | 2022-09-04 15:14 | DS ---
Date of Discharge: 09/03/2022 Disposition: Discharged to home. Physical Examination: HEENT: Unremarkable. Lungs: Clear to auscultation. Heart: Sounds normal. Abdomen: Soft. Bowel sounds normal. No guarding, rigidity, tenderness, distention. Extremity: No leg edema . Laboratory Data: Venous Doppler of the left leg was negative for DVT. White count on 08/29/2022 was , hemoglobin 10.1, platelets 850. On 08/27/2022, platelet count was 864 and that was ____ . Upon admission platelet count was . Last chemistry on 08/29/2022; sodi um 137, potassium 4.1, chloride 104, bicarb 29, BUN 14, creatinine 0.58, glucose 109. Discharge Diagnoses: 1.Left hip intertrochanteric fracture acute blood loss. 2.Hypertension. 3.Hyperlipidemia. 4.Peripheral artery disease . 5.Osteoporosis. Discharge Medications And Instructions: 1.Continue prior home medications except do not take Fosamax amlodipine 5 mg, the patient to take 1 tablet by mouth daily. 2.Take Levaquin 500 mg daily for 1 week. 3.Tramadol 50 mg take 1 tablet by mouth 3 times a day as needed for pain. 4.Eliquis 2.5 mg 1 tablet by mouth 2 times a day for 2 weeks. 5.Follow up in my office next week. 6.Follow up with resume specialist in 2 weeks. Hospital Course: A 66-year-old pleasant female patient, who Dr. King. Her hemoglobin remained stable, pain was well controlled pain medications. Her platelet count started t o go up during this rehab stay and Neurology consultation requested . Her urinalysis was u nremarkable, but the urine culture grew negative for any kind of infection , so we will go ahead and stop as she was noted to have leg swelling . The patient w as discharged to go home in stable condition with above medications and instructions. BETH/JENNIFER Voice ID: [id number] Report ID: [id number]
== END 2022-09-03 13:05 | disposition home health service (06) | DRG 560 ==
LOC: 5TH 08-20 11:09
PROVIDERS: ADMIT Internal Medicine; ATTEND Internal Medicine
DX: Z47.1 Aftercare following joint replacement surgery (principal); D62 Acute posthemorrhagic anemia; E87.1 Hypo-osmolality and hyponatremia; Z16.12 Extended spectrum beta lactamase (ESBL) resistance; C34.90 Malignant neoplasm of unspecified part of unspecified bronchus or lung; N39.0 Urinary tract infection, site not specified; I73.9 Peripheral vascular disease, unspecified; I10 Essential (primary) hypertension; E78.5 Hyperlipidemia, unspecified; F41.9 Anxiety disorder, unspecified; D75.839 Thrombocytosis, unspecified; F17.200 Nicotine dependence, unspecified, uncomplicated; B96.20 Unspecified Escherichia coli [E. coli] as the cause of diseases classified elsewhere; B96.4 Proteus (mirabilis) (morganii) as the cause of diseases classified elsewhere; Z88.5 Allergy status to narcotic agent; Z88.8 Allergy status to other drugs, medicaments and biological substances; Z79.01 Long term (current) use of anticoagulants; Z96.642 Presence of left artificial hip joint; Z79.899 Other long term (current) drug therapy; Z20.822 Contact with and (suspected) exposure to COVID-19
CPT/HCPCS: 36415; 80048; 81001; 82040; 82947; 83735; 84134; 85025; 87077; 87086; 87088; 87186; 93971; 97110; 97112; 97116; 97161; 97165; 97530; 97537; 97542; 99251; J2001; U0003